=== PATIENT | male | born 1940 | race Caucasian/White ===

== ENCOUNTER → 2016-12-21 | Outpatient (CLI) | payer BC ==
[~2016-12-21] MED LIST: ASPEC81 PO; CMD/25 PO; CMD5 PO; FLM4 PO; LPT40 PO; MAGN400T6 PO; MULT-513 PO
[2016-12-21 17:35] LABS: BASO % 0.5 %; BASO ABS # 0.04 K/uL (0-0.2); COMPLETE YES; HEMATOCRIT 43.1 % (42-52); IG% 0.3 %; LYMPH % 20.4 %; LYMPH ABS # 1.78 K/uL (1.2-3.4); MEAN CELL VOLUME 95.4 fL (80-100); MEAN CORPUSCULAR HEMOGLOBIN 30.8 pg (25-34); MEAN CORPUSCULAR HGB CONC 32.3 g/dl (32-36); MEAN PLATELET VOLUME 10.5 fL (7.4-10.4); MONO % 11.6 %; NEUT % 65.2 %; PLATELET COUNT 281 K/uL (130-400); RED BLOOD COUNT 4.52 M/uL (4.7-6.1); WHITE BLOOD COUNT 8.71 K/uL (4.8-10.8)
== END | disposition home or self-care (01) ==
LOC: C.LAB1850 15:52
PROVIDERS: ATTEND Physician Assistant
DX: R10.9 Unspecified abdominal pain (principal)

== ENCOUNTER → 2017-01-07 | Outpatient (CLI) | payer BC ==
[2017-01-07 17:27] LABS: BLOOD UREA NITROGEN 20 mg/dl (7-18); BUN/CREATININE RATIO 20.7 (10-20); CREATININE 0.99 mg/dl (0.60-1.40)
== END | disposition home or self-care (01) ==
LOC: C.LAB1850 15:35
PROVIDERS: ATTEND Physician Assistant
DX: K57.32 Diverticulitis of large intestine without perforation or abscess without bleeding (principal); K40.90 Unilateral inguinal hernia, without obstruction or gangrene, not specified as recurrent; K43.2 Incisional hernia without obstruction or gangrene; R10.9 Unspecified abdominal pain

== ENCOUNTER → 2017-01-10 | Outpatient (CLI) | payer BC ==
[~2017-01-10] MED LIST changes: +OPTIRAY 320 IV PRN
--- NOTE | 2017-01-10 10:38 | DIAGNOSTIC IMAGING REPORT ---
ABDOMEN AND PELVIS CT WITH IV AND ORAL CONTRAST CT DOSE: 462.25 mGycm HISTORY: Pancreatic lesion 01/07/17 1537 CREAK 0.99 TECHNIQUE: Multiaxial CT images of the abdomen and pelvis were performed following the use of intravenous and oral contrast. COMPARISON STUDY: 05/04/2015 FINDINGS: Lung bases are clear. Liver enhances uniformly. Pancreatitis in the prior study has resolved. There continues to be a 2.2 cm cystic process in the region of the pancreatic uncinate process. This is unchanged from the prior 2 studies. Shows no significant postcontrast enhancement. Pancreas is uniform throughout. Inferior vena cava filter is present. Kidneys enhance uniformly. There is no evidence for hydronephrosis. There is no significant retroperitoneal or mesenteric adenopathy. There are findings of a prior revised left ostomy. There is a small residual ventral hernia containing fat exclusively. This is unchanged from the prior exam. Prostate is slightly prominent. Bladder is relatively collapsed. IMPRESSION: 1. Stable cystic lesion of the pancreatic uncinate process. 2. Prior cholecystectomy and inferior vena caval filter placement. 3. No acute process currently of the abdomen and pelvis.. Electronically signed by: Len Chauhan M.D. 01/10/2017 10:37 AM Dictated Date/Time: 01/10/2017 10:31 AM
== END | disposition home or self-care (01) ==
LOC: C.CTS 09:58
PROVIDERS: ATTEND Physician Assistant
DX: K43.2 Incisional hernia without obstruction or gangrene (principal); K57.32 Diverticulitis of large intestine without perforation or abscess without bleeding; K86.9 Disease of pancreas, unspecified; R10.9 Unspecified abdominal pain

== ENCOUNTER → 2017-05-18 | Outpatient (CLI) | payer BC ==
[~2017-05-18] MED LIST changes: -OPTIRAY 320 IV PRN
[2017-05-18 09:33] LABS: BASO % 0.8 %; BASO ABS # 0.04 K/uL (0-0.2); COMPLETE YES; EOS % 3.7 %; IG% 0.4 %; LYMPH % 31.3 %; LYMPH ABS # 1.53 K/uL (1.2-3.4); MEAN CELL VOLUME 95.1 fL (80-100); MEAN CORPUSCULAR HEMOGLOBIN 31.1 pg (25-34); MEAN CORPUSCULAR HGB CONC 32.7 g/dl (32-36); MEAN PLATELET VOLUME 11.3 fL (7.4-10.4); MONO % 16.8 %; PLATELET COUNT 209 K/uL (130-400); RED BLOOD COUNT 4.73 M/uL (4.7-6.1); WHITE BLOOD COUNT 4.89 K/uL (4.8-10.8)
[2017-05-18 09:54] LABS: ALT/SGPT 36 U/L (12-78); AST/SGOT 39 U/L (15-37); BLOOD UREA NITROGEN 23 mg/dl (7-18); BUN/CREATININE RATIO 22.6 (10-20); CALCIUM 9.3 mg/dl (8.5-10.1); CARBON DIOXIDE 30 mmol/L (21-32); CHLORIDE 106 mmol/L (98-107); CHOLESTEROL 169 mg/dl (0-200); GLUCOSE 90 mg/dl (70-99); HDL CHOLESTEROL 86 mg/dl; LDL CHOLESTEROL CALCULATED 68 mg/dl; POTASSIUM 4.1 mmol/L (3.5-5.1); SODIUM 139 mmol/L (136-145); TRIGLYCERIDES 74 mg/dl (0-150); VERY LOW DENSITY LIPOPROT CALC 15 mg/dl
[2017-05-18 09:56] LABS: ESTIMATED AVERAGE GLUCOSE 123 mg/dl; HA1C FLAG Normal (Normal)
--- NOTE | 2017-06-02 07:30 | CODING QUERY MEDICAL NECESSITY ---
SUPPORTING DIAGNOSIS NEEDED Dr. Delacruz, A supporting diagnosis is required for the test/procedure performed on this patient in order for us to be reimbursed by the patient's insurance. Please provide a supporting diagnosis for the following test/procedure listed below next to the test name along with your signature. *If there is no additional diagnosis for this patient that would support the following test/procedure please document that below next to the test/procedure. Test(s)/Procedure(s) that require a supporting diagnosis: * 94199 GLYCATED HEMOGLOBIN DIAGNOSIS: DATE OF SERVICE: 05/18/17 Provider Signature: Date: Thank you Bishnu Marroquin [facility] Information Management Once completed, please kindly fax back to [phone] For questions please call [phone]
== END | disposition home or self-care (01) ==
LOC: C.LAB1850 07:27
PROVIDERS: ATTEND Internal Medicine
DX: E78.5 Hyperlipidemia, unspecified (principal)

== ENCOUNTER → 2017-06-14 | Outpatient (CLI) | payer BC | END | disposition home or self-care (01) | LOC: C.LAB1850 15:35 | PROVIDERS: ATTEND Urology | DX: N40.1 Benign prostatic hyperplasia with lower urinary tract symptoms (principal) ==

== ENCOUNTER → 2017-09-09 | Outpatient (CLI) | payer BC | END | disposition home or self-care (01) | LOC: C.PATHSPEC 16:37 | PROVIDERS: ATTEND Physician Assistant | DX: L43.9 Lichen planus, unspecified (principal) ==

== ENCOUNTER → 2017-10-13 | Outpatient (CLI) | payer BC ==
[~2017-10-13] MED LIST changes: -ASPEC81 PO; +ASPI81TA28 PO; +DUTA0.5C PO; -FLM4 PO; +IBUP1CAP9 PO; +NTRGSL/4 UT; +OPTIRAY 320 IV PRN; +TAMS0.4C38 PO
--- NOTE | 2017-10-13 14:32 | DIAGNOSTIC IMAGING REPORT ---
ABD/PELVIS IV AND ORAL CONT CT DOSE: 397.80 mGy.cm HISTORY: Incisional hernia INCISIONAL HERNIA, PRE-OP TECHNIQUE: Multiaxial CT images of the abdomen and pelvis were performed following the use of intravenous and oral contrast. A dose lowering technique was utilized adhering to the principles of ALARA. COMPARISON STUDY: 01/10/2017 FINDINGS: Minimal dependent basilar atelectasis. Liver spleen and pancreas are uniform. Cystic lesion at pancreatic uncinate process is similar. It has a maximum current dimensions of 2.2 cm and is unchanged. Pancreatic duct shows no evidence for distention. Inferior vena caval filter is present. Kidneys enhance uniformly. No evidence for hydronephrosis. Bowel pattern is nonobstructive. There is left anterior abdominal wall hernia. This is a fat-containing with no evidence for a bowel component. Has a maximum transaxial dimension of 2.1 cm. There is a small periumbilical hernia containing a small amount of fat. This is a maximum diameter of 4 mm and is unchanged. Bladder is midline. There is no free fluid within the pelvic cul-de-sac. IMPRESSION: 1. Fat-containing left anterior wall ventral hernia containing fat exclusively. 2. This is a maximum diameter of 2.1 cm 3. Very small periumbilical hernia having a maximum diameter of 4 mm. 4. Cystic lesion of the pancreas unchanged from the prior study. The above report was generated using voice recognition software. It may contain grammatical, syntax or spelling errors. Electronically signed by: Len Chauhan M.D. 10/13/2017 2:31 PM Dictated Date/Time: 10/13/2017 2:23 PM
== END | disposition home or self-care (01) ==
LOC: C.CTS 13:46
PROVIDERS: ATTEND Surgery
DX: K43.2 Incisional hernia without obstruction or gangrene (principal); K43.9 Ventral hernia without obstruction or gangrene; K42.9 Umbilical hernia without obstruction or gangrene; K86.9 Disease of pancreas, unspecified

== ENCOUNTER 2017-10-24 05:12 | Inpatient (IN) | payer BC, OTHER ==
[2017-10-10 08:47] VITALS: BMI 24.0
--- NOTE | 2017-10-10 09:27 | PAT Medication Instructions ---
Service Date Oct 10, 2017. Current Home Medication List Aspirin (Aspirin Ec), 81 MG PO QPM Atorvastatin (Lipitor), 40 MG PO QPM Dutasteride (Avodart), 0.5 MG PO QPM Ibuprofen (Ibuprofen), 200 MG PO PRN Magnesium Oxide (Mag-Ox), 250 MG PO QAM Multivitamins/Minerals (Mvi With Minerals), 1 TAB PO QAM Nitroglycerin (Nitrostat), 0.4 MG UT PRN Tamsulosin Hcl (Flomax), 0.4 MG PO QPM Warfarin Sod (Coumadin), 1 TAB PO 2XWEEK Warfarin Sod (Coumadin), 1 TAB PO 5XWEEK Medication Instructions For Your Scheduled Surgery -Contact your surgeon for instructions for: Ibuprofen (Ibuprofen), 200 MG PO PRN -Contact your surgeon and cognos administrator for instructions for: Aspirin (Aspirin Ec), 81 MG PO QPM -Continue as directed: Nitroglycerin (Nitrostat), 0.4 MG UT PRN -Follow the instructions from the [facility] clinic for: Warfarin Sod (Coumadin), 1 TAB PO 2XWEEK Warfarin Sod (Coumadin), 1 TAB PO 5XWEEK - Hold the following medications the morning of surgery: Magnesium Oxide (Mag-Ox), 250 MG PO QAM Multivitamins/Minerals (Mvi With Minerals), 1 TAB PO QAM - Take the following medications as scheduled the night before surgery: Tamsulosin Hcl (Flomax), 0.4 MG PO QPM Atorvastatin (Lipitor), 40 MG PO QPM Dutasteride (Avodart), 0.5 MG PO QPM If you have any questions please call us at [phone] or [phone] or [phone]
[2017-10-10 10:42] LABS: BASO % 0.7 %; BASO ABS # 0.04 K/uL (0-0.2); EOS % 4.1 %; EOS ABS # 0.22 K/uL (0-0.5); HEMATOCRIT 43.5 % (42-52); HEMOGLOBIN 14.4 g/dL (14.0-18.0); IG# 0.01 K/uL (0.00-0.02); LYMPH ABS # 1.66 K/uL (1.2-3.4); MEAN CELL VOLUME 94.6 fL (80-100); MEAN CORPUSCULAR HEMOGLOBIN 31.3 pg (25-34); MEAN CORPUSCULAR HGB CONC 33.1 g/dl (32-36); MEAN PLATELET VOLUME 10.8 fL (7.4-10.4); MONO % 16.2 %; MONO ABS # 0.87 K/uL (0.11-0.59); NEUT % 47.8 %; NEUT ABS # 2.56 K/uL (1.4-6.5); PLATELET COUNT 218 K/uL (130-400); RED CELL DISTRIBUTION WIDTH CV 13.4 % (11.5-14.5); RED CELL DISTRIBUTION WIDTH SD 46.4 fL (36.4-46.3); WHITE BLOOD COUNT 5.36 K/uL (4.8-10.8)
[~2017-10-24] VITALS: Ht 175.3 cm; Wt 74.0 kg
[2017-10-24] VITALS (8 sets, daily range): BP systolic 118–152; BP diastolic 66–90; PULSE 47–72; TEMP 36.2–36.6; O2SAT 96–100; Ht 175.3 cm; Wt 74.0 kg
[~2017-10-24 05:12] MED LIST changes: -OPTIRAY 320 IV PRN
[2017-10-24] MEDS ORDERED: CEFAZOLIN 2000MG IV PUSH 15 ML IV SCH (06:00)
[2017-10-24] MEDS ORDERED: LACTATED RINGER'S 1000ML 1,000 ML IV SCH ×2 (06:00→11:30)
[2017-10-24] MEDS ORDERED: PATIENT'S ALLERGY INFO NEEDS ENTERED SCH (06:00)
[2017-10-24 06:31] LABS: PTT PATIENT 25.8 SECONDS (21.0-31.0)
[2017-10-24] MEDS ORDERED: BUPIVACAINE 0.5 % 5 MG/1 ML MPF 30ML VIAL ONE (06:39)
[2017-10-24] MEDS ORDERED: CEFAZOLIN SOD 1 GM VIAL ONE (06:40)
[2017-10-24] MEDS ORDERED: GLYCOPYRROLATE INJ 0.2 MG/ML VIAL ONE (06:43)
[2017-10-24] MEDS ORDERED: LIDOCAINE HCL 2% 2 ML VIAL (20MG/ML) ONE (06:43)
[2017-10-24] MEDS ORDERED: ONDANSETRON INJ 2 MG/ML 2 ML VIAL ONE (06:43)
[2017-10-24] MEDS ORDERED: DEXAMETHASONE SOD INJ 4 MG/ML VIAL ONE (06:43)
[2017-10-24] MEDS ORDERED: PROPOFOL IV EMULSION 10 MG/ML 20 ML VIAL IV ONE (06:43)
[2017-10-24] MEDS ORDERED: NEOSTIGMINE METHYLSULFATE 5 MG/5 ML SYR ONE (06:43)
[2017-10-24] MEDS ORDERED: MIDAZOLAM HCL 1 MG/ML 2ML VIAL ONE (06:44)
[2017-10-24] MEDS ORDERED: FENTANYL CITRATE INJ 50 MCG/1 ML 2 ML VIAL ONE ×2 (06:44→07:25)
--- NOTE | 2017-10-24 06:45 | History & Physical Bridge Note ---
H&P Re-Evaluation Bridge Note: I have examined the patient, reviewed the History & Physical and in the interval since the performance of the History & Physical I have noted the following changes of clinical significance: No changes noted
--- NOTE | 2017-10-24 06:57 | History and Physical ---
History & Physical Date Oct 24, 2017. Chief Complaint hernia History of Present Illness The patient is a 77 year old male with Lt abdominal wall hernia from prior colostomy site- some discomfort and enlargement Past Medical/Surgical History Medical Problems: (1) Acute diverticulitis (2) Colon cancer (3) Hernia (4) Inguinal hernia (5) Pancreatitis Surgical Problems: (1) H/O colostomy (2) S/P appendectomy (3) S/P cholecystectomy (4) S/P colon resection Additional History Hepatic Disease: No Endocrine Disorder: No Kidney Disease: No Hypertension: Yes Bleeding Tendencies: No Other: on warfarin for h/o PE Allergies Coded Allergies: Morphine (Verified Adverse Reaction, Mild, nausea, 10/24/17) Home Medications Scheduled Aspirin (Aspirin Ec), 81 MG PO QPM Atorvastatin (Lipitor), 40 MG PO QPM Dutasteride (Avodart), 0.5 MG PO QPM Ibuprofen (Ibuprofen), 200 MG PO PRN Magnesium Oxide (Mag-Ox), 250 MG PO QAM Multivitamins/Minerals (Mvi With Minerals), 1 TAB PO QAM Nitroglycerin (Nitrostat), 0.4 MG UT PRN Tamsulosin Hcl (Flomax), 0.4 MG PO QPM Warfarin Sod (Coumadin), 1 TAB PO 2XWEEK Warfarin Sod (Coumadin), 1 TAB PO 5XWEEK Physical Examination Skin: warm/dry Eyes: sclerae normal Head: atraumatic Neck: supple Respiratory/Chest: no respiratory distress Cardiovascular: regular rate, rhythm Abdomen / GI: normal bowel sounds, non tender, + pertinent finding (has reducible Lt abd wall hernia) Extremities: normal inspection Neurologic/Psych: alert Diagnosis incisional hernia Plan of Treatment pt is for laparoscopic , possible open incisional hernia repair
[2017-10-24] MEDS ORDERED: FENTANYL CITRATE INJ 50 MCG/1 ML 2 ML VIAL IV PRN (08:15)
[2017-10-24] MEDS ORDERED: EpHEDrine SULFATE INJ 50 MG/ML AMP IV PRN (08:15)
[2017-10-24] MEDS ORDERED: PROMETHAZINE HCL INJ 12.5 MG in SODIUM CHLORIDE 0.9% 50ML 50 ML IV PRN ×2 (08:15→11:30)
[2017-10-24] MEDS ORDERED: NALOXONE HCL 0.4 MG/1 ML VIAL/CARP IV PRN (08:15)
[2017-10-24] MEDS ORDERED: LABETALOL HCL IV 5 MG/ML 20ML IV PRN (08:15)
[2017-10-24] MEDS ORDERED: ONDANSETRON INJ 2 MG/ML 2 ML VIAL IV PRN ×2 (08:15→08:30)
[2017-10-24] MEDS ORDERED: FLUMAZENIL 0.1 MG/1 ML 10 ML VIAL IV PRN (08:15)
[2017-10-24] MEDS ORDERED: ATROPINE SULFATE 0.1 MG/ML 5ML SYR IV PRN (08:15)
--- NOTE | 2017-10-24 08:17 | [facility] Operative Report ---
Operative Report Operative Date Oct 24, 2017. Pre-Operative Diagnosis Incisional hernia Post-Operative Diagnosis Same adhesions Procedure(s) Performed Laparoscopic Incisional Hernia Repair with Mesh lysis of adhesions Surgeon Dr Post Linen Folder Surgeon(s) Nery Joy PA-C Estimated Blood Loss 20ml Findings 4 cm hernia, adhesions used 12.5 cm surgimesh Specimens None Drains None Anesthesia Type General Complication(s) none Disposition Recovery Room / PACU I attest to the content of the Intraoperative Record and any orders documented therein. Any exceptions are noted below.
[2017-10-24] MEDS ORDERED: EpHEDrine SULFATE 50MG/5ML SYR ONE (08:21)
[2017-10-24] MEDS ORDERED: ACETAMINOPHEN IV 100 ML IV ONE (08:30)
[2017-10-24] MEDS ORDERED: PROMETHAZINE HCL INJ 25 MG in SODIUM CHLORIDE 0.9% 50ML 50 ML IV PRN (08:30)
[2017-10-24] MEDS ORDERED: NITROGLYCERIN 0.4 MG SL PER TAB CHARGE UT SCH (08:30)
[2017-10-24] MEDS ORDERED: MoRPHine SULFATE 4 MG/ML 1 ML CARP\\VIAL IV PRN (08:30)
[2017-10-24] MEDS ORDERED: MoRPHine SULFATE 2 MG/ML CARP IV PRN (08:30)
--- NOTE | 2017-10-24 09:11 | Anesthesiology Progress Note ---
Anesthesia Post Op Note Date & Time Oct 24, 2017 at 09:11 Vital Signs Pain Intensity: 0 Vital Signs Past 12 Hours Date Time Temp Pulse Resp B/P (MAP) Pulse Ox O2 Delivery O2 Flow Rate FiO2 10/24/17 09:00 48 12 119/63 100 Oxymask 10 10/24/17 08:50 53 15 116/67 100 Oxymask 10 10/24/17 08:40 36.2 64 17 133/78 100 Oxymask 10 10/24/17 05:50 36.6 49 18 118/66 Room Air 97 Notes Mental Status: alert / awake / arousable, participated in evaluation Pt Amnestic to Procedure: Yes Nausea / Vomiting: adequately controlled Pain: adequately controlled Airway Patency, RR, SpO2: stable & adequate BP & HR: stable & adequate Hydration State: stable & adequate Anesthetic Complications: no major complications apparent
--- NOTE | 2017-10-24 09:51 | OPERATIVE REPORT ---
DATE OF OPERATION: 10/24/2017 NAME OF OPERATION: Laparoscopic incisional hernia repair with lysis of adhesions. PREOPERATIVE DIAGNOSIS: Incisional hernia. POSTOPERATIVE DIAGNOSIS: Same with adhesions. STAFF SURGEON: Dr. Post. ASSISTANT WOMEN'S BASKETBALL COACH: Nery Joy PA-C ANESTHESIA: General. DESCRIPTION OF PROCEDURE: The patient was brought into the operating room and placed on the operating table in the supine position. His abdomen was prepped and draped in the usual fashion. Richard catheter was placed. 0.5% plain Marcaine was used to anesthetize all incisions. Incision was made approximately 2 cm in the right upper quadrant, carrying dissection down to the fascia, placing a Veress needle and producing pneumoperitoneum. A balloon cannula was placed at this level and then the camera passed. The patient had adhesions in the midline and within the hernia sac on the left side. Two 5-mm ports were placed on the right side, one mid and one right lower quadrant. This was done under visualization. At this point, using cautery with scissors, the adhesions were all taken down over to the hernia as well as mobilizing the hernia and reducing the contents. At this point, the patient had a 4-cm defect. I felt that a 12.5-cm piece of Surgimesh would be appropriate. A circular piece was placed into the abdomen. The mesh was brought up through a stab incision over the defect using the suture within the mesh, the polypropylene was toward the fascia and the silicone was toward the bowel. At this point, in 2 layers, the mesh was tacked circumferentially using absorbable tacks. I also placed 2 retention sutures on the left side of the mesh to give it more security. This was done through 2 small stab incisions using 0 Ethibond with a suture passer. At this point, the pneumoperitoneum was reduced with good coverage and the mesh was relatively loose and not tight. All ports were removed. The pneumoperitoneum was reduced. The fascia in the right upper quadrant closed using interrupted 0 PDS suture. Subcutaneous tissue reapproximated using 2-0 plain catgut suture and then the skin reapproximated at all incisions using 5-0 Prolene suture. The patient was transferred to recovery room in stable condition. As a note, my certified teacher assistant Nery helped with prepping and draping, exposure of the adhesions and hernia as well as security of the mesh and closure of the wound. I attest to the content of the Intraoperative Record and any orders documented therein. Any exception s are noted below.
--- NOTE | 2017-10-24 10:56 | Medical Consult ---
Consultation Date of Consultation: Oct 24, 2017. Attending Physician: Tariq Post M.D. Reason for Consultation: medical co management History of Present Illness 77 years old man with PMHx of CAD, dyslipidemia , Diverticulitis, Intestinal obstruction s/p repair few years ago, complicated by incisional hernia. Presented to the hospital for an elective hernia repair. Patient does have history of pulmonary embolism/DVT status post Artie filter. He is also on Coumadin for 5 years. His DVT was provoked by his previous intestinal obstruction surgery. But currently that he has a Artie filter we recommended that he stays on Coumadin or an alternative anticoagulation therapy. Patient procedure went uneventful today. Coumadin was restarted by primary surgical team. He currently has no complaints Family History Cancer FH: diverticulitis Gallbladder disease Heart disease Hypertension Stroke Social History Smoking Status: Former Smoker Drug Use: none Marital Status: Housing Status: lives with family Occupation Status: retired Allergies Coded Allergies: Morphine (Verified Adverse Reaction, Mild, nausea, 10/24/17) Current Inpatient Medications Current Inpatient Medications Medications (Trade) Dose Ordered Sig/Ade Route Start Time Stop Time Status Last Admin Dose Admin Lactated Ringer's 1,000 ml @ 15 mls/hr Q24H IV 10/24/17 06:00 10/25/17 05:59 10/24/17 05:44 15 MLS/HR Cefazolin Sodium 15 ml @ 2.5 mls/min PREOP IV 10/24/17 06:00 10/24/17 18:00 10/24/17 06:59 2.5 MLS/MIN Fentanyl Citrate (Fentanyl Inj) 25 mcg Q5M PRN IV 10/24/17 08:15 10/24/17 13:15 Naloxone HCl (Narcan Inj) 0.2 mg Q2M PRN IV 10/24/17 08:15 10/24/17 13:15 Flumazenil (Romazicon Inj) 0.2 mg Q2M PRN IV 10/24/17 08:15 10/24/17 13:15 Ondansetron HCl (Zofran Inj) 4 mg ONE PRN IV 10/24/17 08:15 10/24/17 13:15 Promethazine HCl 12.5 mg/Sodium Chloride 50.5 ml @ 202 mls/hr ONE PRN IV 10/24/17 08:15 10/24/17 13:15 Labetalol HCl (Normodyne IV) 5 mg Q5M PRN IV 10/24/17 08:15 10/24/17 13:15 Ephedrine Sulfate (EpHEDrine SULFATE INJ) 5 mg Q5M PRN IV 10/24/17 08:15 10/24/17 13:15 Atropine Sulfate (Atropine Sulfate 0.1mg/ml Inj) 0.5 mg Q1M PRN IV 10/24/17 08:15 10/24/17 13:15 Atorvastatin Calcium (Lipitor Tab) 40 mg QPM PO 10/24/17 21:00 11/23/17 20:59 UNV Magnesium Oxide (Mag-Ox Tab) 250 mg QAM PO 10/24/17 09:00 11/23/17 08:59 UNV Nitroglycerin (Nitrostat Tab) 0.4 mg PRN UT 10/24/17 08:30 11/23/17 08:29 UNV Tamsulosin HCl (Flomax Cap) 0.4 mg QPM PO 10/24/17 21:00 11/23/17 20:59 UNV Warfarin Sodium (Coumadin Tab) 7.5 mg DAILY@16 PO 10/24/17 16:00 11/23/17 15:59 UNV Cefazolin Sodium 1000 mg/Dextrose 57.5 ml @ 100 mls/hr Q8H IV 10/24/17 08:30 11/03/17 08:29 UNV Acetaminophen/ Hydrocodone Bitart (Satsop 5/325 Tab) 1 tab Q4 PRN PO 10/24/17 08:30 11/07/17 08:29 UNV Acetaminophen/ Hydrocodone Bitart (S[place]op 5/325 Tab) 2 tab Q4 PRN PO 10/24/17 08:30 11/07/17 08:29 UNV Morphine Sulfate (MoRPHine SULFATE INJ) 2 mg Q4H PRN IV 10/24/17 08:30 11/07/17 08:29 UNV Morphine Sulfate (MoRPHine SULFATE INJ) 4 mg Q4H PRN IV 10/24/17 08:30 11/07/17 08:29 UNV Promethazine HCl 25 mg/Sodium Chloride 51 ml @ 204 mls/hr Q6H PRN IV 10/24/17 08:30 11/23/17 08:29 UNV Ondansetron HCl (Zofran Inj) 4 mg Q6H PRN IV 10/24/17 08:30 11/23/17 08:29 UNV Senna/Docusate Sodium (Senokot S Tab) 1 tab BID PO 10/24/17 11:00 11/23/17 10:59 UNV Magnesium Hydroxide (Milk Of Magnesia Susp) 30 ml BID PO 10/24/17 21:00 11/23/17 20:59 UNV Lactated Ringer's 1,000 ml @ 50 mls/hr Q20H IV 10/24/17 08:19 11/23/17 08:18 UNV Review of Systems Review of system Constitutional: No fever / no chills / no sweats / no weakness / no fatigue Eyes: no blurring of vision / no eye pain / no discharge / no redness ENT: no hearing loss / no epistaxis /no swallowing problems Respiratory: no cough / no wheezing / no SOB / no hemoptysis Cardiovascular: no Chest pain / no lower extremity edema / no palpitation Abdomen: no pain / no nausea / no vomiting / no constipation Musculoskeletal: no joint pain / no muscle pain / no joint swelling Genitourinary: no dysuria / no incontinence / no urinary retention Neurologic: no focal weakness / no numbness/tingling / no ataxia Psychiatric: no depression symptoms / no anxiety / no insomnia Endocrine: no excessive thirst / no excessive urination Hematologic: no abnormal bleeding / no bruising / no LN swelling Skin: No rash / no pallor Physical Exam Date Time Temp Pulse Resp B/P (MAP) Pulse Ox O2 Delivery O2 Flow Rate FiO2 10/24/17 10:39 36.4 53 18 132/75 (94) 100 Nasal Cannula 2.0 10/24/17 10:13 Nasal Cannula 2.0 10/24/17 09:30 36.2 47 16 130/74 (92) 100 Nasal Cannula 2.0 10/24/17 09:20 36.8 46 13 115/67 100 Nasal Cannula 2 10/24/17 09:10 51 12 125/68 100 Nasal Cannula 2 10/24/17 09:00 48 12 119/63 100 Oxymask 10 10/24/17 08:50 53 15 116/67 100 Oxymask 10 10/24/17 08:40 36.2 64 17 133/78 100 Oxymask 10 10/24/17 05:50 36.6 49 18 118/66 Room Air 97 Physical examination General patient appears to be comfortable, not in acute distress HEENT: Atraumatic , normocephalic /no jaundice /no pallor /anicteric /no dry mucous membrane /normal external ear inspection Neck: Supple /no swelling /central trach Heart: S1/S2 normal/regular rate and rhythm/no gallop /no rub /no murmur Lungs: Clear to auscultation bilaterally/normal chest with expansion/no rhonchi/ no rales/no wheezing/no use of accessory muscles of respiration Abdomen: Soft/nontender/no guarding/no rebound/no organomegaly/no pulsatile mass , abdominal incision is wrapped and slightly tender Musculoskeletal: No swelling/no edema/no tenderness/normal range of motion Neuro exam: Awake alert oriented 3/cranial nerves II through XII appear to be intact/sensation intact/moves all extremities/no abnormal movements Psychiatric evaluation: No depressed mood/normal affect Skin: No rash on exposed skin area/no erythema Extremity: Normal pulse/no pitting edema/no clubbing or cyanosis Endocrine/lymphatic: No obvious lymphadenopathy /no lymphedema Laboratory Results Last 24 Hours Test 10/24/17 05:56 10/24/17 10:43 Prothrombin Time 10.7 SECONDS Prothromb Time International Ratio 1.0 Activated Partial Thromboplast Time 25.8 SECONDS Partial Thromboplastin Ratio 1.0 Assessment & Plan 77 years old man with past medical history of CAD/dyslipidemia/pulmonary embolism/DVT/diverticulitis of colon/intestinal obstruction/PSA elevation. Presented to the hospital for hernia repair. 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 Patient presented to the hospital for an elective orthopedic procedure Plan Status post laparoscopic hernia repair with mesh and lysis of adhesions postoperative day #0 procedure went uneventful Patient tolerated procedure well with minimal blood loss Appears to be stable Continue outpatient medications, Coumadin was started by primary surgical team, since patient had a Artie IVC filter and history of DVT PE, started patient on heparin subcu DVT prophylaxis dose from tomorrow, then patient should be bridged with Lovenox full dose when surgical team allows until INR becomes therapeutic, discussed with patient considering 1 of the newer agents of anticoagulation which she will discuss with his primary care physician, my preference would be Martine. Ordered labs for now and labs for tomorrow morning. Follow-up labs Ensure adequate oral/parenteral intake Pain management Physical therapy initiation as per primary orthopedic team DVT prophylaxis as per the choice of primary orthopedic team
[2017-10-24] MEDS: DOCUSATE SODIUM/SENNA 50/8.6MG TAB PO SCH ×2 (11:00→21:39)
[2017-10-24 11:06] LABS: HEMOGLOBIN 14.5 g/dL (14.0-18.0); MEAN CELL VOLUME 93.5 fL (80-100); MEAN CORPUSCULAR HEMOGLOBIN 31.5 pg (25-34); MEAN CORPUSCULAR HGB CONC 33.7 g/dl (32-36); MEAN PLATELET VOLUME 10.1 fL (7.4-10.4); PLATELET COUNT 190 K/uL (130-400); RED CELL DISTRIBUTION WIDTH CV 13.2 % (11.5-14.5); WHITE BLOOD COUNT 6.44 K/uL (4.8-10.8)
[2017-10-24 11:26] LABS: CALCIUM 8.9 mg/dl (8.5-10.1); CREATININE 1.1 mg/dl (0.60-1.40); POTASSIUM 3.7 mmol/L (3.5-5.1)
[2017-10-24] MEDS: CEFAZOLIN IV 1,000 MG in SYRINGE 0 ML IV SCH ×2 (14:15→21:39)
[2017-10-24] MEDS: WARFARIN SOD 7.5 MG TAB PO SCH (15:39)
[2017-10-24] MEDS: HYDROCODONE/ACETAMIN 5/325MG TAB PO PRN ×2 (15:40→19:33)
[2017-10-24] MEDS: MAGNESIUM HYDROXIDE SUSP 30 ML UDC PO SCH (21:38)
[2017-10-24] MEDS: ATORVASTATIN 40 MG TAB PO SCH (21:39)
[2017-10-24] MEDS: TAMSULOSIN HCL 0.4 MG CAP PO SCH (21:39)
[2017-10-25] MEDS: HYDROCODONE/ACETAMIN 5/325MG TAB PO PRN ×4 (00:01→21:54)
[2017-10-25 00:10] VITALS: O2SAT 96
[2017-10-25 03:24] VITALS: BP 111/61; PULSE 48; TEMP 36.6; O2SAT 95
[2017-10-25] MEDS: CEFAZOLIN IV 1,000 MG in SYRINGE 0 ML IV SCH ×3 (06:03→21:38)
--- NOTE | 2017-10-25 06:11 | Surgery Progress Note ---
Surgery Progress Note Date of Service Oct 25, 2017. Subjective some abd pain- tolerating po Objective Vital Signs: Date Time Temp Pulse Resp B/P (MAP) Pulse Ox O2 Delivery O2 Flow Rate FiO2 10/25/17 03:24 36.6 48 18 111/61 (78) 95 Room Air 10/25/17 00:10 96 Room Air 10/24/17 23:13 36.4 48 18 131/72 (91) 96 Room Air 10/24/17 19:48 36.4 72 17 146/90 (108) 98 Room Air 10/24/17 15:30 Room Air 10/24/17 15:21 36.4 61 16 152/83 (106) 97 Room Air 10/24/17 12:00 36.3 54 16 121/74 (90) 100 Room Air 10/24/17 11:08 54 16 125/75 (92) 98 Room Air 10/24/17 10:39 36.4 53 18 132/75 (94) 100 Nasal Cannula 2.0 10/24/17 10:13 Nasal Cannula 2.0 10/24/17 09:30 36.2 47 16 130/74 (92) 100 Nasal Cannula 2.0 10/24/17 09:20 36.8 46 13 115/67 100 Nasal Cannula 2 10/24/17 09:10 51 12 125/68 100 Nasal Cannula 2 10/24/17 09:00 48 12 119/63 100 Oxymask 10 10/24/17 08:50 53 15 116/67 100 Oxymask 10 10/24/17 08:40 36.2 64 17 133/78 100 Oxymask 10 General Appearance: no apparent distress Head: atraumatic Neck: supple Respiratory/Chest: no respiratory distress Abdomen: soft, + tenderness Incision(s): intact Laboratory Results: Results Past 24 Hours Test 10/24/17 10:55 10/25/17 04:44 Range/Units White Blood Count 6.44 4.8-10.8 K/uL Red Blood Count 4.60 4.7-6.1 M/uL Hemoglobin 14.5 14.0-18.0 g/dL Hematocrit 43.0 42-52 % Mean Corpuscular Volume 93.5 80-100 fL Mean Corpuscular Hemoglobin 31.5 25-34 pg Mean Corpuscular Hemoglobin Concent 33.7 32-36 g/dl RDW Standard Deviation 45.0 36.4-46.3 fL RDW Coefficient of Variation 13.2 11.5-14.5 % Platelet Count 190 130-400 K/uL Mean Platelet Volume 10.1 7.4-10.4 fL Sodium Level 139 136-145 mmol/L Potassium Level 3.7 3.5-5.1 mmol/L Chloride Level 106 98-107 mmol/L Carbon Dioxide Level 28 21-32 mmol/L Anion Gap 5.0 3-11 mmol/L Blood Urea Nitrogen 21 7-18 mg/dl Creatinine 1.10 0.60-1.40 mg/dl Est Creatinine Clear Calc Drug Dose 55.4 ml/min Estimated GFR () 74.1 Estimated GFR (Non- 64.0 BUN/Creatinine Ratio 19.2 10-20 Random Glucose 140 70-99 mg/dl Calcium Level 8.9 8.5-10.1 mg/dl Assessment & Plan 10/25/17- cont IV atbx, ambulate, give 7.5mg Warfarin today and subcu Heparin plan would be to cont same today and d/c tomorrow if pain controlled on Coumadin only w/o Lovenox.
[2017-10-25] MEDS ORDERED: HYDR-5688 PO (06:12)
--- NOTE | 2017-10-25 06:18 | Discharge Instructions ---
Discharge Instructions Date of Service Oct 25, 2017. Admission Reason for Admission: Incisional Hernia Discharge Discharge Diagnosis / Problem: incisional hernia Discharge Goals Goal(s): Decrease discomfort, Improve function, Improve disease control Activity Recommendations Activity Limitations: as noted below Lifting Limitations: no more than 25 pounds Exercise/Sports Limitations: until after follow-up appointment May Resume Sexual Activity: when tolerated Shower/Bathe: tomorrow Driving or Machine Use: wait 5 days . Instructions / Follow-Up Instructions / Follow-Up SPECIAL CARE INSTRUCTIONS: * Cover incisions and change daily for comfort/drainage. resume usual daily dose of Warfarin * Avoid constipation- may use Senokot S and Milk of magnesia twice daily as directed on the package * May use ibuprofen for pain as tolerated. * Expect some swelling and bruising. Call your doctor if: * Temperature above 101 degrees * Pain not relieved by pain medicine ordered * There is increased drainage or redness from any incision * You have any unanswered questions or concerns [phone]. FOLLOW UP VISIT: If not already scheduled, please call the office for a follow-up visit. for next week- wound check and some suture removal OFFICE PHONE NUMBER: Dr. Post Office Current Hospital Diet Patient's current hospital diet: Regular Diet Discharge Diet Recommended Diet: Regular Diet Procedures Procedures Performed: Laparoscopic Incisional Hernia Repair with Mesh lysis of adhesions Pending Studies Studies pending at discharge: no Medical Emergencies . Who to Call and When: Medical Emergencies: If at any time you feel your situation is an emergency, please call 911 immediately. . Non-Emergent Contact Non-Emergency issues call your: Primary Care Provider, Surgeon . "Provider Documentation" section prepared by Tariq Post. . VTE Core Measure Inpt VTE Proph given/why not?: Unfractionated heparin SQ, Warfarin (Coumadin), SCD's
[2017-10-25 07:11] VITALS: BP 114/81; PULSE 49; TEMP 36.3; O2SAT 98
[2017-10-25] MEDS: MAGNESIUM OXIDE 400 MG TAB PO SCH (08:08)
[2017-10-25] MEDS: DOCUSATE SODIUM/SENNA 50/8.6MG TAB PO SCH ×2 (08:08→21:38)
[2017-10-25] MEDS: MAGNESIUM HYDROXIDE SUSP 30 ML UDC PO SCH ×2 (08:10→21:53)
[2017-10-25 08:21] LABS: BASO % 0.1 %; BASO ABS # 0.01 K/uL (0-0.2); EOS % 0.1 %; EOS ABS # 0.01 K/uL (0-0.5); HEMATOCRIT 41.3 % (42-52); HEMOGLOBIN 13.9 g/dL (14.0-18.0); IG# 0.03 K/uL (0.00-0.02); LYMPH % 8.4 %; LYMPH ABS # 1.01 K/uL (1.2-3.4); MEAN CELL VOLUME 93.7 fL (80-100); MEAN CORPUSCULAR HEMOGLOBIN 31.5 pg (25-34); MEAN CORPUSCULAR HGB CONC 33.7 g/dl (32-36); MEAN PLATELET VOLUME 10.2 fL (7.4-10.4); MONO ABS # 1.08 K/uL (0.11-0.59); NEUT % 82.2 %; NEUT ABS # 9.89 K/uL (1.4-6.5); PLATELET COUNT 208 K/uL (130-400); RED CELL DISTRIBUTION WIDTH CV 13.2 % (11.5-14.5); RED CELL DISTRIBUTION WIDTH SD 45.6 fL (36.4-46.3); WHITE BLOOD COUNT 12.03 K/uL (4.8-10.8)
[2017-10-25 08:54] LABS: ALBUMIN 3.4 gm/dl (3.4-5.0); CALCIUM 8.9 mg/dl (8.5-10.1); CREATININE 1.03 mg/dl (0.60-1.40); POTASSIUM 4.1 mmol/L (3.5-5.1)
[2017-10-25 08:57] LABS: TOTAL PROTEIN 6.6 gm/dl (6.4-8.2)
[2017-10-25] MEDS ORDERED: HEPARIN SOD 5000 UNIT/0.5 ML CARP SQ SCH (09:00)
--- NOTE | 2017-10-25 11:12 | Family Medicine Progress Note ---
Progress Note Date of Service Oct 25, 2017. Subjective Pt evaluation today including: conversation w/ patient, physical exam, chart review, lab review, review of inpatient medication list Pain: Mild pain over surgical site with ambulation PO Intake: Tolerating PO intake Voiding: no voiding problems Mr. Arnold reports he feels well today. He notes twinges of pain over his surgical site with ambulation, but is otherwise comfortable. He denies chest pain, SOB, n/v, fever or chills, or swelling/tenderness in his legs. Constitutional: No fever, No chills, No weakness Respiratory: No cough, No sputum, No wheezing, No shortness of breath, No dyspnea on exertion Cardiovascular: No chest pain Abdomen: No nausea, No vomiting All Other Systems: Reviewed and Negative Medications Current Inpatient Medications Medications (Trade) Dose Ordered Sig/Ade Route Start Time Stop Time Status Last Admin Dose Admin Atorvastatin Calcium (Lipitor Tab) 40 mg QPM PO 10/24/17 21:00 11/23/17 20:59 10/24/17 21:39 40 MG Magnesium Oxide (Mag-Ox Tab) 400 mg QAM PO 10/25/17 09:00 11/24/17 08:59 10/25/17 08:08 400 MG Nitroglycerin (Nitrostat Tab) 0.4 mg PRN UT 10/24/17 08:30 11/23/17 08:29 Tamsulosin HCl (Flomax Cap) 0.4 mg QPM PO 10/24/17 21:00 11/23/17 20:59 10/24/17 21:39 0.4 MG Warfarin Sodium (Coumadin Tab) 7.5 mg DAILY@16 PO 10/24/17 16:00 11/23/17 15:59 10/24/17 15:39 7.5 MG Cefazolin Sodium 1000 mg/Syringe 7.5 ml @ 2.5 mls/min Q8H IV 10/24/17 14:00 11/03/17 13:59 10/25/17 06:03 2.5 MLS/MIN Acetaminophen/ Hydrocodone Bitart ([place] 5/325 Tab) 1 tab Q4 PRN PO 10/24/17 08:30 11/07/17 08:29 Acetaminophen/ Hydrocodone Bitart ([place] 5/325 Tab) 2 tab Q4 PRN PO 10/24/17 08:30 11/07/17 08:29 10/25/17 05:30 2 TAB Morphine Sulfate (MoRPHine SULFATE INJ) 2 mg Q4H PRN IV 10/24/17 08:30 11/07/17 08:29 Morphine Sulfate (MoRPHine SULFATE INJ) 4 mg Q4H PRN IV 10/24/17 08:30 11/07/17 08:29 Promethazine HCl 25 mg/Sodium Chloride 51 ml @ 204 mls/hr Q6H PRN IV 10/24/17 08:30 11/23/17 08:29 Ondansetron HCl (Zofran Inj) 4 mg Q6H PRN IV 10/24/17 08:30 11/23/17 08:29 Senna/Docusate Sodium (Senokot S Tab) 1 tab BID PO 10/24/17 11:00 11/23/17 10:59 10/25/17 08:08 1 TAB Magnesium Hydroxide (Milk Of Magnesia Susp) 30 ml BID PO 10/24/17 21:00 11/23/17 20:59 10/25/17 08:10 30 ML Promethazine HCl 12.5 mg/Sodium Chloride 50.5 ml @ 204 mls/hr Q6H PRN IV 10/24/17 11:30 11/23/17 11:29 Heparin Sodium (Porcine) (Heparin Sq 5000 Unit/0.5ml) 5,000 unit Q8 SQ 10/25/17 17:00 11/24/17 16:59 UNV Objective Vital Signs Date Time Temp Pulse Resp B/P (MAP) Pulse Ox O2 Delivery O2 Flow Rate FiO2 10/25/17 10:26 Room Air 10/25/17 07:11 36.3 49 16 114/81 (92) 98 Room Air 10/25/17 03:24 36.6 48 18 111/61 (78) 95 Room Air 10/25/17 00:10 96 Room Air 10/24/17 23:13 36.4 48 18 131/72 (91) 96 Room Air 10/24/17 19:48 36.4 72 17 146/90 (108) 98 Room Air 10/24/17 15:30 Room Air 10/24/17 15:21 36.4 61 16 152/83 (106) 97 Room Air 10/24/17 12:00 36.3 54 16 121/74 (90) 100 Room Air Physical Exam General Appearance: WD/WN, no apparent distress Respiratory/Chest: lungs clear, normal breath sounds, no respiratory distress, no accessory muscle use Cardiovascular: regular rate, rhythm, no edema, no gallop Abdomen: soft, + pertinent finding (dressing clean/dry/intact) Extremities: non-tender, no pedal edema, no calf tenderness Neurologic/Psychiatric: alert, normal mood/affect, oriented x 3 Laboratory Results Last 24 Hours Test 10/25/17 07:54 White Blood Count 12.03 K/uL Red Blood Count 4.41 M/uL Hemoglobin 13.9 g/dL Hematocrit 41.3 % Mean Corpuscular Volume 93.7 fL Mean Corpuscular Hemoglobin 31.5 pg Mean Corpuscular Hemoglobin Concent 33.7 g/dl Platelet Count 208 K/uL Mean Platelet Volume 10.2 fL Neutrophils (%) (Auto) 82.2 % Lymphocytes (%) (Auto) 8.4 % Monocytes (%) (Auto) 9.0 % Eosinophils (%) (Auto) 0.1 % Basophils (%) (Auto) 0.1 % Neutrophils # (Auto) 9.89 K/uL Lymphocytes # (Auto) 1.01 K/uL Monocytes # (Auto) 1.08 K/uL Eosinophils # (Auto) 0.01 K/uL Basophils # (Auto) 0.01 K/uL RDW Standard Deviation 45.6 fL RDW Coefficient of Variation 13.2 % Immature Granulocyte % (Auto) 0.2 % Immature Granulocyte # (Auto) 0.03 K/uL Prothrombin Time 11.0 SECONDS Prothromb Time International Ratio 1.0 Sodium Level 138 mmol/L Potassium Level 4.1 mmol/L Chloride Level 104 mmol/L Carbon Dioxide Level 29 mmol/L Anion Gap 4.0 mmol/L Blood Urea Nitrogen 21 mg/dl Creatinine 1.03 mg/dl Est Creatinine Clear Calc Drug Dose 59.1 ml/min Estimated GFR () 80.3 Estimated GFR (Non- 69.3 BUN/Creatinine Ratio 20.5 Random Glucose 95 mg/dl Calcium Level 8.9 mg/dl Magnesium Level 2.4 mg/dl Total Bilirubin 0.5 mg/dl Aspartate Amino Transf (AST/SGOT) 27 U/L Alanine Aminotransferase (ALT/SGPT) 28 U/L Alkaline Phosphatase 73 U/L Total Protein 6.6 gm/dl Albumin 3.4 gm/dl Globulin 3.2 gm/dl Albumin/Globulin Ratio 1.1 Assessment and Plan Mr. Arnold is a 77 year old man with a past medical history of CAD, dyslipidemia , provoked DVT and pulmonary embolism after a prior surgery, diverticulitis s/p intestinal obstruction, resection and subsequent incisional hernia who presented to the hospital for elective repair of his incisional hernia. 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 Discussed with the resident physician and agree with findings and plan as documented in the note. I also discussed the case with Dr. Post at bedside in the presence of the patient. Any exceptions or clarifications are listed here: The patient has a history of a single provoked VTE now S/P [place] Filter, and has been maintained on coumadin since that time (about three years ago). One dictation notes a history of multiple thrombotic events, but the patient's recollection is only of a single event (DVT and PE) - and my review of the EMR only indicates single, provoked VTE. He was not bridged prior to surgery. If there is concern for post operative bleeding, it may be reasonable to reinitiate Coumadin without Lovenox bridging ( based both on the fact he has history of a single, provoked VTE, has has a filter in place, and is ambulatory and active in his daily routine). I would continue prophylaxis dosing of heparin while he is hospitalized and less active. All of this was discussed with the patient. Documented By: Eric Mccormack Resident Tracking Resident Involvement: Resident Care Provided Care Provided: [facility] Medicine
--- NOTE | 2017-10-25 11:24 | Anesthesiology Progress Note ---
Anesthesia Post Op Note Date & Time Oct 25, 2017 at 11:23 Vital Signs Pain Intensity: 0.0 Vital Signs Past 12 Hours Date Time Temp Pulse Resp B/P (MAP) Pulse Ox O2 Delivery O2 Flow Rate FiO2 10/25/17 10:26 Room Air 10/25/17 07:11 36.3 49 16 114/81 (92) 98 Room Air 10/25/17 03:24 36.6 48 18 111/61 (78) 95 Room Air 10/25/17 00:10 96 Room Air Notes Mental Status: alert / awake / arousable, participated in evaluation Pt Amnestic to Procedure: Yes Nausea / Vomiting: adequately controlled Pain: adequately controlled Airway Patency, RR, SpO2: stable & adequate BP & HR: stable & adequate Hydration State: stable & adequate Anesthetic Complications: no major complications apparent OOB in chair. No complaints of discomfort. Satisified with anesthesia care. VSS
[2017-10-25 12:06] VITALS: BP 143/82; PULSE 64; TEMP 36.4; O2SAT 98
[2017-10-25] MEDS: HEPARIN SOD 5000 UNIT/0.5 ML CARP SQ SCH ×2 (14:26→21:53)
[2017-10-25 15:09] VITALS: BP 132/63; PULSE 67; TEMP 36.4; O2SAT 97
[2017-10-25] MEDS: WARFARIN SOD 7.5 MG TAB PO SCH (16:48)
[2017-10-25] MEDS ORDERED: ENOXAPARIN 1 MG/KG SQ SCH (21:00)
[2017-10-25] MEDS: TAMSULOSIN HCL 0.4 MG CAP PO SCH (21:38)
[2017-10-25] MEDS: ATORVASTATIN 40 MG TAB PO SCH (21:38)
[2017-10-25 22:55] VITALS: BP 124/72; PULSE 60; TEMP 36.6; O2SAT 96
[2017-10-26 00:20] VITALS: O2SAT 96
[2017-10-26] MEDS: HYDROCODONE/ACETAMIN 5/325MG TAB PO PRN (03:10)
[2017-10-26] MEDS ORDERED: CEPH500C2 PO (06:02)
[2017-10-26] MEDS: CEFAZOLIN IV 1,000 MG in SYRINGE 0 ML IV SCH (06:07)
[2017-10-26] MEDS: HEPARIN SOD 5000 UNIT/0.5 ML CARP SQ SCH (06:10)
[2017-10-26] MEDS ORDERED: POLYETHYLENE (MIRALAX) 17 GM PACK PO STA (06:18)
--- NOTE | 2017-10-26 06:20 | Surgery Progress Note ---
Surgery Progress Note Date of Service Oct 26, 2017. Subjective overall stable- ++flatus, no bm on Warfarin, SC Hep Objective Vital Signs: Date Time Temp Pulse Resp B/P (MAP) Pulse Ox O2 Delivery O2 Flow Rate FiO2 10/26/17 00:20 96 Room Air 10/25/17 22:55 36.6 60 16 124/72 (89) 96 Room Air 10/25/17 16:10 Room Air 10/25/17 15:09 36.4 67 16 132/63 (86) 97 Room Air 10/25/17 12:06 36.4 64 16 143/82 (102) 98 Room Air 10/25/17 10:26 Room Air 10/25/17 07:11 36.3 49 16 114/81 (92) 98 Room Air General Appearance: no apparent distress Respiratory/Chest: no respiratory distress Abdomen: normal bowel sounds, soft Incision(s): intact Laboratory Results: Results Past 24 Hours Test 10/25/17 07:54 10/26/17 04:44 Range/Units White Blood Count 12.03 4.8-10.8 K/uL Red Blood Count 4.41 4.7-6.1 M/uL Hemoglobin 13.9 14.0-18.0 g/dL Hematocrit 41.3 42-52 % Mean Corpuscular Volume 93.7 80-100 fL Mean Corpuscular Hemoglobin 31.5 25-34 pg Mean Corpuscular Hemoglobin Concent 33.7 32-36 g/dl Platelet Count 208 130-400 K/uL Mean Platelet Volume 10.2 7.4-10.4 fL Neutrophils (%) (Auto) 82.2 % Lymphocytes (%) (Auto) 8.4 % Monocytes (%) (Auto) 9.0 % Eosinophils (%) (Auto) 0.1 % Basophils (%) (Auto) 0.1 % Neutrophils # (Auto) 9.89 1.4-6.5 K/uL Lymphocytes # (Auto) 1.01 1.2-3.4 K/uL Monocytes # (Auto) 1.08 0.11-0.59 K/uL Eosinophils # (Auto) 0.01 0-0.5 K/uL Basophils # (Auto) 0.01 0-0.2 K/uL RDW Standard Deviation 45.6 36.4-46.3 fL RDW Coefficient of Variation 13.2 11.5-14.5 % Immature Granulocyte % (Auto) 0.2 % Immature Granulocyte # (Auto) 0.03 0.00-0.02 K/uL Prothrombin Time 11.0 9.0-12.0 SECONDS Prothromb Time International Ratio 1.0 0.9-1.1 Sodium Level 138 136-145 mmol/L Potassium Level 4.1 3.5-5.1 mmol/L Chloride Level 104 98-107 mmol/L Carbon Dioxide Level 29 21-32 mmol/L Anion Gap 4.0 3-11 mmol/L Blood Urea Nitrogen 21 7-18 mg/dl Creatinine 1.03 0.60-1.40 mg/dl Est Creatinine Clear Calc Drug Dose 59.1 ml/min Estimated GFR () 80.3 Estimated GFR (Non- 69.3 BUN/Creatinine Ratio 20.5 10-20 Random Glucose 95 70-99 mg/dl Calcium Level 8.9 8.5-10.1 mg/dl Magnesium Level 2.4 1.8-2.4 mg/dl Total Bilirubin 0.5 0.2-1 mg/dl Aspartate Amino Transf (AST/SGOT) 27 15-37 U/L Alanine Aminotransferase (ALT/SGPT) 28 12-78 U/L Alkaline Phosphatase 73 45-117 U/L Total Protein 6.6 6.4-8.2 gm/dl Albumin 3.4 3.4-5.0 gm/dl Globulin 3.2 2.5-4.0 gm/dl Albumin/Globulin Ratio 1.1 0.9-2 Assessment & Plan 10/26/17- plan to d/c home today after given Miralax and labs checked to determine dose of Warfarin- may need addnl 7.5 mg today. will assess pt later in am- prob d/c after lunch 10/25/17- cont IV atbx, ambulate, give 7.5mg Warfarin today and subcu Heparin plan would be to cont same today and d/c tomorrow if pain controlled on Coumadin only w/o Lovenox. 10/25/17- cont IV atbx, ambulate, give 7.5mg Warfarin today and subcu Heparin plan would be to cont same today and d/c tomorrow if pain controlled on Coumadin only w/o Lovenox.
[2017-10-26 06:58] LABS: BASO % 0.2 %; BASO ABS # 0.02 K/uL (0-0.2); EOS % 2.1 %; EOS ABS # 0.18 K/uL (0-0.5); HEMOGLOBIN 12.9 g/dL (14.0-18.0); IG# 0.02 K/uL (0.00-0.02); LYMPH % 24.4 %; LYMPH ABS # 2.06 K/uL (1.2-3.4); MEAN CELL VOLUME 94.9 fL (80-100); MEAN CORPUSCULAR HEMOGLOBIN 29.9 pg (25-34); MEAN CORPUSCULAR HGB CONC 31.5 g/dl (32-36); MEAN PLATELET VOLUME 10.6 fL (7.4-10.4); MONO ABS # 0.76 K/uL (0.11-0.59); NEUT % 64.1 %; NEUT ABS # 5.39 K/uL (1.4-6.5); PLATELET COUNT 189 K/uL (130-400); RED CELL DISTRIBUTION WIDTH CV 13.3 % (11.5-14.5); RED CELL DISTRIBUTION WIDTH SD 46.4 fL (36.4-46.3); WHITE BLOOD COUNT 8.43 K/uL (4.8-10.8)
[2017-10-26 07:04] LABS: INR 1.5 (0.9-1.1)
[2017-10-26 07:57] VITALS: BP 126/76; PULSE 60; TEMP 36.4; O2SAT 95
[2017-10-26 08:04] VITALS: O2SAT 95
[2017-10-26] MEDS ORDERED: WARFARIN SOD 5 MG TAB PO ONE (09:00)
[2017-10-26] MEDS: MAGNESIUM HYDROXIDE SUSP 30 ML UDC PO SCH (09:38)
[2017-10-26] MEDS: MAGNESIUM OXIDE 400 MG TAB PO SCH (09:38)
[2017-10-26] MEDS: DOCUSATE SODIUM/SENNA 50/8.6MG TAB PO SCH (09:38)
[2017-10-26 10:13] VITALS: BP 126/76; PULSE 60; TEMP 36.4; O2SAT 95
--- NOTE | 2017-10-26 10:34 | Family Medicine Progress Note ---
Progress Note Date of Service Oct 26, 2017. Subjective Pt evaluation today including: conversation w/ patient, physical exam, chart review, lab review, review of inpatient medication list Pain: Minimal pain reported PO Intake: Tolerating PO intake Voiding: no voiding problems Mr. Arnold reports he feels well today. He is ambulating without issues. He denies fever, chills, chest pain, SOB, n/v, calf swelling. Constitutional: No fever, No chills Respiratory: No cough, No sputum, No wheezing, No shortness of breath Cardiovascular: No chest pain Abdomen: + constipation, No nausea, No vomiting All Other Systems: Reviewed and Negative Medications Current Inpatient Medications Medications (Trade) Dose Ordered Sig/Ade Route Start Time Stop Time Status Last Admin Dose Admin Atorvastatin Calcium (Lipitor Tab) 40 mg QPM PO 10/24/17 21:00 11/23/17 20:59 10/25/17 21:38 40 MG Magnesium Oxide (Mag-Ox Tab) 400 mg QAM PO 10/25/17 09:00 11/24/17 08:59 10/26/17 09:38 400 MG Nitroglycerin (Nitrostat Tab) 0.4 mg PRN UT 10/24/17 08:30 11/23/17 08:29 Tamsulosin HCl (Flomax Cap) 0.4 mg QPM PO 10/24/17 21:00 11/23/17 20:59 10/25/17 21:38 0.4 MG Cefazolin Sodium 1000 mg/Syringe 7.5 ml @ 2.5 mls/min Q8H IV 10/24/17 14:00 11/03/17 13:59 10/26/17 06:07 2.5 MLS/MIN Acetaminophen/ Hydrocodone Bitart ([place] 5/325 Tab) 1 tab Q4 PRN PO 10/24/17 08:30 11/07/17 08:29 10/26/17 03:10 1 TAB Acetaminophen/ Hydrocodone Bitart ([place] 5/325 Tab) 2 tab Q4 PRN PO 10/24/17 08:30 11/07/17 08:29 10/25/17 13:18 2 TAB Morphine Sulfate (MoRPHine SULFATE INJ) 2 mg Q4H PRN IV 10/24/17 08:30 11/07/17 08:29 Morphine Sulfate (MoRPHine SULFATE INJ) 4 mg Q4H PRN IV 10/24/17 08:30 11/07/17 08:29 Promethazine HCl 25 mg/Sodium Chloride 51 ml @ 204 mls/hr Q6H PRN IV 10/24/17 08:30 11/23/17 08:29 Ondansetron HCl (Zofran Inj) 4 mg Q6H PRN IV 10/24/17 08:30 11/23/17 08:29 Senna/Docusate Sodium (Senokot S Tab) 1 tab BID PO 10/24/17 11:00 11/23/17 10:59 10/26/17 09:38 1 TAB Magnesium Hydroxide (Milk Of Magnesia Susp) 30 ml BID PO 10/24/17 21:00 11/23/17 20:59 10/26/17 09:38 30 ML Promethazine HCl 12.5 mg/Sodium Chloride 50.5 ml @ 204 mls/hr Q6H PRN IV 10/24/17 11:30 11/23/17 11:29 Heparin Sodium (Porcine) (Heparin Sq 5000 Unit/0.5ml) 5,000 unit Q8 SQ 10/25/17 14:00 11/24/17 13:59 10/26/17 06:10 5,000 UNIT Objective Vital Signs Date Time Temp Pulse Resp B/P (MAP) Pulse Ox O2 Delivery O2 Flow Rate FiO2 10/26/17 08:04 95 Room Air 10/26/17 07:57 36.4 60 18 126/76 (93) 95 Room Air 10/26/17 00:20 96 Room Air 10/25/17 22:55 36.6 60 16 124/72 (89) 96 Room Air 10/25/17 16:10 Room Air 10/25/17 15:09 36.4 67 16 132/63 (86) 97 Room Air 10/25/17 12:06 36.4 64 16 143/82 (102) 98 Room Air 10/25/17 10:26 Room Air Physical Exam General Appearance: WD/WN, no apparent distress Respiratory/Chest: lungs clear, normal breath sounds, no respiratory distress, no accessory muscle use Cardiovascular: regular rate, rhythm, no edema, no gallop, no murmur Abdomen: non tender, soft, + pertinent finding (incision c/d/i) Extremities: no pedal edema, no calf tenderness Laboratory Results Last 24 Hours Test 10/26/17 06:32 White Blood Count 8.43 K/uL Red Blood Count 4.32 M/uL Hemoglobin 12.9 g/dL Hematocrit 41.0 % Mean Corpuscular Volume 94.9 fL Mean Corpuscular Hemoglobin 29.9 pg Mean Corpuscular Hemoglobin Concent 31.5 g/dl Platelet Count 189 K/uL Mean Platelet Volume 10.6 fL Neutrophils (%) (Auto) 64.1 % Lymphocytes (%) (Auto) 24.4 % Monocytes (%) (Auto) 9.0 % Eosinophils (%) (Auto) 2.1 % Basophils (%) (Auto) 0.2 % Neutrophils # (Auto) 5.39 K/uL Lymphocytes # (Auto) 2.06 K/uL Monocytes # (Auto) 0.76 K/uL Eosinophils # (Auto) 0.18 K/uL Basophils # (Auto) 0.02 K/uL RDW Standard Deviation 46.4 fL RDW Coefficient of Variation 13.3 % Immature Granulocyte % (Auto) 0.2 % Immature Granulocyte # (Auto) 0.02 K/uL Prothrombin Time 15.7 SECONDS Prothromb Time International Ratio 1.5 Assessment and Plan Mr. Arnold is a 77 year old man with a past medical history of CAD, dyslipidemia , provoked DVT and pulmonary embolism after a prior surgery, diverticulitis s/p intestinal obstruction, resection and subsequent incisional hernia who presented to the hospital for elective repair of his incisional hernia. 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 Post, pt at risk for bleeding with lovenox bridge. Was given DVT prophylaxis with 5000 units heparin SQ q8h. Will d/c on coumadin w/out lovenox bridge. Pt ambulatory and also has IVC filter in place. - prescription given for patient to recheck INR on Tuesday with results sent to Dr. Delacruz's office. Pt states he also has appt to check INR on Tuesday. - pt will discuss beginning a NOAC with PCP on d/c - possibly eliquis Constipation - miralax prn CAD/Dyslipidemia - continue statin BPH - continue tamsulosin Thank you for the consult. Resident Physician Supervision Note: Discussed with the resident physician. The patient left today before I could see him, but I had discussed the plan with both the patient and Dr. Post yesterday. Please see my note from yesterday. Documented By: Eric Mccormack Resident Tracking Resident Involvement: Resident Care Provided Care Provided: [facility] Medicine
--- NOTE | 2017-10-27 07:10 | DISCHARGE SUMMARY ---
PRINCIPAL DIAGNOSIS: Incisional hernia. PROCEDURES: The patient underwent laparoscopic incisional hernia repair. OTHER DIAGNOSES: Deep venous thrombosis, pulmonary embolism, chronic anticoagulation. HISTORY OF PRESENT ILLNESS: The patient is a 77-year-old male who was brought into the hospital electively on 10/24/2017 to undergo laparoscopic incisional hernia repair which he tolerated quite well. He had been on chronic warfarin therapy which was stopped and then restarted postoperatively. He was also on subcutaneous heparin. He did progress quite well and was felt stable for discharge home on 10/26/2017, to be followed in the surgical clinic within 1 week.
== END 2017-10-26 14:30 | disposition home or self-care (01) | DRG 355 ==
LOC: C.ACU 05:12 → C.MSN 07:00 → ENRESERV 09:02
PROVIDERS: ADMIT Surgery; ATTEND Surgery
PROC: 0WUF4JZ Supplement Abdominal Wall with Synthetic Substitute, Percutaneous Endoscopic Approach (ICD-10-PCS; principal; 2017-10-24 07:00)
DX: K43.2 Incisional hernia without obstruction or gangrene (principal); K66.0 Peritoneal adhesions (postprocedural) (postinfection); I10 Essential (primary) hypertension; I25.10 Atherosclerotic heart disease of native coronary artery without angina pectoris; E78.5 Hyperlipidemia, unspecified; Z79.82 Long term (current) use of aspirin; Z79.01 Long term (current) use of anticoagulants; Z86.718 Personal history of other venous thrombosis and embolism; Z86.711 Personal history of pulmonary embolism; Z88.5 Allergy status to narcotic agent

== ENCOUNTER → 2017-10-28 | Outpatient (CLI) | payer BC ==
[~2017-10-28] MED LIST changes: +CEPH500C2 PO; +HYDR-5688 PO
== END | disposition home or self-care (01) ==
LOC: C.LAB1850 11:31
PROVIDERS: ATTEND Internal Medicine
DX: E78.5 Hyperlipidemia, unspecified (principal); Z86.711 Personal history of pulmonary embolism; Z86.718 Personal history of other venous thrombosis and embolism

== ENCOUNTER 2019-08-12 07:13 | Inpatient (IN) ==
[2019-08-12] MEDS ORDERED: SODIUM CHLORIDE 0.9% 250 ML IV PRN (07:22)
[2019-08-12] MEDS ORDERED: SODIUM CHLORIDE 0.9% 500 ML IV SCH (07:30)
[2019-08-12 07:53] LABS: Basophils # (auto) 0.04 K/uL (0-0.2); Basophils % (auto) 0.3 %; Eosinophils # (auto) 0.24 K/uL (0-0.5); Eosinophils % (auto) 1.9 %; Hematocrit (blood only) 25.5 % (42-52); Hemoglobin 8.1 g/dL (14.0-18.0); Immature Granulocytes # (auto) 0.49 K/uL (0.00-0.02); Immature Granulocytes % (auto) 3.8 %; Lymphocytes # (auto) 1.54 K/uL (1.2-3.4); Lymphocytes % (auto) 11.9 %; Mean Corpuscular Hemoglobin 30.9 pg (25-34); Mean Corpuscular Hgb Conc 31.8 g/dL (32-36); Mean Corpuscular Volume 97.3 fL (80-100); Mean Platelet Volume 9.7 fL (7.4-10.4); Monocytes # (auto) 0.56 K/uL (0.11-0.59); Monocytes % (auto) 4.3 %; Neutrophils # (auto) 10.05 K/uL (1.4-6.5); Neutrophils % (auto) 77.8 %; Platelet Count 397 K/uL (130-400); RDW Coefficient of Variation 13.8 % (11.5-14.5); RDW Standard Deviation 48.8 fL (36.4-46.3); Red Blood Count 2.62 M/uL (4.7-6.1); White Blood Count 12.92 K/uL (4.8-10.8)
[2019-08-12 07:57] LABS: iSTAT Hemoglobin 7.5 g/dl (14.0-18.0); iSTAT Ionized Calcium 1.09 mmol/l (1.12-1.32); iSTAT Potassium 4.6 mEq/L (3.3-5.0)
[2019-08-12] MEDS ORDERED: PROTHROMBIN COMP CONC- KCENTRA 3,000 UNITS in SYRINGE 0 ML IV STA (08:01)
[2019-08-12] MEDS ORDERED: DC ALL ANTICOAGULANTS ONE (08:01)
[2019-08-12] MEDS ORDERED: PHYTONADIONE 10 MG in SODIUM CHLORIDE 0.9% 50 ML IV ONE (08:01)
--- NOTE | 2019-08-12 08:06 | XRay Report ---
XR chest 1V portable CLINICAL HISTORY: 78 years-old Male presenting with weakness. TECHNIQUE: Portable upright AP view of the chest was obtained. COMPARISON: None. FINDINGS: Cardiomediastinal silhouette normal. No focal opacity. No large effusion or pneumothorax. Degenerativ e changes of the thoracic spine. Cholecystectomy clips noted. Partially visualized catheter in the up per abdomen. IMPRESSION: 1. No acute cardiopulmonary disease. Electronically signed by: Duran Hernandez M.D. 08/12/2019 8:03 AM
[2019-08-12 08:10] LABS: Albumin Level 1.9 gm/dl (3.4-5.0); BUN Creatinine Ratio 32.8 (10-20); Calcium 7.4 mg/dl (8.5-10.1); Creatinine Clr Calc Pharmacy 61.8 ml/min; Est GFR (African American) 82.6; Est GFR (Non-African American) 71.3; Magnesium 1.7 mg/dl (1.8-2.4); Potassium 4.6 mmol/L (3.5-5.1)
[2019-08-12] MEDS ORDERED: KCENTRA IV STA (08:11)
[2019-08-12 08:15] LABS: Prothrombin Time 36.2 Seconds (9.0-12.0)
[2019-08-12 08:21] LABS: Albumin Globulin Ratio 0.8 (0.9-2); Bilirubin,Total 0.4 mg/dl (0.2-1); Globulin 2.3 gm/dl (2.5-4.0); Thyroid Stimulating Hormone 4.46 uIu/ml (0.300-4.500); Total Protein 4.2 gm/dl (6.4-8.2); Troponin I 0.023 ng/ml (0-0.045)
[2019-08-12 08:29] LABS: INR 3.9 (0.9-1.1)
--- NOTE | 2019-08-12 08:47 | Emergency Department Note ---
Entered by Jyoti Woodson acting as a scribe for History of Present Illness General Chief complaint: Hypotension Time Seen by Provider: 08/12/19 07:21 Source: patient, family () and EMS Mode of arrival: EMS History of Present Illness Onset (ago): hour(s) (5.25) Location: head Pain Consistency: + other (episode) Quality: + other (hypotension) Associated symptoms: + denies other symptoms (abdominal pain, shortness of breath) and + other (nausea, weakness, semi loss of consciousness, pallor, diaphoresis, falls) The patient is a 78 year old male that is presenting to the Emergency Room with complaints of an episode of hypotension that started around 0200 this morning. The patient arrived to the ED via EMS and is minimally responsive. EMS reports that the patient woke up around 0200 and did not feel well. EMS states that the patient tried to get up just shortly prior to their arrival and collapsed on the floor. EMS notes that the patient was found to have a blood pressure of 70/40 on their arrival but it improved to 86 systolic just prior to arrival. 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 EMS notes that the patient still has drains in place in his abdomen. EMS reports that the incision appears clean and healing well. EMS notes that the patient was pale and diaphoretic when they arrived. The patients reports that the patient sat up to go to the bathroom this morning and fell backwards into the bed. His states that the patient tried to get up again and slid down onto the floor, landing in an unnatural position. His reports that the patient could not stand up or lie down and appeared to be semi-conscious at that time. His notes that the patient complained of nausea prior to getting out of bed. His reports that the patients recovery has been going well but notes that the drains are still producing a significant amount of fluid. His states that the patient has not been seen by anyone since being discharged from the hospital 6 days ago. His notes that the patient received a shot of Lovenox yesterday and takes Coumadin daily. His states that the patient has an IVC filter in place due to a history of blood clots. His notes that the patient appeared slightly paler than his baseline yesterday. The patient denies any abdominal pain or shortness of breath. HPI and ROS are limited secondary to the patient's limited responsiveness. Home Medications Home Medications Medication Instructions Recorded Confirmed Type aspirin 81 mg tablet,delayed 81 mg PO DAILY tab 04/18/19 08/12/19 History release cetirizine 10 mg tablet 10 mg PO DAILY tab 04/18/19 08/12/19 History warfarin 2.5 mg tablet 2.5 - 5 mg PO UD tab 04/18/19 08/12/19 History multivitamin 1 tab PO DAILY 04/19/19 08/12/19 History nitroglycerin 0.4 mg sublingual 0.4 mg SL Q5M PRN 04/19/19 08/12/19 History tablet magnesium oxide 420 mg tablet 250 mg PO DAILY tab 07/05/19 08/12/19 History Antibiotic Medication 0 mg PO UNKNOWN 08/12/19 08/12/19 History acetaminophen [Pain Relief Extra 1,000 mg PO Q8 PRN 08/12/19 08/12/19 History Strength] atorvastatin [Lipitor] 40 mg PO HS 08/12/19 08/12/19 History celecoxib [Celebrex] 100 mg PO DAILY 08/12/19 08/12/19 History dutasteride [Avodart] 0.5 mg PO DAILY 08/12/19 08/12/19 History tamsulosin [Flomax] 0.4 mg PO HS 08/12/19 08/12/19 History Allergies Allergy/AdvReac Type Severity Reaction Status Date / Time morphine AdvReac Mild nausea Verified 08/12/19 08:40 Past Med/Surg History Medical History Abdominal pain (Acute 02/18/14) Acute diverticulitis (Resolved) Bradycardia (Inactive 09/06/14) Colon cancer (Resolved) Elevated PSA (Acute) Enlarged prostate with lower urinary tract symptoms (LUTS) (Acute) Hernia (Chronic) Incisional hernia Inguinal hernia Left inguinal hernia (Acute) Pancreatic lesion (Inactive 04/24/14) Pancreatitis (Resolved) Pulmonary embolism (Acute) Small bowel obstruction (Acute) Surgical History H/O left inguinal hernia repair (Acute) S/P appendectomy (Resolved) S/P cholecystectomy (Resolved) S/P colon resection (Resolved) Family History Other Family history non-contributory Social History Preferred Language: [place] Communication Ability: Effective Crop Picker Required: No Beliefs That Will Affect Care: None marital status: Current Living Situation: Spouse current occupational status: retired Other Information That Helps Us Care for You: No Feels Safe at Home: Yes Safety Concerns: Feels Safe At This Time Smoking Status: Former smoker Do You Dip or Chew Tobacco: No ; Smoking End Date: 1984 ; Second Hand Exposure: No ; Tobacco Cessation Education Requested by Patient: No Hx Alcohol Use: No Hx Substance Use: No Review of Systems HPI and ROS are limited secondary to the patient's limited responsiveness. Physical Exam Vital Signs Vital Signs - 24 hr 08/12/19 07:17 08/12/19 07:19 08/12/19 07:20 Temperature Temperature Source Pulse Rate 74 78 70 Pulse Rate from SpO2 Sensor 69 Pulse Rhythm Pulse Strength Respiratory Rate Respiratory Effort / Characteristics Respiratory Depth Respiratory Pattern Blood Pressure 72/43 L Blood Pressure Mean 50 Blood Pressure Position Pulse Oximetry 93 91 94 Oxygen Delivery Method Sepsis Recent Fever Within 48 Hours Sepsis Action Taken by Nursing 08/12/19 07:23 08/12/19 07:30 08/12/19 07:38 Temperature Temperature Source Pulse Rate 63 63 Pulse Rate from SpO2 Sensor Pulse Rhythm Regular Pulse Strength Normal Respiratory Rate 24 Respiratory Effort / Characteristics Non-Labored Spontaneous Respiratory Depth Normal Respiratory Pattern Regular Blood Pressure 74/44 L Blood Pressure Mean 54 Blood Pressure Position Lying Pulse Oximetry 98 Oxygen Delivery Method Room Air Room Air Sepsis Recent Fever Within 48 Hours No Sepsis Action Taken by Nursing No Action Required 08/12/19 07:40 08/12/19 07:42 08/12/19 07:45 Temperature Temperature Source Pulse Rate 62 65 64 Pulse Rate from SpO2 Sensor Pulse Rhythm Pulse Strength Respiratory Rate Respiratory Effort / Characteristics Respiratory Depth Respiratory Pattern Blood Pressure 86/48 L 90/56 L Blood Pressure Mean 66 69 Blood Pressure Position Pulse Oximetry Oxygen Delivery Method Sepsis Recent Fever Within 48 Hours Sepsis Action Taken by Nursing 08/12/19 07:50 08/12/19 07:55 08/12/19 08:00 Temperature Temperature Source Pulse Rate 65 65 64 Pulse Rate from SpO2 Sensor Pulse Rhythm Pulse Strength Respiratory Rate Respiratory Effort / Characteristics Respiratory Depth Respiratory Pattern Blood Pressure 87/60 L 92/51 L 90/53 L Blood Pressure Mean 73 57 62 Blood Pressure Position Pulse Oximetry 100 100 Oxygen Delivery Method Sepsis Recent Fever Within 48 Hours Sepsis Action Taken by Nursing 08/12/19 08:05 08/12/19 08:10 08/12/19 08:15 Temperature 36.2 C L Temperature Source Rectal Pulse Rate 78 66 69 Pulse Rate from SpO2 Sensor Pulse Rhythm Pulse Strength Respiratory Rate 22 Respiratory Effort / Characteristics Respiratory Depth Respiratory Pattern Blood Pressure 70/46 L 93/61 L 82/51 L Blood Pressure Mean 54 66 61 Blood Pressure Position Pulse Oximetry 92 Oxygen Delivery Method Sepsis Recent Fever Within 48 Hours Sepsis Action Taken by Nursing 08/12/19 08:20 08/12/19 08:25 08/12/19 08:30 Temperature 36.4 C L Temperature Source Oral Pulse Rate 64 65 58 L Pulse Rate from SpO2 Sensor Pulse Rhythm Pulse Strength Respiratory Rate 15 16 13 Respiratory Effort / Characteristics Respiratory Depth Respiratory Pattern Blood Pressure 85/54 L 90/54 L 95/50 L Blood Pressure Mean 62 63 55 Blood Pressure Position Pulse Oximetry 96 100 100 Oxygen Delivery Method Sepsis Recent Fever Within 48 Hours Sepsis Action Taken by Nursing 08/12/19 08:35 08/12/19 08:40 08/12/19 08:45 Temperature Temperature Source Pulse Rate 59 L 63 57 L Pulse Rate from SpO2 Sensor 57 L Pulse Rhythm Pulse Strength Respiratory Rate 10 L 16 14 Respiratory Effort / Characteristics Respiratory Depth Respiratory Pattern Blood Pressure 87/56 L 96/59 L 96/60 L Blood Pressure Mean 70 71 70 Blood Pressure Position Pulse Oximetry 100 94 100 Oxygen Delivery Method Sepsis Recent Fever Within 48 Hours Sepsis Action Taken by Nursing 08/12/19 08:50 08/12/19 08:55 08/12/19 09:00 Temperature Temperature Source Pulse Rate 57 L 52 L 52 L Pulse Rate from SpO2 Sensor 55 L 53 L 51 L Pulse Rhythm Pulse Strength Respiratory Rate 13 17 10 L Respiratory Effort / Characteristics Respiratory Depth Respiratory Pattern Blood Pressure 100/56 L 104/59 L 99/58 L Blood Pressure Mean 73 72 73 Blood Pressure Position Pulse Oximetry 100 100 Oxygen Delivery Method Sepsis Recent Fever Within 48 Hours Sepsis Action Taken by Nursing 08/12/19 09:05 08/12/19 09:10 08/12/19 09:15 Temperature Temperature Source Pulse Rate 52 L 56 L 48 L Pulse Rate from SpO2 Sensor 51 L 49 L 50 L Pulse Rhythm Pulse Strength Respiratory Rate 11 L 16 11 L Respiratory Effort / Characteristics Respiratory Depth Respiratory Pattern Blood Pressure 101/63 112/62 Blood Pressure Mean 73 78 Blood Pressure Position Pulse Oximetry Oxygen Delivery Method Sepsis Recent Fever Within 48 Hours Sepsis Action Taken by Nursing 08/12/19 09:20 08/12/19 09:37 08/12/19 09:44 Temperature Temperature Source Pulse Rate 54 L 55 L 56 L Pulse Rate from SpO2 Sensor 55 L 56 L Pulse Rhythm Pulse Strength Respiratory Rate 10 L 6 L 13 Respiratory Effort / Characteristics Respiratory Depth Respiratory Pattern Blood Pressure 93/60 L 111/61 Blood Pressure Mean 66 75 Blood Pressure Position Pulse Oximetry 100 Oxygen Delivery Method Room Air Sepsis Recent Fever Within 48 Hours Sepsis Action Taken by Nursing 08/12/19 09:45 08/12/19 10:00 08/12/19 10:15 Temperature Temperature Source Pulse Rate 53 L 57 L 52 L Pulse Rate from SpO2 Sensor 53 L 57 L 52 L Pulse Rhythm Pulse Strength Respiratory Rate 12 9 L 11 L Respiratory Effort / Characteristics Respiratory Depth Respiratory Pattern Blood Pressure 99/60 L 100/59 L 99/59 L Blood Pressure Mean 74 66 66 Blood Pressure Position Pulse Oximetry 100 100 100 Oxygen Delivery Method Room Air Room Air Sepsis Recent Fever Within 48 Hours Sepsis Action Taken by Nursing 08/12/19 10:30 Temperature Temperature Source Pulse Rate 61 Pulse Rate from SpO2 Sensor 61 Pulse Rhythm Pulse Strength Respiratory Rate 17 Respiratory Effort / Characteristics Respiratory Depth Respiratory Pattern Blood Pressure 111/62 Blood Pressure Mean 73 Blood Pressure Position Pulse Oximetry 100 Oxygen Delivery Method Sepsis Recent Fever Within 48 Hours Sepsis Action Taken by Nursing CONSTITUTIONAL/VITAL SIGNS: Reviewed / noted above. GENERAL: Non-toxic in appearance. INTEGUMENTARY: Pale. HEAD: Normocephalic. EYES: without scleral icterus or trauma. ENT/OROPHARYNX: clear and moist. LYMPHADENOPATHY/NECK: Is supple without lymphadenopathy or meningismus. RESPIRATORY: Lungs clear and equal. CARDIOVASCULAR: Regular rate and rhythm. GI/ABDOMEN: Soft and nontender. No organomegaly or pulsatile mass. No rebound or guarding. Normal bowel sounds. Two drains in abdomen draining a serosanguineous fluid. Some abdominal wall bruising. RECTAL: Dark blood coming from rectum with clots. EXTREMITIES: Warm and well perfused. BACK: No CVA tenderness. NEUROLOGICAL: Intact without focal deficits. PSYCHIATRIC: normal affect. MUSCULOSKELETAL: Normally developed with good muscle tone. Course Course 0714:The patient was evaluated in room B01. A complete history and physical examination was performed. 0830: Patient is receiving 2 units of blood without any complications at this time. His systolic BP is in the 90 range. 0833: I discussed the patients case with Dr. Duvall, [facility], who will evaluate the patient for further management and care. 0841: Upon reevaluation, the patient is resting comfortably. I discussed laboratory and radiographic results with the patient and his . They verbalized agreement of the treatment plan. The patient will be evaluated for further management and care. 0902: Upon evaluation of the patient, Dr. Duvall and Dr. Lassiter, [facility], recommend a CTA of the abdomen/pelvis. 0941: Patient has returned from CT scan at this time. Patient reports feeling asymptomatic after having received the 2 units of blood. His systolic BP is around 100. Administered Medications Ioversol (Optiray 320 125ml) 120 ml IV ONCE PRN PRN Reason: Interaction Checking Stop: 08/16/19 09:37 Last Admin: 08/12/19 09:39 Dose: 120 ml Documented by: [id number] Discontinued Medications Sodium Chloride (Nss) 500 mls @ 999 mls/hr IV .Q31M MAXIMINO Stop: 08/12/19 08:00 Last Infusion: 08/12/19 08:38 Dose: 0 mls/hr Documented by: [id number] Admin: 08/12/19 08:00 Dose: 999 mls/hr Documented by: [id number] Phytonadione 10 mg/ Sodium (Chloride) 51 mls @ 102 mls/hr IV ONE ONE Stop: 08/12/19 08:30 Last Infusion: 08/12/19 09:13 Dose: 0 mls/hr Documented by: [id number] Admin: 08/12/19 08:28 Dose: 102 mls/hr Documented by: [id number] Prothrombin Complex Concent ( (Human) 3,000 units/ Syringe) 120 mls @ 10 mls/min IV NOW STA; Protocol Stop: 08/12/19 08:02 Last Admin: 08/12/19 09:12 Dose: Not Given Documented by: [id number] Prothrombin Complex Concent ( (Human) 3,000 units/ Syringe) 120 mls @ 10 mls/min IV NOW STA; Protocol Stop: 08/12/19 08:22 Last Admin: 08/12/19 09:12 Dose: 10 mls/min Documented by: [id number] Miscellaneous Information (Dc All Anticoagulants) 1 ea N/A NOW ONE Stop: 08/12/19 08:02 Last Admin: 08/12/19 09:12 Dose: 1 ea Documented by: [id number] Critical Care Time Critical Care Time: Yes Total Critical Care Time: 40 I have personally spent 40 minutes of critical care time in the direct management of this patient. This includes bedside care, interpretation of diagnostic studies, and testing, discussion with consultants, patient, and family members, and other required patient management activities. This 40 minutes is in excess of all separately billable procedures. Medical Decision Making Differential Diagnosis Differential includes acute coronary syndrome, myocardial infarction, CVA, TIA, anemia, infection, pneumonia, UTI, pyelonephritis, poor nutrition, dehydration, electrolyte disturbance,hypoglycemia. Medical Records Attestation: I reviewed the patient's medical records. Home Medications Current Medication List: was personally reviewed by me Laboratory Data Attestation: I reviewed the patient's lab results. Result diagrams: 08/12/19 07:41 08/12/19 07:41 Lab Results 08/12/19 08/12/19 08/12/19 Range/Units 07:38 07:41 07:41 WBC (4.8-10.8) K/uL RBC (4.7-6.1) M/uL Hgb (14.0-18.0) g/dL POC Hgb 7.5 L (14.0-18.0) g/dl Hct (42-52) % POC Hct 22 L (42-52) % MCV (80-100) fL MCH (25-34) pg MCHC (32-36) g/dL RDW Std Deviation (36.4-46.3) fL RDW Coeff of Carlie (11.5-14.5) % Plt Count (130-400) K/uL MPV (7.4-10.4) fL Immature Gran % (Auto) % Neut % (Auto) % Lymph % (Auto) % [place] % (Auto) % Eos % (Auto) % Baso % (Auto) % Immature Gran # (Auto) (0.00-0.02) K/uL Neut # (Auto) (1.4-6.5) K/uL Lymph # (Auto) (1.2-3.4) K/uL [place] # (Auto) (0.11-0.59) K/uL Eos # (Auto) (0-0.5) K/uL Baso # (Auto) (0-0.2) K/uL PT 36.2 H (9.0-12.0) Seconds INR 3.9 H (0.9-1.1) Fibrinogen (184-400) mg/dl Heparin Anti-Xa, LM Wt (< 0.10) IU/ML POC Sodium 139 (135-144) mEq/L Sodium (136-145) mmol/L POC Potassium 4.6 (3.3-5.0) mEq/L Potassium (3.5-5.1) mmol/L POC Chloride 106 (101-112) mEq/L Chloride (98-107) mmol/L Carbon Dioxide (21-32) mmol/L POC Total CO2 23 L (24-31) mEq/l Anion Gap (3-11) POC Anion Gap 15.0 L (16-25) mmol/L POC BUN 27 H (7-18) mg/dl BUN (7-18) mg/dl Creatinine (0.6-1.4) mg/dl POC Creatinine 1.0 (0.6-1.3) mg/dl Est Cr Clr Drug Dosing ml/min Est GFR ( Amer) Est GFR (Non-Af Amer) BUN/Creatinine Ratio (10-20) Glucose (70-99) mg/dl POC Glucose (other) 210 H (70-99) mg/dl Calcium (8.5-10.1) mg/dl POC Ioniz Calcium Uri 1.09 L (1.12-1.32) mmol/l Magnesium (1.8-2.4) mg/dl Total Bilirubin (0.2-1) mg/dl AST (15-37) U/L ALT (12-78) U/L Alkaline Phosphatase (45-117) U/L Total Creatine Kinase (39-308) U/L Troponin I (0-0.045) ng/ml Total Protein (6.4-8.2) gm/dl Albumin (3.4-5.0) gm/dl Globulin (2.5-4.0) gm/dl Albumin/Globulin Ratio (0.9-2) TSH (0.300-4.500) uIu/ml Blood Type A Positive Antibody Screen NEGATIVE Crossmatch See Detail 08/12/19 08/12/19 08/12/19 Range/Units 07:41 07:41 07:41 WBC 12.92 H (4.8-10.8) K/uL RBC 2.62 L (4.7-6.1) M/uL Hgb 8.1 L (14.0-18.0) g/dL POC Hgb (14.0-18.0) g/dl Hct 25.5 L (42-52) % POC Hct (42-52) % MCV 97.3 (80-100) fL MCH 30.9 (25-34) pg MCHC 31.8 L (32-36) g/dL RDW Std Deviation 48.8 H (36.4-46.3) fL RDW Coeff of Carlie 13.8 (11.5-14.5) % Plt Count 397 (130-400) K/uL MPV 9.7 (7.4-10.4) fL Immature Gran % (Auto) 3.8 % Neut % (Auto) 77.8 % Lymph % (Auto) 11.9 % [place] % (Auto) 4.3 % Eos % (Auto) 1.9 % Baso % (Auto) 0.3 % Immature Gran # (Auto) 0.49 H (0.00-0.02) K/uL Neut # (Auto) 10.05 H (1.4-6.5) K/uL Lymph # (Auto) 1.54 (1.2-3.4) K/uL [place] # (Auto) 0.56 (0.11-0.59) K/uL Eos # (Auto) 0.24 (0-0.5) K/uL Baso # (Auto) 0.04 (0-0.2) K/uL PT (9.0-12.0) Seconds INR (0.9-1.1) Fibrinogen 260 (184-400) mg/dl Heparin Anti-Xa, LM Wt < 0.10 (< 0.10) IU/ML POC Sodium (135-144) mEq/L Sodium 142 (136-145) mmol/L POC Potassium (3.3-5.0) mEq/L Potassium 4.6 (3.5-5.1) mmol/L POC Chloride (101-112) mEq/L Chloride 111 H (98-107) mmol/L Carbon Dioxide 25 (21-32) mmol/L POC Total CO2 (24-31) mEq/l Anion Gap 6.0 (3-11) POC Anion Gap (16-25) mmol/L POC BUN (7-18) mg/dl BUN 33 H (7-18) mg/dl Creatinine 1.00 (0.6-1.4) mg/dl POC Creatinine (0.6-1.3) mg/dl Est Cr Clr Drug Dosing 61.8 ml/min Est GFR ( Amer) 82.6 Est GFR (Non-Af Amer) 71.3 BUN/Creatinine Ratio 32.8 H (10-20) Glucose 222 H (70-99) mg/dl POC Glucose (other) (70-99) mg/dl Calcium 7.4 L (8.5-10.1) mg/dl POC Ioniz Calcium Uri (1.12-1.32) mmol/l Magnesium 1.7 L (1.8-2.4) mg/dl Total Bilirubin 0.4 (0.2-1) mg/dl AST 32 (15-37) U/L ALT 40 (12-78) U/L Alkaline Phosphatase 84 (45-117) U/L Total Creatine Kinase 29 L (39-308) U/L Troponin I 0.023 (0-0.045) ng/ml Total Protein 4.2 L (6.4-8.2) gm/dl Albumin 1.9 L (3.4-5.0) gm/dl Globulin 2.3 L (2.5-4.0) gm/dl Albumin/Globulin Ratio 0.8 L (0.9-2) TSH 4.460 (0.300-4.500) uIu/ml Blood Type Antibody Screen Crossmatch Imaging Data Radiologist's Impression: Radiology results as stated below per my review and the radiologist's interpretation: XR chest 1V portable CLINICAL HISTORY: 78 years-old Male presenting with weakness. TECHNIQUE: Portable upright AP view of the chest was obtained. COMPARISON: None. FINDINGS: Cardiomediastinal silhouette normal. No focal opacity. No large effusion or pneumothorax. Degenerative changes of the thoracic spine. Cholecystectomy clips noted. Partially visualized catheter in the upper abdomen. IMPRESSION: 1. No acute cardiopulmonary disease. Electronically signed by: Duran Hernandez M.D. 08/12/2019 8:[address] angio abdomen pelvis w con CLINICAL HISTORY: 78 years-old Male presenting with gi bleed, recent whipple, hypotension. TECHNIQUE: Multidetector CT angiography of the abdomen and pelvis was performed after the administration of intravenous contrast. 3-D volumetric and/or maximum intensity projection (MIP) images were subsequently reconstructed for review. IV contrast: 120 mL of Optiray 320. One or more dose lowering techniques were used consistent with the principles of ALARA (as low as reasonably achievable), including automatic exposure control, mA or kV adjustment to individual patient size, and/or use of iterative reconstruction. Stenosis measurements were based on NASCET-like criteria (distal lumen diameter as the denominator for stenosis measurement). COMPARISON: 10/13/2017. CT DOSE (mGy.cm): The estimated cumulative dose is 756.18 mGy.cm. FINDINGS: Furniture Fabricator topogram: Cholecystectomy clips, IVC filter, and 2 surgical drains in the epigastrium. Vasculature: Atherosclerosis of the normal caliber abdominal aorta. Mild tortuosity of aorta. Calcified atherosclerotic plaque is noted at the origins of the celiac and superior mesenteric arteries though there is no significant stenosis resulting. Atherosclerosis at the origin of the right renal artery results in less than 25% stenosis. No stenosis at the origin of the left renal artery. Bilateral common iliac arteries patent. A short segment dissection or web is noted in the right external iliac artery better visualized on this exam in comparison to prior due to the phase of contrast. No resulting stenosis. Remainder of the iliac arteries as well as the bilateral femora arteries patent. IVC filter in place within the infrarenal IVC. IVC is not yet opacified due to the phase of contrast. Remaining abdomen and pelvis: Lung bases: Multichamber enlargement of the heart. Coronary artery calcification. No pericardial or pleural effusion. Minimal dependent changes likely atelectasis. Liver: Normal morphology. No liver lesion allowing for the early arterial phase of contrast. Accessory left hepatic artery arising from the left gastric artery. Replaced right hepatic artery arising from the superior mesenteric artery. Biliary: Postsurgical changes of hepaticojejunostomy. Gallbladder surgically absent. Pancreas: Postsurgical changes of Whipple procedure with resection of the pancreatic head. The pancreaticojejunostomy is poorly delineated. Spleen: Normal. Adrenal glands: Normal. Kidneys and ureters: Normal. No hydronephrosis. Bladder: Normal. Pelvic organs: Prostate enlargement likely secondary to benign prostatic hyperplasia. Bowel: Postsurgical changes of ileocecectomy with a patent ileocolic anastomosis in the right mid abdomen. Postsurgical changes of Whipple procedure are somewhat poorly delineated due to the phase of intravenous contrast and lack of oral contrast. Grossly normal appearing antecolic gastrojejunostomy evident. Hyperattenuating intraluminal contents are suggested within small bowel of the left lower quadrant versus collapsed bowel with wall enhancement. Peritoneal cavity: No free fluid or intraperitoneal gas. 2 right mid abdominal surgical drains in place one terminating in the retroperitoneum and one terminating in the region of the lesser sac. Lymph nodes: No enlarged lymph nodes in the abdomen or pelvis. Abdominal wall: Postsurgical changes of the ventral abdominal wall. Repair of the prior left mid abdominal ventral hernia. Prosthetic mesh is likely in place. Musculoskeletal: Degenerative changes of the spine. IMPRESSION: 1. Postsurgical changes of Whipple procedure. This is not optimally depicted given the phase of intravenous contrast and lack of oral contrast. No gross complication is apparent. 2. Atherosclerosis of the abdominal aorta without evidence of aneurysm, occlusion, or hemodynamically significant stenosis. 3. 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 This is of doubtful clinical significance. 4. Either hyperattenuating intraluminal contents versus collapsed small bowel in the left lower quadrant. This could represent a site of gastrointestinal hemorrhage or an appearance related to underdistention. No other sites of potential gastrointestinal hemorrhage is evident. Electronically signed by: Duran Hernandez M.D. 08/12/2019 9:54 AM ECG Data Attestation: I personally reviewed and interpreted this ECG as follows: Indication: + weakness Rate (beats per minute): 74 Rhythm: + normal sinus ECG ST segments: no ST depression and no ST elevation ECG Findings: no PACs and no PVCs Blood Pressure Blood Pressure Findings: Low blood pressure MDM Narrative This is a 78-year-old male who presents to the ED with a chief complaint of a syncopal episode. The patient had a Whipple procedure on 08 01 at [facility] by Dr. Ruiz. He was discharged 6 days ago. He was receiving Lovenox and Coumadin after discharge following the procedure because of history of PE. The patient does have a IVC filter according to the . The patient this morning felt tired. He was getting up to go to the bathroom and he fell back onto the bed. He then slid to the floor. He did not strike his head. The patient came in by EMS. The states that he was unresponsive for short period of time. His initial blood pressure was 70/40 by EMS. He does have a couple of abdominal kaden drains in place that are draining a mostly serous but slightly sanguinous fluid. The patient's states that his last dose of Lovenox was yesterday and he is on Coumadin. His i-STAT INR was 4.1. The patient's initial hemogl obin was 7.4. The patient was hypotensive on his initial evaluation here. On his exam, he does have some postsurgical bruising on the abdomen. The KADEN drains are in place as above. There is gross dark rectal blood and clots in the patient's underwear and from his rectum. He denies any chest pains or shortness of breath. Denies any headaches. He just reports weakness. His lab hemoglobin came back at 8.1. His INR came back at 3.9. Glucose is 222. Calcium was 7.4. Magnesium is 1.7. Troponin was negative. Chest x-ray was negative for acute disease. The patient was given a 500 cc normal saline bolus upon his initial evaluation as he was hypotensive. He was typed and crossed but 2 units of uncrossed O+ blood was administered because of his hypotension and instability. The patient was given IV vitamin K. He was also given IV Kcentra. The patient did have improvement of his vital signs with this. His blood pressure is in the high 90s. I spoke with the hospitalist, who will see the patient for further evaluation and care. The patient will need to go to the intensive care unit. The disc jockey will be notified as well. The patient does have 2 large-bore IVs in place. A CT scan of the abdomen pelvis was requested by the admission service. There was no acute concerning abnormalities on the CT scan requiring transfer. Impression & Plan GI bleed, Hemorrhagic shock, Elevated INR, Anemia Discharge Plan Visit Data Chief Complaint: Hypotension ED Provider: Clayton Eli Discharge Problem: GI bleed, Hemorrhagic shock, Elevated INR, Anemia Patient Disposition: Being Evaluated by Hospitalist Forms Stand Alone Forms: My [facility] Prescriptions Prescriptions: No Action aspirin 81 mg tablet,delayed release (DR/EC) 81 mg PO DAILY RF: 0 warfarin [Coumadin] 2.5 mg tablet 2.5 - 5 mg PO UD RF: 0 cetirizine [Zyrtec] 10 mg tablet 10 mg PO DAILY RF: 0 multivitamin [Multiple Vitamins] tablet 1 tab PO DAILY RF: 0 nitroglycerin [Nitrostat] 0.4 mg tablet, sublingual 0.4 mg SL Q5M PRN (Reason: Chest Pain) RF: 0 magnesium oxide 420 mg tablet 250 mg PO DAILY RF: 0 Antibiotic Medication 0 mg PO UNKNOWN RF: 0 acetaminophen [Pain Relief Extra Strength] 500 mg tablet 1,000 mg PO Q8 PRN (Reason: Pain) RF: 0 atorvastatin [Lipitor] 40 mg tablet 40 mg PO HS RF: 0 tamsulosin [Flomax] 0.4 mg capsule 0.4 mg PO HS RF: 0 celecoxib [Celebrex] 100 mg capsule 100 mg PO DAILY RF: 0 dutasteride [Avodart] 0.5 mg capsule 0.5 mg PO DAILY RF: 0 Referrals Referrals: Rishi Delacruz MD [Primary Care Provider] - Discharge Problem: GI bleed Qualifiers: GI bleed type/associated pathology: unspecified gastrointestinal hemorrhage type Qualified Code(s): K92.2 - Gastrointestinal hemorrhage, unspecified Anemia Qualifiers: Anemia type: unspecified type Qualified Code(s): D64.9 - Anemia, unspecified The scribe's documentation has been prepared under my direction and personally reviewed by me in its entirety. I confirm that the note above accurately reflects all work, treatment, procedures, and medical decision making performed by me.
[2019-08-12 09:01] LABS: Fibrinogen 260 mg/dl (184-400)
[2019-08-12] MEDS ORDERED: OPTIRAY 320 125ml IV PRN (09:38)
--- NOTE | 2019-08-12 09:56 | CT Scan Report ---
CT angio abdomen pelvis w con CLINICAL HISTORY: 78 years-old Male presenting with gi bleed, recent whipple, hypotension. TECHNIQUE: Multidetector CT angiography of the abdomen and pelvis was performed after the administrat ion of intravenous contrast. 3-D volumetric and/or maximum intensity projection (MIP) images were sub sequently reconstructed for review. IV contrast: 120 mL of Optiray 320. One or more dose lowering kahlil hniques were used consistent with the principles of ALARA (as low as reasonably achievable), includin g automatic exposure control, mA or kV adjustment to individual patient size, and/or use of iterative reconstruction. Stenosis measurements were based on NASCET-like criteria (distal lumen diameter as t he denominator for stenosis measurement). COMPARISON: 10/13/2017. CT DOSE (mGy.cm): The estimated cumulative dose is 756.18 mGy.cm. FINDINGS: Glass Maker topogram: Cholecystectomy clips, IVC filter, and 2 surgical drains in the epigastrium. Vasculature: Atherosclerosis of the normal caliber abdominal aorta. Mild tortuosity of aorta. Calcified atheroscle rotic plaque is noted at the origins of the celiac and superior mesenteric arteries though there is n o significant stenosis resulting. Atherosclerosis at the origin of the right renal artery results in less than 25% stenosis. No stenosis at the origin of the left renal artery. Bilateral common iliac ar teries patent. A short segment dissection or web is noted in the right external iliac artery better v isualized on this exam in comparison to prior due to the phase of contrast. No resulting stenosis. Re mainder of the iliac arteries as well as the bilateral femora arteries patent. IVC filter in place within the infrarenal IVC. IVC is not yet opacified due to the phase of contrast. Remaining abdomen and pelvis: Lung bases: Multichamber enlargement of the heart. Coronary artery calcification. No pericardial or p leural effusion. Minimal dependent changes likely atelectasis. Liver: Normal morphology. No liver lesion allowing for the early arterial phase of contrast. Accessor y left hepatic artery arising from the left gastric artery. Replaced right hepatic artery arising fro m the superior mesenteric artery. Biliary: Postsurgical changes of hepaticojejunostomy. Gallbladder surgically absent. Pancreas: Postsurgical changes of Whipple procedure with resection of the pancreatic head. The pancre aticojejunostomy is poorly delineated. Spleen: Normal. Adrenal glands: Normal. Kidneys and ureters: Normal. No hydronephrosis. Bladder: Normal. Pelvic organs: Prostate enlargement likely secondary to benign prostatic hyperplasia. Bowel: Postsurgical changes of ileocecectomy with a patent ileocolic anastomosis in the right mid abd omen. Postsurgical changes of Whipple procedure are somewhat poorly delineated due to the phase of in travenous contrast and lack of oral contrast. Grossly normal appearing antecolic gastrojejunostomy ev ident. Hyperattenuating intraluminal contents are suggested within small bowel of the left lower quad rant versus collapsed bowel with wall enhancement. Peritoneal cavity: No free fluid or intraperitoneal gas. 2 right mid abdominal surgical drains in gerardo ce one terminating in the retroperitoneum and one terminating in the region of the lesser sac. Lymph nodes: No enlarged lymph nodes in the abdomen or pelvis. Abdominal wall: Postsurgical changes of the ventral abdominal wall. Repair of the prior left mid abdo reinier ventral hernia. Prosthetic mesh is likely in place. Musculoskeletal: Degenerative changes of the spine. IMPRESSION: 1. Postsurgical changes of Whipple procedure. This is not optimally depicted given the phase of intr avenous contrast and lack of oral contrast. No gross complication is apparent. 2. Atherosclerosis of the abdominal aorta without evidence of aneurysm, occlusion, or hemodynamicall y significant stenosis. 3. 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 This is of doubtful clinical significance. 4. Either hyperattenuating intraluminal contents versus collapsed small bowel in the left lower quad rant. This could represent a site of gastrointestinal hemorrhage or an appearance related to underdis tention. No other sites of potential gastrointestinal hemorrhage is evident. Electronically signed by: Duran Hernandez M.D. 08/12/2019 9:54 AM
[2019-08-12] MEDS ORDERED: ONDANSETRON INJ 2 MG/ML 2 ML VIAL IV PRN (11:59)
[2019-08-12] MEDS ORDERED: ACETAMINOPHEN 325 MG TAB PO PRN (11:59)
[2019-08-12] MEDS ORDERED: PANTOprazole 80 MG in DEXTROSE 5% 100 ML IV STA (12:24)
--- NOTE | 2019-08-12 12:33 | Critical Care Consultation ---
Date of Consultation August 12, 2019 Assessment & Plan (1) Admitted to intensive care unit: Assessment and Plan: - Acute blood loss anemia secondary to gastrointestinal bleed - Recent pancreatic surgery (Whipple) - History of DVT and anticoagulated with warfarin -Supratherapeutic INR Neurologic: No issues currently Pulmonary: No issues currently Cardiovascular: History of coronary artery disease with some mild chest pain in the emergency department which has resolved. Will obtain a delta troponin. Gastrointestinal: Likely lower GI bleed. Will consult GI. Start him on Protonix twice daily with a an 80 mg push now. CBC every 6 hours. We will follow-up on his INR given that he received Kcentra. Hold anticoagulation at this time. He did have a CTA of his abdomen which demonstrated postsurgical changes of the Whipple procedure. He had atherosclerosis of the abdominal aorta without evidence of aneurysm, occlusion or hemodynamically significant stenosis. There were a short segment dissection or web in the right external iliac artery of doubtful clinical significance. There is also either hyperattenuating intraluminal contents versus collapsed small bowel in the left lower quadrant. Radiology noted that this could represent a site of gastrointestinal hemorrhage or in appearance related to underdistention and that no other site of potential gastrointestinal hemorrhage was evident. We will await gastroenterology consult. He is hemodynamically stable at present. Renal: Monitor creatinine and urine output given the fact that he did have some element of shock on presentation and also received a contrast load. No issues is apparent however. Infectious disease: No issues Hematologic: GI bleed as above. CBC every 6. Follow-up on the INR post Kcentra. Endocrine: Hyperglycemia protocol per pharmacy F/E/N: Continued IV fluid hydration. N.p.o. for now. Lines and tubes: Peripheral IVs in place. VTE prophylaxis: SCD CODE STATUS: Full Family at bedside: None available at bedside Disposition: To remain in the ICU today I have personally spent 30 minutes of critical care time in the direct management of this patient. This is a life/limb threatening event. This includes time spent evaluating patient, direct bedside care, chart review, placing orders, interpretation of diagnostic studies, discussion with consultants, patient, and family members, as well as other required patient management activities. This time is exclusive of all separately billable procedures, and teaching time and separate from and in addition to any other critical care service time. Thank you for allowing us to participate in the care of this patient. (2) Acute blood loss anemia: (3) GI bleed: (4) Supratherapeutic INR: (5) History of pulmonary embolism: (6) History of coronary artery disease: History of Present Illness Reason for Consultation: GI bleed with acute blood loss anemia Requesting Physician: Dr. 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 Barton of [facility] who recently underwent a Whipple procedure approximately 12 days ago at [facility] and was discharged on Lovenox and Coumadin given a history of prior DVTs. Patient presented today with syncope and large amount of bleeding from his lower GI tract. Apparently around midnight he started having some dizziness and went back to sleep around 2 AM he had some more dizziness and then around 7 AM he was unresponsive and ambulance was called. He presented to the ER with a large amount of bright red blood in his rectum and all over his pants and underwear. He received 2 units of blood in the ER and received Kcentra to reverse the warfarin. He denies any pain currently. He has 2 KEYANA drains in the abdomen. He did have very mild chest pain that has resolved since receiving the blood. He does have a history of coronary artery disease and is on aspirin. 2 weeks ago he was taking Celebrex. In the ER he was initially hypotensive on presentation with blood pressures in the 70s over 40s with subsequent improvement after receiving fluids and blood. His hemoglobin today is 8.1 from a baseline of around 13. Platelet count is 397,000. INR was 3.9 on presentation. Creatinine was 1 on presentation. No lactate was drawn. Troponin was 0.023. In the ICU his blood pressure is currently 106/71. Heart rate 84. Respirations 18. He is afebrile. He is saturating 97% on room air. He is in no apparent distress currently. Allergies Allergy/AdvReac Type Severity Reaction Status Date / Time morphine AdvReac Mild nausea Verified 08/12/19 08:40 Home Medications Home Medications Medication Instructions Recorded Confirmed Type aspirin 81 mg tablet,delayed 81 mg PO DAILY tab 04/18/19 08/12/19 History release cetirizine 10 mg tablet 10 mg PO DAILY tab 04/18/19 08/12/19 History warfarin 2.5 mg tablet 2.5 - 5 mg PO UD tab 04/18/19 08/12/19 History multivitamin 1 tab PO DAILY 04/19/19 08/12/19 History nitroglycerin 0.4 mg sublingual 0.4 mg SL Q5M PRN 04/19/19 08/12/19 History tablet magnesium oxide 420 mg tablet 250 mg PO DAILY tab 07/05/19 08/12/19 History Antibiotic Medication 0 mg PO UNKNOWN 08/12/19 08/12/19 History acetaminophen [Pain Relief Extra 1,000 mg PO Q8 PRN 08/12/19 08/12/19 History Strength] atorvastatin [Lipitor] 40 mg PO HS 08/12/19 08/12/19 History celecoxib [Celebrex] 100 mg PO DAILY 08/12/19 08/12/19 History dutasteride [Avodart] 0.5 mg PO DAILY 08/12/19 08/12/19 History tamsulosin [Flomax] 0.4 mg PO HS 08/12/19 08/12/19 History Patient History Medical History Abdominal pain (Acute 02/18/14) Acute diverticulitis (Resolved) Bradycardia (Inactive 09/06/14) Colon cancer (Resolved) Elevated PSA (Acute) Enlarged prostate with lower urinary tract symptoms (LUTS) (Acute) Hernia (Chronic) Incisional hernia Inguinal hernia Left inguinal hernia (Acute) Pancreatic lesion (Inactive 04/24/14) Pancreatitis (Resolved) Pulmonary embolism (Acute) Small bowel obstruction (Acute) Surgical History H/O left inguinal hernia repair (Acute) S/P appendectomy (Resolved) S/P cholecystectomy (Resolved) S/P colon resection (Resolved) Family History Other Family history non-contributory Social History Preferred Language: Bangladeshi Communication Ability: Effective Prospecting Driller Helper Required: No Beliefs That Will Affect Care: None marital status: Current Living Situation: Spouse current occupational status: retired Other Information That Helps Us Care for You: No Feels Safe at Home: Yes Safety Concerns: Feels Safe At This Time Smoking Status: Former smoker Do You Dip or Chew Tobacco: No ; Smoking End Date: 1984 ; Second Hand Exposure: No ; Tobacco Cessation Education Requested by Patient: No Hx Alcohol Use: No Hx Substance Use: No Review of Systems Review of Systems: All systems reviewed & are unremarkable except as noted in HPI & below Physical Exam Constitutional: WD/WN, vitals as above Eyes: PERRL, conjunctivae normal, anicteric sclerae ENMT: external ear and nose normal, oropharynx normal Respiratory: normal respiratory effort, lungs clear to auscultation Cardiovascular: Rate/Rhythm: regular rate and regular rhythm 1+ pitting edema lower extremity Gastrointestinal (Abdomen): Mild tenderness to palpation. Good bowel sounds. Drains in place draining serosanguineous fluid. Musculoskeletal: no cyanosis or clubbing, extremities motor strength 5/5 Skin: no rashes, warm and dry Neurologic: PERRL, EOMI, accommodation nl, no face palsy, no dysarthria Psychiatric: A+Ox3, euthymic affect Results & Data Vital Signs (Past 12 Hours) Vital Signs Temp Pulse Resp BP Pulse Ox 08/12/19 11:15 84 18 106/71 97 08/12/19 11:00 90 18 114/70 98 08/12/19 10:45 61 19 98/64 L 99 08/12/19 10:30 61 17 111/62 100 08/12/19 10:15 52 L 11 L 99/59 L 100 08/12/19 10:00 57 L 9 L 100/59 L 100 08/12/19 09:45 53 L 12 99/60 L 100 08/12/19 09:44 56 L 13 111/61 100 08/12/19 09:37 55 L 6 L 08/12/19 09:20 54 L 10 L 93/60 L 08/12/19 09:15 48 L 11 L 112/62 08/12/19 09:10 56 L 16 08/12/19 09:05 52 L 11 L 101/63 08/12/19 09:00 52 L 10 L 99/58 L 08/12/19 08:55 52 L 17 104/59 L 100 08/12/19 08:50 57 L 13 100/56 L 100 08/12/19 08:45 57 L 14 96/60 L 100 08/12/19 08:40 63 16 96/59 L 94 08/12/19 08:35 59 L 10 L 87/56 L 100 08/12/19 08:30 97.5 F L 58 L 13 95/50 L 100 08/12/19 08:25 65 16 90/54 L 100 08/12/19 08:20 64 15 85/54 L 96 08/12/19 08:15 69 22 82/51 L 92 08/12/19 08:10 66 93/61 L 08/12/19 08:05 97.2 F L 78 70/46 L 08/12/19 08:00 64 90/53 L 100 08/12/19 07:55 65 92/51 L 100 08/12/19 07:50 65 87/60 L 08/12/19 07:45 64 90/56 L 08/12/19 07:42 65 86/48 L 08/12/19 07:40 62 08/12/19 07:30 63 08/12/19 07:23 63 24 74/44 L 98 08/12/19 07:20 70 94 08/12/19 07:19 78 91 08/12/19 07:17 74 72/43 L 93 I personally reviewed the patient's pertinent labs, imaging and EKG. I also reviewed the radiology reports. Coding Level of Care Code Critical Care 1st 30-74 mins Diagnoses Admitted to intensive care unit Z78.9 Acute blood loss anemia D62 GI bleed K92.2 GI bleed type/associated pathology: unspecified gastrointestinal hemorrhage type Supratherapeutic INR R79.1 History of pulmonary embolism Z86.711 History of coronary artery disease Z86.79 Time Spent (min) 30 (1) GI bleed GI bleed type/associated pathology: unspecified gastrointestinal hemorrhage type Qualified Code(s): K92.2 - Gastrointestinal hemorrhage, unspecified
[2019-08-12 13:04] LABS: Hematocrit (blood only) 33.1 % (42-52); Hemoglobin 10.9 g/dL (14.0-18.0); Mean Corpuscular Hemoglobin 30.8 pg (25-34); Mean Corpuscular Hgb Conc 32.9 g/dL (32-36); Mean Corpuscular Volume 93.5 fL (80-100); Mean Platelet Volume 9.8 fL (7.4-10.4); Platelet Count 343 K/uL (130-400); RDW Coefficient of Variation 16.5 % (11.5-14.5); RDW Standard Deviation 56.2 fL (36.4-46.3); Red Blood Count 3.54 M/uL (4.7-6.1); White Blood Count 17.98 K/uL (4.8-10.8)
[2019-08-12] MEDS: LACTATED RINGER'S 1,000 ML IV SCH ×2 (13:10→20:46)
[2019-08-12 13:17] LABS: INR 1.1 (0.9-1.1); Prothrombin Time 10.9 Seconds (9.0-12.0)
[2019-08-12 13:30] LABS: Albumin Level 2.2 gm/dl (3.4-5.0); Bilirubin Direct 0.3 mg/dl (0-0.2); Bilirubin,Total 1.4 mg/dl (0.2-1); Total Protein 4.8 gm/dl (6.4-8.2); Troponin I 0.321 ng/ml (0-0.045)
--- NOTE | 2019-08-12 17:02 | History & Physical Report ---
Date of Service August 12, 2019 Assessment & Plan (1) GI bleed: Due to "double anticoagulation" from his Lovenox and a supratherapeutic INR. - S/p reversal of INR with K-centra and vitamin K -> INR now 1.1 - Transfuse as needed - H&H Q6h - GI and surgery consulted (2) Hemorrhagic shock: BP initially 70/40 on presentation. - Improved s/p fluids and 2 units of PRBCs on 08/12 (3) Elevated INR: Likely due to poor PO intake while on warfarin. - Reversed as above (4) CAD (coronary artery disease): Bare metal stent in 2008. Troponin up to 0.3 in setting of severe GI bleed; likely demand ischemia. EKG without ST depressions or any TWIs. - Restart ASA, statin after bleeding has stopped - Trend troponins per ICU team (5) Pulmonary embolism: Unclear when this occurred, but clearly holding all anticoagulation in light of severe bleeding. - Get more information on Tuesday - Restart anticoagulation as able - SCDs at present for DVT prophylaxis History of Present Illness Primary Care Provider: Rishi Delacruz MD 78yo M w/ hx of pancreatic head mass s/p Whipple at [facility] who presents for lower GI bleed. Per , he was discharged on 08/06/2019. He was sent out on Lovenox with warfarin transition. Last injection was on 08/11. Overnight, he had an upset stomach and just didn't feel right. In the morning, he had several episodes of bright red blood per rectum. In the ED, his hgb was found to be 8 from a prior of 14. INR was 3.9. His blood pressure was 70/40. He was given fluids, K-centra, and 2 units of blood in the ED with improvement of his blood pressure. CTA of the abodomen and pelvis showed blood in the small intestine, but no surgical issues. Allergies Allergy/AdvReac Type Severity Reaction Status Date / Time morphine AdvReac Mild nausea Verified 08/12/19 08:40 Home Medications Home Medications Medication Instructions Recorded Confirmed Type aspirin 81 mg tablet,delayed 81 mg PO DAILY tab 04/18/19 08/12/19 History release cetirizine 10 mg tablet 10 mg PO DAILY tab 04/18/19 08/12/19 History warfarin 2.5 mg tablet 2.5 - 5 mg PO UD tab 04/18/19 08/12/19 History multivitamin 1 tab PO DAILY 04/19/19 08/12/19 History nitroglycerin 0.4 mg sublingual 0.4 mg SL Q5M PRN 04/19/19 08/12/19 History tablet magnesium oxide 420 mg tablet 250 mg PO DAILY tab 07/05/19 08/12/19 History Antibiotic Medication 0 mg PO UNKNOWN 08/12/19 08/12/19 History acetaminophen [Pain Relief Extra 1,000 mg PO Q8 PRN 08/12/19 08/12/19 History Strength] atorvastatin [Lipitor] 40 mg PO HS 08/12/19 08/12/19 History celecoxib [Celebrex] 100 mg PO DAILY 08/12/19 08/12/19 History dutasteride [Avodart] 0.5 mg PO DAILY 08/12/19 08/12/19 History tamsulosin [Flomax] 0.4 mg PO HS 08/12/19 08/12/19 History Past Med/Surg History Medical History (Updated 08/12/19 @ 16:56 by Mynor Duvall MD) Abdominal pain (Acute 02/18/14) Acute blood loss anemia Acute diverticulitis (Resolved) Admitted to intensive care unit Bradycardia (Inactive 09/06/14) Colon cancer (Resolved) Elevated PSA (Acute) Enlarged prostate with lower urinary tract symptoms (LUTS) (Acute) GI bleed Hernia (Chronic) History of coronary artery disease History of pulmonary embolism Incisional hernia Inguinal hernia Left inguinal hernia (Acute) Pancreatic lesion (Inactive 04/24/14) Pancreatitis (Resolved) Pulmonary embolism (Acute) Small bowel obstruction (Acute) Supratherapeutic INR Surgical History H/O left inguinal hernia repair (Acute) S/P appendectomy (Resolved) S/P cholecystectomy (Resolved) S/P colon resection (Resolved) Family History Other Family history non-contributory Social History Preferred Language: Samoan Communication Ability: Effective Director Of Safety And Security Required: No Beliefs That Will Affect Care: None marital status: Current Living Situation: Spouse current occupational status: retired Other Information That Helps Us Care for You: No Feels Safe at Home: Yes Safety Concerns: Feels Safe At This Time Smoking Status: Former smoker Do You Dip or Chew Tobacco: No ; Smoking End Date: 1984 ; Second Hand Exposure: No ; Tobacco Cessation Education Requested by Patient: No Hx Alcohol Use: No Hx Substance Use: No Review of Systems Review of Systems: Unobtainable due to reduced consciousness Physical Exam Constitutional: + acute distress and + ill appearing Eyes: EOM intact bilaterally; no conjunctival abnormality ENMT: external ear and nose normal, oropharynx normal Neck: trachea midline, no thyromegaly normal visual inspection Respiratory: normal respiratory effort, lungs clear to auscultation no respiratory distress Cardiovascular: RRR, no murmur, no edema Gastrointestinal (Abdomen): Inspection/Auscultation: abdomen normal to inspection; abdomen not distended Musculoskeletal: no cyanosis or clubbing, extremities motor strength 5/5 Skin: no rashes, warm and dry Neurologic: moves all extremities and awake Psychiatric: Orientation: alert, oriented to person and cooperative Results & Data Vital Signs (Past 12 Hours) Vital Signs Temp Pulse Resp BP Pulse Ox 08/12/19 16:00 70 08/12/19 13:43 65 12 103/55 L 100 08/12/19 12:43 82 26 H 103/71 98 08/12/19 12:33 89 19 108/79 99 08/12/19 12:00 90 08/12/19 11:43 36.5 C 85 21 108/79 98 08/12/19 11:15 84 18 106/71 97 08/12/19 11:00 90 18 114/70 98 08/12/19 10:45 61 19 98/64 L 99 08/12/19 10:30 61 17 111/62 100 08/12/19 10:15 52 L 11 L 99/59 L 100 08/12/19 10:00 57 L 9 L 100/59 L 100 08/12/19 09:45 53 L 12 99/60 L 100 08/12/19 09:44 56 L 13 111/61 100 08/12/19 09:37 55 L 6 L 08/12/19 09:20 54 L 10 L 93/60 L 08/12/19 09:15 48 L 11 L 112/62 08/12/19 09:10 56 L 16 08/12/19 09:05 52 L 11 L 101/63 08/12/19 09:00 52 L 10 L 99/58 L 08/12/19 08:55 52 L 17 104/59 L 100 08/12/19 08:50 57 L 13 100/56 L 100 08/12/19 08:45 57 L 14 96/60 L 100 08/12/19 08:40 63 16 96/59 L 94 08/12/19 08:35 59 L 10 L 87/56 L 100 08/12/19 08:30 36.4 C L 58 L 13 95/50 L 100 08/12/19 08:25 65 16 90/54 L 100 08/12/19 08:20 64 15 85/54 L 96 08/12/19 08:15 69 22 82/51 L 92 08/12/19 08:10 66 93/61 L 08/12/19 08:05 36.2 C L 78 70/46 L 08/12/19 08:00 64 90/53 L 100 08/12/19 07:55 65 92/51 L 100 08/12/19 07:50 65 87/60 L 08/12/19 07:45 64 90/56 L 08/12/19 07:42 65 86/48 L 08/12/19 07:40 62 08/12/19 07:30 63 08/12/19 07:23 63 24 74/44 L 98 08/12/19 07:20 70 94 08/12/19 07:19 78 91 08/12/19 07:17 74 72/43 L 93 Code Status & VTE Plan VTE Prophylaxis Plan VTE Prophylaxis will be ordered: Yes PG Care Time/CCT Total # of Minutes Spent Total Time Spent with Patient: Total time spent is greater than 50% in coordination of care (as documented) at patient's floor/unit and/or counseling patient: (1) GI bleed GI bleed type/associated pathology: unspecified gastrointestinal hemorrhage type Qualified Code(s): K92.2 - Gastrointestinal hemorrhage, unspecified
[2019-08-12 18:06] LABS: Hematocrit (blood only) 29.7 % (42-52); Hemoglobin 9.9 g/dL (14.0-18.0); Mean Corpuscular Hemoglobin 30.9 pg (25-34); Mean Corpuscular Hgb Conc 33.3 g/dL (32-36); Mean Corpuscular Volume 92.8 fL (80-100); Mean Platelet Volume 9.5 fL (7.4-10.4); Platelet Count 336 K/uL (130-400); RDW Coefficient of Variation 16.8 % (11.5-14.5); RDW Standard Deviation 56.7 fL (36.4-46.3); White Blood Count 15.67 K/uL (4.8-10.8)
[2019-08-12] MEDS: PANTOprazole 40 MG in SYRINGE 0 ML IV SCH (20:46)
[2019-08-12] MEDS ORDERED: ATORVASTATIN 40 MG TAB PO SCH (21:00)
[2019-08-12 23:58] LABS: Hematocrit (blood only) 27.3 % (42-52); Hemoglobin 9.1 g/dL (14.0-18.0); Mean Corpuscular Hemoglobin 30.8 pg (25-34); Mean Corpuscular Hgb Conc 33.3 g/dL (32-36); Mean Corpuscular Volume 92.5 fL (80-100); Mean Platelet Volume 9.4 fL (7.4-10.4); Platelet Count 318 K/uL (130-400); RDW Coefficient of Variation 16.6 % (11.5-14.5); RDW Standard Deviation 55.6 fL (36.4-46.3); Red Blood Count 2.95 M/uL (4.7-6.1); White Blood Count 18.73 K/uL (4.8-10.8)
[2019-08-13] MEDS: LACTATED RINGER'S 1,000 ML IV SCH ×2 (03:44→12:08)
[2019-08-13 06:05] LABS: Hematocrit (blood only) 27.2 % (42-52); Hemoglobin 9.2 g/dL (14.0-18.0); Mean Corpuscular Hemoglobin 31.1 pg (25-34); Mean Corpuscular Hgb Conc 33.8 g/dL (32-36); Mean Corpuscular Volume 91.9 fL (80-100); Mean Platelet Volume 9.7 fL (7.4-10.4); Platelet Count 319 K/uL (130-400); RDW Coefficient of Variation 16.4 % (11.5-14.5); RDW Standard Deviation 54.3 fL (36.4-46.3); Red Blood Count 2.96 M/uL (4.7-6.1); White Blood Count 18.68 K/uL (4.8-10.8)
[2019-08-13 06:19] LABS: Prothrombin Time 10.5 Seconds (9.0-12.0)
[2019-08-13 06:48] LABS: Albumin Level 1.9 gm/dl (3.4-5.0); BUN Creatinine Ratio 47.8 (10-20); Calcium 7.6 mg/dl (8.5-10.1); Creatinine Clr Calc Pharmacy 84.7 ml/min; Est GFR (African American) 102.2; Est GFR (Non-African American) 88.2; Magnesium 1.7 mg/dl (1.8-2.4); Potassium 4.1 mmol/L (3.5-5.1)
[2019-08-13 06:51] LABS: Albumin Globulin Ratio 0.8 (0.9-2); Bilirubin,Total 0.9 mg/dl (0.2-1); Globulin 2.5 gm/dl (2.5-4.0); Phosphorus 2.7 mg/dl (2.5-4.9); Total Protein 4.4 gm/dl (6.4-8.2)
--- NOTE | 2019-08-13 07:42 | Critical Care Progress Note ---
Date of Service August 13, 2019 Assessment & Plan (1) Admitted to intensive care unit: - Acute blood loss anemia secondary to gastrointestinal bleed - Recent pancreatic surgery (Whipple) - History of DVT and anticoagulated with warfarin - Supratherapeutic INR Neurologic: No issues currently Pulmonary: No issues currently Cardiovascular: History of coronary artery disease with some mild chest pain in the emergency department which has resolved. Will obtain a delta troponin. Gastrointestinal: Likely lower GI bleed. Will consult GI. Start him on Protonix twice daily with a an 80 mg push now. CBC every 6 hours. We will follow-up on his INR given that he received Kcentra. Hold anticoagulation at this time. He did have a CTA of his abdomen which demonstrated postsurgical changes of the Whipple procedure. He had atherosclerosis of the abdominal aorta without evidence of aneurysm, occlusion or hemodynamically significant stenosis. There were a short segment dissection or web in the right external iliac artery of doubtful clinical significance. There is also either hyperattenuating intraluminal contents versus collapsed small bowel in the left lower quadrant. Radiology noted that this could represent a site of gastrointestinal hemorrhage or in appearance related to underdistention and that no other site of potential gastrointestinal hemorrhage was evident. We will await gastroenterology consult. He is hemodynamically stable at present. Renal: Monitor creatinine and urine output given the fact that he did have some element of shock on presentation and also received a contrast load. No issues is apparent however. Infectious disease: No issues Hematologic: GI bleed as above. CBC every 6. Follow-up on the INR post Kcentra. Endocrine: Hyperglycemia protocol per pharmacy F/E/N: Continued IV fluid hydration. N.p.o. for now. Lines and tubes: Peripheral IVs in place. VTE prophylaxis: SCD CODE STATUS: Full Family at bedside: None available at bedside Disposition: To remain in the ICU today Thank you for allowing us to participate in the care of this patient. Please refer to my attending physician's documentation for any further recommendations. (2) Acute blood loss anemia: (3) GI bleed: (4) History of pulmonary embolism: (5) History of coronary artery disease: (6) Pulmonary embolism: (7) Supratherapeutic INR: Supervising Physician Co-Signing Physician Notes Dr. Dan was resident physician during care of patient. I separately evaluated patient for myers portions of the history and the exam. I was present during the critical portion of medical decision making, and I discussed the case with the resident. I generally agree with the findings and plan. Discussed with patient, feels tired has not had bloody bowel movements since admission. He does not know whether his cyst was malignant or not he has not been advised of his results. He is on anticoagulation for approximately the last 5 years after having clots subsequent to gastrointestinal surgery secondary to diverticulitis that turned into peritonitis. At this point we have consulted Dr. Koehler of [facility] gastroenterology for possible diagnostic versus therapeutic intervention, we will also consult surgery given the recent postop nature and change in anatomy, I cannot exclude that this may be more complex than our capabilities here and the patient may benefit from transfer for evaluation by his oncologic surgeon at [facility]. We will continue to trend his H&H maintain large-bore IV access continue to treat as if this represents gastritis however I am concerned about possible luminal bleed however this is somewhat decreased as his H&H does appear to remain stable. We briefly discussed CODE STATUS should he suffer cardiac arrest. Family () at bedside in agreement, they would desire more information i.e. pathology report before making a decision. Discussed with gastroenterology work-up is still pending: Normal colonoscopy reported in January of this year and follow-up EGD with atypical cells from an EUS with biopsy on April 2019. Clinical update: [address] Koehler and ALINE Sanchez, all are in agreement that there is high concern for anastomotic bleed and patient would benefit from evaluation by primary service at [facility], at this time he is been accepted by Dr. Amaya. His H&H has mildly decreased, we will continue his antiacid medications maintain to IV access points 18 or greater and urgent transfer to [facility]. Subjective Patient feels generally tired, denies chest pain positive shortness of breath with minimal exertion. No bloody bowel movement this morning. Review of Systems Review of Systems: Generalized fatigue, anorexia, no dizziness, no syncope. Physical Exam Physical Exam: General: Alert. nontoxic. Skin: Warm, dry, pallor Head: Atraumatic Ears, nose, mouth and throat: airway patent Cardiovascular: Normal peripheral perfusion Respiratory: no respiratory distress Gastrointestinal: Non distended, incisions clean dry intact, small amount of serosanguineous KEYANA drains Musculoskeletal: No deformity Results & Data Vital Signs (Past 12 Hours) Vital Signs Temp Pulse Resp BP Pulse Ox 08/13/19 06:00 81 15 96 08/13/19 05:43 69 14 104/55 L 95 08/13/19 05:01 81 17 106/59 L 95 08/13/19 04:43 82 12 98/53 L 96 08/13/19 04:00 37.1 C 74 15 96 08/13/19 03:43 85 17 104/63 95 08/13/19 03:00 73 14 93 08/13/19 02:43 71 13 104/57 L 96 08/13/19 02:00 74 14 95 08/13/19 01:43 76 15 103/61 94 08/13/19 01:00 73 14 94 08/13/19 00:43 78 13 116/67 94 08/13/19 00:00 36.7 C 79 14 95 08/12/19 23:59 77 08/12/19 23:43 82 21 114/67 97 08/12/19 23:00 78 14 97 08/12/19 22:43 75 14 102/68 97 08/12/19 21:53 78 08/12/19 21:43 80 13 113/57 L 98 08/12/19 21:00 73 16 98 08/12/19 20:43 73 11 L 99/61 L 99 08/12/19 20:00 37.1 C 72 14 99 08/12/19 19:43 74 12 105/61 97 Laboratory Results 08/13/19 08/13/19 08/13/19 Range/Units 09:59 09:59 09:59 WBC 19.91 H (4.8-10.8) K/uL RBC 2.98 L (4.7-6.1) M/uL Hgb 9.2 L (14.0-18.0) g/dL Hct 27.3 L (42-52) % MCV 91.6 (80-100) fL MCH 30.9 (25-34) pg MCHC 33.7 (32-36) g/dL RDW Std Deviation 53.9 H (36.4-46.3) fL RDW Coeff of Carlie 16.2 H (11.5-14.5) % Plt Count 334 (130-400) K/uL MPV 9.7 (7.4-10.4) fL PT (9.0-12.0) Seconds POC INR (0.9-1.1) INR (0.9-1.1) Sodium (136-145) mmol/L Potassium (3.5-5.1) mmol/L Chloride (98-107) mmol/L Carbon Dioxide (21-32) mmol/L Anion Gap (3-11) BUN (7-18) mg/dl Creatinine (0.6-1.4) mg/dl Est Cr Clr Drug Dosing ml/min Est GFR ( Amer) Est GFR (Non-Af Amer) BUN/Creatinine Ratio (10-20) Glucose (70-99) mg/dl POC Glucose (70-99) Lactate (0.4-2.0) mmol/L Calcium (8.5-10.1) mg/dl Phosphorus (2.5-4.9) mg/dl Magnesium (1.8-2.4) mg/dl Total Bilirubin (0.2-1) mg/dl Direct Bilirubin (0-0.2) mg/dl AST (15-37) U/L ALT (12-78) U/L Alkaline Phosphatase (45-117) U/L Troponin I 0.058 H* (0-0.045) ng/ml Total Protein (6.4-8.2) gm/dl Albumin (3.4-5.0) gm/dl Globulin (2.5-4.0) gm/dl Albumin/Globulin Ratio (0.9-2) Procalcitonin 0.06 (0-0.5) ng/ml Nasal Screen MRSA (PCR) (Negative) 08/13/19 08/13/19 08/13/19 Range/Units 05:58 05:56 05:56 WBC 18.68 H (4.8-10.8) K/uL RBC 2.96 L (4.7-6.1) M/uL Hgb 9.2 L (14.0-18.0) g/dL Hct 27.2 L (42-52) % MCV 91.9 (80-100) fL MCH 31.1 (25-34) pg MCHC 33.8 (32-36) g/dL RDW Std Deviation 54.3 H (36.4-46.3) fL RDW Coeff of Carlie 16.4 H (11.5-14.5) % Plt Count 319 (130-400) K/uL MPV 9.7 (7.4-10.4) fL PT (9.0-12.0) Seconds POC INR (0.9-1.1) INR (0.9-1.1) Sodium 141 (136-145) mmol/L Potassium 4.1 (3.5-5.1) mmol/L Chloride 109 H (98-107) mmol/L Carbon Dioxide 25 (21-32) mmol/L Anion Gap 7.0 (3-11) BUN 35 H (7-18) mg/dl Creatinine 0.73 (0.6-1.4) mg/dl Est Cr Clr Drug Dosing 84.7 ml/min Est GFR ( Amer) 102.2 Est GFR (Non-Af Amer) 88.2 BUN/Creatinine Ratio 47.8 H (10-20) Glucose 93 (70-99) mg/dl POC Glucose 104 H (70-99) Lactate (0.4-2.0) mmol/L Calcium 7.6 L (8.5-10.1) mg/dl Phosphorus 2.7 (2.5-4.9) mg/dl Magnesium 1.7 L (1.8-2.4) mg/dl Total Bilirubin 0.9 D (0.2-1) mg/dl Direct Bilirubin (0-0.2) mg/dl AST 33 (15-37) U/L ALT 38 (12-78) U/L Alkaline Phosphatase 84 (45-117) U/L Troponin I (0-0.045) ng/ml Total Protein 4.4 L (6.4-8.2) gm/dl Albumin 1.9 L (3.4-5.0) gm/dl Globulin 2.5 (2.5-4.0) gm/dl Albumin/Globulin Ratio 0.8 L (0.9-2) Procalcitonin (0-0.5) ng/ml Nasal Screen MRSA (PCR) (Negative) 08/13/19 08/12/19 08/12/19 Range/Units 05:56 23:44 23:42 WBC 18.73 H (4.8-10.8) K/uL RBC 2.95 L (4.7-6.1) M/uL Hgb 9.1 L (14.0-18.0) g/dL Hct 27.3 L (42-52) % MCV 92.5 (80-100) fL MCH 30.8 (25-34) pg MCHC 33.3 (32-36) g/dL RDW Std Deviation 55.6 H (36.4-46.3) fL RDW Coeff of Carlie 16.6 H (11.5-14.5) % Plt Count 318 (130-400) K/uL MPV 9.4 (7.4-10.4) fL PT 10.5 (9.0-12.0) Seconds POC INR (0.9-1.1) INR 1.0 (0.9-1.1) Sodium (136-145) mmol/L Potassium (3.5-5.1) mmol/L Chloride (98-107) mmol/L Carbon Dioxide (21-32) mmol/L Anion Gap (3-11) BUN (7-18) mg/dl Creatinine (0.6-1.4) mg/dl Est Cr Clr Drug Dosing ml/min Est GFR ( Amer) Est GFR (Non-Af Amer) BUN/Creatinine Ratio (10-20) Glucose (70-99) mg/dl POC Glucose 104 H (70-99) Lactate (0.4-2.0) mmol/L Calcium (8.5-10.1) mg/dl Phosphorus (2.5-4.9) mg/dl Magnesium (1.8-2.4) mg/dl Total Bilirubin (0.2-1) mg/dl Direct Bilirubin (0-0.2) mg/dl AST (15-37) U/L ALT (12-78) U/L Alkaline Phosphatase (45-117) U/L Troponin I (0-0.045) ng/ml Total Protein (6.4-8.2) gm/dl Albumin (3.4-5.0) gm/dl Globulin (2.5-4.0) gm/dl Albumin/Globulin Ratio (0.9-2) Procalcitonin (0-0.5) ng/ml Nasal Screen MRSA (PCR) (Negative) 08/12/19 08/12/1919 Range/Units 17:59 17:55 12:40 WBC 15.67 H (4.8-10.8) K/uL RBC 3.20 L (4.7-6.1) M/uL Hgb 9.9 L (14.0-18.0) g/dL Hct 29.7 L (42-52) % MCV 92.8 (80-100) fL MCH 30.9 (25-34) pg MCHC 33.3 (32-36) g/dL RDW Std Deviation 56.7 H (36.4-46.3) fL RDW Coeff of Carlie 16.8 H (11.5-14.5) % Plt Count 336 (130-400) K/uL MPV 9.5 (7.4-10.4) fL PT (9.0-12.0) Seconds POC INR (0.9-1.1) INR (0.9-1.1) Sodium (136-145) mmol/L Potassium (3.5-5.1) mmol/L Chloride (98-107) mmol/L Carbon Dioxide (21-32) mmol/L Anion Gap (3-11) BUN (7-18) mg/dl Creatinine (0.6-1.4) mg/dl Est Cr Clr Drug Dosing ml/min Est GFR ( Amer) Est GFR (Non-Af Amer) BUN/Creatinine Ratio (10-20) Glucose (70-99) mg/dl POC Glucose 107 H (70-99) Lactate (0.4-2.0) mmol/L Calcium (8.5-10.1) mg/dl Phosphorus (2.5-4.9) mg/dl Magnesium (1.8-2.4) mg/dl Total Bilirubin 1.4 H D (0.2-1) mg/dl Direct Bilirubin 0.3 H (0-0.2) mg/dl AST 35 (15-37) U/L ALT 45 (12-78) U/L Alkaline Phosphatase 92 (45-117) U/L Troponin I 0.321 H* (0-0.045) ng/ml Total Protein 4.8 L (6.4-8.2) gm/dl Albumin 2.2 L (3.4-5.0) gm/dl Globulin (2.5-4.0) gm/dl Albumin/Globulin Ratio (0.9-2) Procalcitonin (0-0.5) ng/ml Nasal Screen MRSA (PCR) (Negative) 08/12/19 08/12/19 08/12/19 Range/Units 12:40 12:28 12:28 WBC 17.98 H (4.8-10.8) K/uL RBC 3.54 L (4.7-6.1) M/uL Hgb 10.9 L (14.0-18.0) g/dL Hct 33.1 L (42-52) % MCV 93.5 (80-100) fL MCH 30.8 (25-34) pg MCHC 32.9 (32-36) g/dL RDW Std Deviation 56.2 H (36.4-46.3) fL RDW Coeff of Carlie 16.5 H (11.5-14.5) % Plt Count 343 (130-400) K/uL MPV 9.8 (7.4-10.4) fL PT 10.9 (9.0-12.0) Seconds POC INR (0.9-1.1) INR 1.1 (0.9-1.1) Sodium (136-145) mmol/L Potassium (3.5-5.1) mmol/L Chloride (98-107) mmol/L Carbon Dioxide (21-32) mmol/L Anion Gap (3-11) BUN (7-18) mg/dl Creatinine (0.6-1.4) mg/dl Est Cr Clr Drug Dosing ml/min Est GFR ( Amer) Est GFR (Non-Af Amer) BUN/Creatinine Ratio (10-20) Glucose (70-99) mg/dl POC Glucose (70-99) Lactate 2.0 (0.4-2.0) mmol/L Calcium (8.5-10.1) mg/dl Phosphorus (2.5-4.9) mg/dl Magnesium (1.8-2.4) mg/dl Total Bilirubin (0.2-1) mg/dl Direct Bilirubin (0-0.2) mg/dl AST (15-37) U/L ALT (12-78) U/L Alkaline Phosphatase (45-117) U/L Troponin I (0-0.045) ng/ml Total Protein (6.4-8.2) gm/dl Albumin (3.4-5.0) gm/dl Globulin (2.5-4.0) gm/dl Albumin/Globulin Ratio (0.9-2) Procalcitonin (0-0.5) ng/ml Nasal Screen MRSA (PCR) (Negative) 08/12/19 08/12/19 Range/Units 12:00 07:53 WBC (4.8-10.8) K/uL RBC (4.7-6.1) M/uL Hgb (14.0-18.0) g/dL Hct (42-52) % MCV (80-100) fL MCH (25-34) pg MCHC (32-36) g/dL RDW Std Deviation (36.4-46.3) fL RDW Coeff of Carlie (11.5-14.5) % Plt Count (130-400) K/uL MPV (7.4-10.4) fL PT (9.0-12.0) Seconds POC INR 4.1 H (0.9-1.1) INR (0.9-1.1) Sodium (136-145) mmol/L Potassium (3.5-5.1) mmol/L Chloride (98-107) mmol/L Carbon Dioxide (21-32) mmol/L Anion Gap (3-11) BUN (7-18) mg/dl Creatinine (0.6-1.4) mg/dl Est Cr Clr Drug Dosing ml/min Est GFR ( Amer) Est GFR (Non-Af Amer) BUN/Creatinine Ratio (10-20) Glucose (70-99) mg/dl POC Glucose (70-99) Lactate (0.4-2.0) mmol/L Calcium (8.5-10.1) mg/dl Phosphorus (2.5-4.9) mg/dl Magnesium (1.8-2.4) mg/dl Total Bilirubin (0.2-1) mg/dl Direct Bilirubin (0-0.2) mg/dl AST (15-37) U/L ALT (12-78) U/L Alkaline Phosphatase (45-117) U/L Troponin I (0-0.045) ng/ml Total Protein (6.4-8.2) gm/dl Albumin (3.4-5.0) gm/dl Globulin (2.5-4.0) gm/dl Albumin/Globulin Ratio (0.9-2) Procalcitonin (0-0.5) ng/ml Nasal Screen MRSA (PCR) Negative (Negative) Critical Care Time Critical Care Time: Yes Total Critical Care Time: 45 I have personally spent 45 minutes of critical care time in the direct management of this patient. This is a life/limb threatening event. This includes time spent evaluating patient, direct bedside care, chart review, placing orders, interpretation of diagnostic studies, discussion with consultants, patient, and/or family members regarding treatment decisions, as well as other required patient management activities. This time is exclusive of all separately billable procedures, and teaching time and separate from and in addition to any other critical care service time. (1) GI bleed GI bleed type/associated pathology: unspecified gastrointestinal hemorrhage type Qualified Code(s): K92.2 - Gastrointestinal hemorrhage, unspecified
[2019-08-13 09:02] VITALS: TEMP 98.6
[2019-08-13] MEDS: PANTOprazole 40 MG in SYRINGE 0 ML IV SCH (10:06)
[2019-08-13] MEDS: MAGNESIUM SULFATE / D5W 1 GM/100 ML BAG IV SCH ×2 (10:07→12:08)
[2019-08-13 10:17] LABS: Hematocrit (blood only) 27.3 % (42-52); Hemoglobin 9.2 g/dL (14.0-18.0); Mean Corpuscular Hemoglobin 30.9 pg (25-34); Mean Corpuscular Hgb Conc 33.7 g/dL (32-36); Mean Corpuscular Volume 91.6 fL (80-100); Mean Platelet Volume 9.7 fL (7.4-10.4); Platelet Count 334 K/uL (130-400); RDW Coefficient of Variation 16.2 % (11.5-14.5); RDW Standard Deviation 53.9 fL (36.4-46.3); Red Blood Count 2.98 M/uL (4.7-6.1); White Blood Count 19.91 K/uL (4.8-10.8)
--- NOTE | 2019-08-13 11:31 | Gastrointestinal Consultation ---
Date of Consultation August 13, 2019 Assessment & Plan (1) GI bleed: Likely small intestinal bleeding from the surgical site (Whipple) in the setting of supratherapeutic INR. Bleeding has slowed with PPI drip, bowel rest but remains intermittently hypotensive. Present on Admission?: Yes Supervising Physician Co-Signing Physician Notes I have personally seen and examined the patient with MAIDA Carlton. Her note reflects my exam and findings. I agree with her impression and plan. GI bleeding in setting of recent Whipple and over anticoagulation. Patient states his KEYANA drains have also not been draining past few days. From a GI perspective, there is concern the differential includes operative site bleeding. More likely possible diverticular bleeding or peptic ulcer disease. He has not had bleeding rectally since correcting his INR. I would recommend discussing case with primary surgical team in [place] given recent surgery. Patient may benefit from advanced level of care in [place] where IR is readily available. Sotero Atwood M.D. History of Present Illness Reason for Consultation: Rectal bleeding Requesting Physician: Dr. Angel Attending Physician: Mina Angel History of Present Illness Mr. Gagan Arnold is a 78 yr old male pt of Dr. Delacruz with a hx of CAD, PE on warfarin, colon cancer, S/P resection, BPH, who experienced pancreatitis, underwent EUS by Dr. Jiménez with path suggestive of atypical cells but no dysplasia, then Whipple by Dr. 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 The pt experienced a syncopal episode around 7AM yesterday morning and was noted to be incontinent of a loose bloody BM at that time. He was brought to [facility] where Hb was 8.1 (+2 units RBCs -> 9.2) and INR 4 (reversed to 1). He has had periods of hypotension but most recent BP 109 /66. He remains weak but has not had further rectal bleeding since arrival. He has some mild abdominal pain near the area of incision/drains but no significant abdominal pain or cramping. He tells me that the drain output was bloody from surgery until admission here. I spoke with Dr. Amaya from [place] surgical oncology (Dr. Ruiz's partner) with above information and Dr. Sheppard accepted pt transfer. A bed has been obtained and transportation is being arranged. Allergies Allergy/AdvReac Type Severity Reaction Status Date / Time morphine AdvReac Mild nausea Verified 08/12/19 08:40 Home Medications Home Medications Medication Instructions Recorded Confirmed Type aspirin 81 mg tablet,delayed 81 mg PO DAILY tab 04/18/19 08/12/19 History release cetirizine 10 mg tablet 10 mg PO DAILY tab 04/18/19 08/12/19 History warfarin 2.5 mg tablet 2.5 - 5 mg PO UD tab 04/18/19 08/12/19 History multivitamin 1 tab PO DAILY 04/19/19 08/12/19 History nitroglycerin 0.4 mg sublingual 0.4 mg SL Q5M PRN 04/19/19 08/12/19 History tablet magnesium oxide 420 mg tablet 250 mg PO DAILY tab 07/05/19 08/12/19 History Antibiotic Medication 0 mg PO UNKNOWN 08/12/19 08/12/19 History acetaminophen [Pain Relief Extra 1,000 mg PO Q8 PRN 08/12/19 08/12/19 History Strength] atorvastatin [Lipitor] 40 mg PO HS 08/12/19 08/12/19 History celecoxib [Celebrex] 100 mg PO DAILY 08/12/19 08/12/19 History dutasteride [Avodart] 0.5 mg PO DAILY 08/12/19 08/12/19 History tamsulosin [Flomax] 0.4 mg PO HS 08/12/19 08/12/19 History Patient History Family History Other Family history non-contributory Social History Preferred Language: American Communication Ability: Effective Pantomimist Required: No Beliefs That Will Affect Care: None marital status: Current Living Situation: Spouse current occupational status: retired Other Information That Helps Us Care for You: No Feels Safe at Home: Yes Safety Concerns: Feels Safe At This Time Smoking Status: Former smoker Do You Dip or Chew Tobacco: No ; Smoking End Date: 1984 ; Second Hand Exposure: No ; Tobacco Cessation Education Requested by Patient: No Hx Alcohol Use: No Hx Substance Use: No Review of Systems Review of Systems: ROS: Gen: + weakness, no fevers, + weight loss Eyes: No eye redness, or pain, no recent vision changes Resp: No SOB, no cough Cardio: + syncope yesterday; No palpitations/irregular beats, no chest pain GI: No abdominal pain, no nausea/vomiting : Denies pain on urination Skin: No jaundice, itching or new rashes Physical Exam Constitutional: well developed, + ill appearing, + well hydrated and average body habitus; no acute distress Eyes: PERRL, conjunctivae normal, anicteric sclerae ENMT: external ear and nose normal, oropharynx normal Neck: trachea midline, no thyromegaly Respiratory: normal respiratory effort, lungs clear to auscultation Cardiovascular: RRR, no murmur, no edema Gastrointestinal (Abdomen): Abd non distended, BS present but hypoactive, drains in place with minimal drainage, serous color, dressings dry, intact Skin: no rashes, warm and dry Neurologic: PERRL, EOMI, accommodation nl, no face palsy, no dysarthria Psychiatric: A+Ox3, euthymic affect Results & Data Vital Signs (Past 12 Hours) Vital Signs Temp Pulse Resp BP Pulse Ox 08/13/19 09:00 77 18 94 08/13/19 08:43 37 C 76 19 107/64 95 08/13/19 07:43 77 14 105/69 94 08/13/19 06:00 81 15 96 08/13/19 05:43 69 14 104/55 L 95 08/13/19 05:01 81 17 106/59 L 95 08/13/19 04:43 82 12 98/53 L 96 08/13/19 04:00 37.1 C 74 15 96 08/13/19 03:43 85 17 104/63 95 08/13/19 03:00 73 14 93 08/13/19 02:43 71 13 104/57 L 96 08/13/19 02:00 74 14 95 08/13/19 01:43 76 15 103/61 94 08/13/19 01:00 73 14 94 08/13/19 00:43 78 13 116/67 94 08/13/19 00:00 36.7 C 79 14 95 08/12/19 23:59 77 08/12/19 23:43 82 21 114/67 97 Laboratory Results WBC 19, Hb 9.2, Hct 27.3, Platelets 334, Na 141, K 4.1, Cl 109, CO2 25, BUN 35, Cr 0.7, glucose [address] with IV contrast 08/12: 1. Postsurgical changes of Whipple procedure. This is not optimally depicted given the phase of intravenous contrast and lack of oral contrast. No gross complication is apparent. 2. Atherosclerosis of the abdominal aorta without evidence of aneurysm, occlusion, or hemodynamically significant stenosis. 3. 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 This is of doubtful clinical significance. 4. Either hyperattenuating intraluminal contents versus collapsed small bowel in the left lower quadrant. This could represent a site of gastrointestinal hemorrhage or an appearance related to underdistention. No other sites of potential gastrointestinal hemorrhage is evident. Medications Administered Protonix drip (1) GI bleed GI bleed type/associated pathology: unspecified gastrointestinal hemorrhage type Qualified Code(s): K92.2 - Gastrointestinal hemorrhage, unspecified
[2019-08-13 12:28] VITALS: O2SAT 97
--- NOTE | 2019-08-13 12:34 | Billing Data ---
Date of Service August 13, 2019 Coding Level of Care Code Critical Care 1st - mins
--- NOTE | 2019-08-13 12:39 | Surgery Consultation ---
Date of Consultation August 13, 2019 Assessment & Plan (1) GI bleed: Patient with GI bleeding status post recent surgery on Lovenox and Coumadin at home. Patient's vital signs are currently stable and his anticoagulants have been held The current plan is for transfer to [facility] From a surgical standpoint in this hospital I have no change in the plan History of Present Illness Attending Physician: Mina Angel History of Present Illness Patient admitted through the emergency room yesterday with GI bleeding, hypotension, dizziness. 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 He was sent home on Lovenox and Coumadin with a prior history of pulmonary embolism He also has a history of prior abdominal operations for colon cancer and a bowel obstruction He has received 2 units of blood transfused yesterday His vital signs are currently stable and apparently the plan is to transfer him to [place] Allergies Allergy/AdvReac Type Severity Reaction Status Date / Time morphine AdvReac Mild nausea Verified 08/12/19 08:40 Home Medications Home Medications Medication Instructions Recorded Confirmed Type aspirin 81 mg tablet,delayed 81 mg PO DAILY tab 04/18/19 08/12/19 History release cetirizine 10 mg tablet 10 mg PO DAILY tab 04/18/19 08/12/19 History warfarin 2.5 mg tablet 2.5 - 5 mg PO UD tab 04/18/19 08/12/19 History multivitamin 1 tab PO DAILY 04/19/19 08/12/19 History nitroglycerin 0.4 mg sublingual 0.4 mg SL Q5M PRN 04/19/19 08/12/19 History tablet magnesium oxide 420 mg tablet 250 mg PO DAILY tab 07/05/19 08/12/19 History Antibiotic Medication 0 mg PO UNKNOWN 08/12/19 08/12/19 History acetaminophen [Pain Relief Extra 1,000 mg PO Q8 PRN 08/12/19 08/12/19 History Strength] atorvastatin [Lipitor] 40 mg PO HS 08/12/19 08/12/19 History celecoxib [Celebrex] 100 mg PO DAILY 08/12/19 08/12/19 History dutasteride [Avodart] 0.5 mg PO DAILY 08/12/19 08/12/19 History tamsulosin [Flomax] 0.4 mg PO HS 08/12/19 08/12/19 History Patient History Family History Other Family history non-contributory Social History Preferred Language: Mohawk Communication Ability: Effective 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 Beliefs That Will Affect Care: None marital status: Current Living Situation: Spouse current occupational status: retired Other Information That Helps Us Care for You: No Feels Safe at Home: Yes Safety Concerns: Feels Safe At This Time Smoking Status: Former smoker Do You Dip or Chew Tobacco: No ; Smoking End Date: 1984 ; Second Hand Exposure: No ; Tobacco Cessation Education Requested by Patient: No Hx Alcohol Use: No Hx Substance Use: No Review of Systems Review of Systems: All systems reviewed & are unremarkable except as noted in HPI & below Physical Exam Physical Exam: Patient is awake and appropriately responsive His vital signs are stable Constitutional: + ill appearing; no acute distress Respiratory: normal respiratory effort; no respiratory distress Cardiovascular: Rate/Rhythm: regular rate Gastrointestinal (Abdomen): Inspection/Auscultation: abdomen not distended Abdomen is soft Skin: no rashes, warm and dry Neurologic: awake Psychiatric: Orientation: cooperative Results & Data Vital Signs (Past 12 Hours) Vital Signs Temp Pulse Resp BP Pulse Ox 08/13/19 11:43 91 H 18 109/66 97 08/13/19 10:43 77 19 101/62 97 08/13/19 09:43 77 21 109/64 96 08/13/19 09:00 77 18 94 08/13/19 08:43 37 C 76 19 107/64 95 08/13/19 07:43 77 14 105/69 94 08/13/19 06:00 81 15 96 08/13/19 05:43 69 14 104/55 L 95 08/13/19 05:01 81 17 106/59 L 95 08/13/19 04:43 82 12 98/53 L 96 08/13/19 04:00 37.1 C 74 15 96 08/13/19 03:43 85 17 104/63 95 08/13/19 03:00 73 14 93 08/13/19 02:43 71 13 104/57 L 96 08/13/19 02:00 74 14 95 08/13/19 01:43 76 15 103/61 94 08/13/19 01:00 73 14 94 08/13/19 00:43 78 13 116/67 94 PG Care Time/CCT Total # of Minutes Spent Total Time Spent with Patient: Total time spent is greater than 50% in coordination of care (as documented) at patient's floor/unit and/or counseling patient: (1) GI bleed GI bleed type/associated pathology: unspecified gastrointestinal hemorrhage type Qualified Code(s): K92.2 - Gastrointestinal hemorrhage, unspecified
[2019-08-13 14:38] VITALS: BP 110/58; PULSE 69
--- NOTE | 2019-08-16 20:25 | Discharge Summary ---
Date of Service August 13, 2019 Admission HPI Per Admitting Provider 78yo M w/ hx of pancreatic head mass s/p Whipple at [facility] who presents for lower GI bleed. Per , he was discharged on 08/06/2019. He was sent out on Lovenox with warfarin transition. Last injection was on 08/11. Overnight, he had an upset stomach and just didn't feel right. In the morning, he had several episodes of bright red blood per rectum. In the ED, his hgb was found to be 8 from a prior of 14. INR was 3.9. His blood pressure was 70/40. He was given fluids, K-centra, and 2 units of blood in the ED with improvement of his blood pressure. CTA of the abodomen and pelvis showed blood in the small intestine, but no surgical issues. Principal Diagnosis GI bleed Discharge Exam Constitutional: + ill appearing Eyes: EOM intact bilaterally; no conjunctival abnormality ENMT: external ear and nose normal, oropharynx normal Neck: trachea midline, no thyromegaly normal visual inspection Respiratory: normal respiratory effort, lungs clear to auscultation no respiratory distress Cardiovascular: RRR, no murmur, no edema Gastrointestinal (Abdomen): Inspection/Auscultation: abdomen normal to inspection; abdomen not distended Musculoskeletal: no cyanosis or clubbing, extremities motor strength 5/5 Skin: no rashes, warm and dry Neurologic: moves all extremities and awake Psychiatric: Orientation: alert, oriented to person and cooperative Discharge Data Allergies Allergy/AdvReac Type Severity Reaction Status Date / Time morphine AdvReac Mild nausea Verified 08/12/19 08:40 Consultations 08/12/19 08:37 ED Decision to Admit Stat 08/12/19 11:59 Consult Gastroenterology Routine Consult Spare Hand Carding Routine 08/13/19 09:57 Consult General Surgery Routine 08/13/19 12:21 Burn CD for patient Stat Ordered Studies 08/12/19 09:02 CT angio abdomen pelvis w con Stat Hospital Course (1) GI bleed: Due to "double anticoagulation" from his Lovenox and a supratherapeutic INR. - S/p reversal of INR with K-centra and vitamin K -> INR now 1.1 - Transfuse as needed - H&H Q6h - GI and surgery consulted On day of discharge, pecan mallow dipper recommended patient to be seen by surgeon at tertiary center. Patient will be discharged today. transfer to [facility]. Likely site of bleed is from [place] (2) Hemorrhagic shock: BP initially 70/40 on presentation. - Improved s/p fluids and 2 units of PRBCs on 08/12 (3) Elevated INR: Likely due to poor PO intake while on warfarin. - Reversed as above (4) CAD (coronary artery disease): Bare metal stent in 2008. Troponin up to 0.3 in setting of severe GI bleed; likely demand ischemia. EKG without ST depressions or any TWIs. - Restart ASA, statin after bleeding has stopped - Trend troponins per ICU team (5) Pulmonary embolism: Unclear when this occurred, but clearly holding all anticoagulation in light of severe bleeding. - Get more information on Tuesday - Restart anticoagulation as able - SCDs at present for DVT prophylaxis Total Time Total Time Spent Total Time Spent (In Minutes): 35 Total Time Includes: Examination of the Patient, Discharge Planning, Medication Reconciliation and Communication With Other Providers Discharge Plan Discharge Items Patient Disposition: Transfer Acute Care Hospital Reason For Visit: RECTAL BLEEDING Discharge Diagnosis: GI bleed Activity: As commented below Activity Comment: bedrest Non-emergency contact: Primary Care Provider Call non-emergency contact if: you have any medication questions Follow-up/Referrals: Rishi Delacruz MD [Primary Care Provider] - Dietitian Info: NPO diet Diet: Clear liquid Diet Comment: NPO diet Addtl Attending Provider Instructions: Being trasnferred to [facility] Home meds held due to GI bleed. Pending Studies at Discharge: No Stand-Alone Forms: My [facility] Skilled Items Patient informed of condition?: Yes DNR: No Discharge Level of Care: Other Communicable Disease: No Discharge Prognosis: Other Lines: Peripheral IV Urinary Catheter: No Medications and DC Order Prescriptions: Discontinued aspirin 81 mg tablet,delayed release (DR/EC) 81 mg PO DAILY RF: 0 warfarin [Coumadin] 2.5 mg tablet 2.5 - 5 mg PO UD RF: 0 cetirizine [Zyrtec] 10 mg tablet 10 mg PO DAILY RF: 0 multivitamin [Multiple Vitamins] tablet 1 tab PO DAILY RF: 0 nitroglycerin [Nitrostat] 0.4 mg tablet, sublingual 0.4 mg SL Q5M PRN (Reason: Chest Pain) RF: 0 magnesium oxide 420 mg tablet 250 mg PO DAILY RF: 0 Antibiotic Medication 0 mg PO UNKNOWN RF: 0 acetaminophen [Pain Relief Extra Strength] 500 mg tablet 1,000 mg PO Q8 PRN (Reason: Pain) RF: 0 atorvastatin [Lipitor] 40 mg tablet 40 mg PO HS RF: 0 tamsulosin [Flomax] 0.4 mg capsule 0.4 mg PO HS RF: 0 celecoxib [Celebrex] 100 mg capsule 100 mg PO DAILY RF: 0 dutasteride [Avodart] 0.5 mg capsule 0.5 mg PO DAILY RF: 0 No Action acetaminophen 500 mg tablet 1,000 mg PO Q8H PRN (Reason: pain) RF: 0 aspirin 81 mg tablet,delayed release (DR/EC) 81 mg PO DAILY RF: 0 celecoxib [Celebrex] 100 mg capsule 100 mg PO DAILY RF: 0 dutasteride 0.5 mg capsule 0.5 mg PO DAILY RF: 0 hyoscyamine sulfate 0.125 mg tablet 0.125 mg PO .COMPLEX PRN (Reason: abdominal pain) RF: 0 atorvastatin [Lipitor] 40 mg tablet 40 mg PO DAILY RF: 0 magnesium oxide 200 mg magnesium tablet 200 mg PO DAILY RF: 0 multivitamin [Daily Multi-Vitamin] tablet 1 tab PO DAILY RF: 0 triamcinolone acetonide 55 mcg/actuation aerosol See Rx Instructions INTNAS .COMPLEX PRNRF: 0 nitroglycerin 0.4 mg tablet, sublingual 0.4 mg SL Q5M PRN (Reason: chest pain) RF: 0 tamsulosin 0.4 mg capsule 0.4 mg PO DAILY RF: 0 warfarin 2.5 mg tablet 2.5 mg PO UD RF: 0 cetirizine [Zyrtec] 10 mg tablet 10 mg PO DAILY PRN (Reason: allergy symptoms) RF: 0 Discharge Orders: Discharge Order (Routine); Ordered 08/13/19 Ordered By: Mina Angel Admission Data Admit Date/Time: 08/12/19 10:30 Attending Provider: Mina Angel Admit Provider: Mynor Duvall Primary Care Provider: Rishi Delacruz Other Providers: Mynor Duvall ; Steven Lassiter ; Tariq Post ; Atwood,Sotero S. Other Interventions: Discharge Summary Assessment (RN) Last Done: 08/13/19 13:58 DC Date/Time DO NOT enter until pt leaves facility: 08/13/19 14:40
== END 2019-08-13 14:40 | disposition short-term general hospital (02) | DRG 920 ==
LOC: ED 07:13 → 1E 10:30 → SUATTDRO 10:30 → 1E 11:28

== ENCOUNTER 2023-01-06 18:24 | Observation (INO) ==
[2023-01-06] MEDS ORDERED: ASPIRIN CHEW 324 MG PO STA (18:40)
--- NOTE | 2023-01-06 18:52 | Emergency Department Note ---
Impression & Plan Chest pain, Abnormal EKG, Bradycardia, sinus ED Provider Note NAME: EVELIN LOPEZ JR AGE: 82 SEX: M : 1940 ARRIVES VIA: Walk-In INFORMANT: Patient, the patient's significant other ED PROVIDER(S): Walker Thomson DO CHIEF COMPLAINT: Chest pain HPI: The patient is an 82-year-old male who presented to the emergency department for an evaluation of chest pain. The patient states approximately 1 hour ago he was sitting at his desk. He noticed an acute onset of discomfort in his anterior chest. This was nonradiating. He does admit that he was doing some exertional sports over the last few days including golf as well as tennis. He does have a history of coronary artery disease with stenting in the past. He has been compliant with his outpatient medications. His significant other presented with him and states that he was "off" earlier. He seemed to be dizzy and confused at times. The patient denies having any headache. He denies having any difficulty ambulating at this time. He denies having any vertigo symptoms. He came directly to the emergency department because the symptoms. He states initially he felt very chilled and shaky but those symptoms have since improved somewhat. ROS: See above HPI for pertinent positives & negatives. A total of 10 systems reviewed and were otherwise negative. PAST MEDICAL HISTORY: See Below PAST SURGICAL HISTORY: See Below FAMILY HISTORY: See Below SOCIAL HISTORY: See Below HOME MEDICATIONS: See Below ALLERGIES: See Below VITALS: See Below PHYSICAL EXAMINATION: GENERAL: Patient is awake alert in no acute distress patient is resting comfortably and showing no signs of anxiety EYES: The conjunctivae are clear. The pupils are round and reactive. EARS, NOSE, MOUTH AND THROAT: The nose is without any evidence of any deformity. Mucous membranes are moist. Tongue is midline. NECK: The neck is nontender and supple. RESPIRATORY: Normal respiratory effort is noted there is no evidence of wheezing rhonchi or rales CARDIOVASCULAR: Regular rate and rhythm noted there no murmurs rubs or gallops normal S1 normal S2. GASTROINTESTINAL: The abdomen is soft. Abdomen is nontender. MUSCULOSKELETAL/EXTREMITIES: There is no evidence of gross deformity full range of motion is noted in the hips and shoulders. SKIN: There is no obvious evidence of any rash. There are no petechiae, pallor or cyanosis noted. There is no calf tenderness. NEUROLOGIC: Patient is awake alert and oriented x3. Strength is symmetric. Speech was clear. There is no facial droop. MEDICAL DECISION MAKING: The patient is an 82-year-old male who has a history of coronary artery disease who presented to the emergency department for an evaluation of chest pain. The patient was having an episode of chest pain with diaphoresis. He was also noted to have bradycardia by his significant other. I discussed the patient's laboratory and radiographic studies with him. I discussed the limitations of the emergency department work-up for chest pain with him. He was found to have an EKG that showed a slight interventricular conduction delay compared to previous. Troponin was negative x2. The patient continued to have episodes of bradycardia in the 30s and 40s. Given his risk factors and comorbidities I do not feel the patient would be a good candidate for outpatient work-up therefore I will discuss his case with the [facility]. Triage Nursing notes reviewed. Prior medical records reviewed Vital Signs: reviewed and remarkable for bradycardia. Differential diagnosis: Cardiac ischemia, aortic dissection, pulmonary embolism, pneumothorax, pneumonia, pericarditis, myocarditis, esophageal rupture, GERD, cholecystitis, pancreatitis, musculoskeletal, as well as other pathologies. ER treatment provided: See below Diagnostics interpreted by me: ECG: EKG was obtained in the emergency department. My interpretation is sinus bradycardia at 62 bpm. Frequent PVCs were noted. There was a slight prolongation of the QRS to 118. The ectopy as well as a QRS prolongation are new compared to a tracing from August 14, 2015. A second EKG was obtained. My interpretation is sinus rhythm at 71 bpm. Frequent PVCs were noted. There was no acute ST segments. This compares favorably to the earlier tracing in the emergency department Cardiac Monitoring: An order was placed for continuous cardiac monitoring. The monitor shows a rate of sinus bradycardia at 40 bpm. Laboratory studies: As stated above and show below. Imaging studies: See below. Radiographic imaging was reviewed by myself Consultation(s): The [facility] hospitalist, Dr. Magdaleno was notified about the patient. ED COURSE: The patient was placed in observation status at 1849. For chest pain work-up. During the time in observation, the patient was frequently reassessed and received serial troponin measurements. On Final reassessment the patient the patient was feeling much better and troponin did not show an elevation, And the patient will be evaluated by the hospitalist for possible inpatient management and further work-up at this time. A total observation time of 2 hours. Past Med/Surg History Medical History Anemia Colon cancer ~1991 Diverticular disease Enlarged prostate with lower urinary tract symptoms (LUTS) [place] filter in place History of anesthesia reaction in 2013--difficulty urinating after gallbladder removal History of coronary artery disease History of DVT (deep vein thrombosis) s/p colon resection History of irregular heartbeat unsure of name History of pulmonary embolism perioperative/surrounding hospitalizations Hyperlipidemia Osteoarthritis Pancreatic lesion (04/24/14) Pancreatic neoplasm Benign Mucinous IPMN s/p whipple resection Pancreatitis ~2014, several episodes. Prolonged QT interval Small bowel obstruction 2013 Surgical History History of cardiac cath x1 stent (~2005). CODIE Ewing, follows with Dr Stevens annually History of colonoscopy History of colostomy 2014 History of colostomy reversal History of esophagogastroduodenoscopy (EGD) EUS History of left cataract extraction History of repair of rotator cuff right x2 History of right cataract surgery History of tonsillectomy Hx of abdominal surgery Whipple procedure. CODIE Ewing. (benign pancreatitic lesion) S/P appendectomy S/P cholecystectomy S/P colon resection ~1991 r/t colon cancer ~2013 r/t diverticulitis S/P inguinal hernia repair left S/P vascular surgery placement of [place] filter Family History Father Stroke Brother Myocardial infarction Other Family history non-contributory No family history of adverse response to anesthesia Denies family history of Ovarian cancer Prostate cancer Breast cancer Colorectal cancer Social History Smoking Status: Never smoker Age Started Using Tobacco: 29; Age Quit Using Tobacco: 39; Second Hand Exposure: No; Do You Dip or Chew Tobacco: No; Hx Alcohol Use: Yes (2 drinks per day ) Alcohol type: beer, wine and hard liquor Hx Substance Use: No Preferred Language: Iranian Communication Ability: Effective Hostel Parent Required: No Beliefs That Will Affect Care: None marital status: Current Living Situation: Spouse current occupational status: retired Feels Safe at Home: Yes Childhood Exposure to Second-Hand Smoke: No Dental Care, Regularly: Yes Physical Activity Frequency: 5-6 Times per Week Seatbelt Use: always Sunscreen Use: Yes Assistive Devices: Glasses Allergies Allergies Allergy/AdvReac Type Severity Reaction Status Date / Time morphine AdvReac Mild nausea Verified 01/06/23 19:07 Home Meds Home Medications Medication Instructions Recorded Confirmed cetirizine 10 mg tablet (Zyrtec) 10 mg PO HS 08/16/19 01/06/23 multivitamin (Daily Multi-Vitamin 1 tab PO QAM 08/16/19 01/06/23 tablet) nitroglycerin 0.4 mg sublingual 0.4 mg sublingual Q5M PRN chest 08/16/19 01/06/23 tablet pain magnesium oxide 250 mg PO QAM 11/07/19 01/06/23 dutasteride 0.5 mg capsule 0.5 mg PO HS 01/06/23 01/06/23 Previous Rx's Medication Instructions Recorded atorvastatin 40 mg tablet (Lipitor) 40 mg PO HS #90 tabs 07/14/22 omeprazole 20 mg capsule,delayed 20 mg PO QAM #90 caps 07/14/22 release [id number] 1 cap PO AC #270 caps 10/11/22 24,000-76,000-120,000 unit capsule,delayed rel (Creon) tamsulosin 0.4 mg capsule 0.4 mg PO DAILY #90 caps 12/07/22 Results & Data (ED) Vital Signs Vital Signs - 24 hr 01/06/23 18:29 01/06/23 19:13 01/06/23 20:30 Temperature 36.6 C Temperature Source Temporal Artery Scan Pulse Rate 88 59 L Pulse Rate from SpO2 Sensor Respiratory Rate 16 Respiratory Depth Normal Blood Pressure 158/81 H Blood Pressure Mean 106 Pulse Oximetry 97 98 Oxygen Delivery Method Room Air Room Air Sepsis Recent Fever Within 48 Hours No Sepsis New/Unexplained Change in Mental Status No Sepsis Action Taken by Nursing No Action Required 01/06/23 20:23 01/06/23 20:30 01/06/23 20:30 Temperature Temperature Source Pulse Rate 55 L 63 Pulse Rate from SpO2 Sensor 45 L Respiratory Rate 15 16 Respiratory Depth Blood Pressure 153/76 H Blood Pressure Mean 101 Pulse Oximetry 97 Oxygen Delivery Method Sepsis Recent Fever Within 48 Hours Sepsis New/Unexplained Change in Mental Status Sepsis Action Taken by Nursing 01/06/23 21:00 01/06/23 21:00 01/06/23 21:30 Temperature Temperature Source Pulse Rate 51 L Pulse Rate from SpO2 Sensor 48 L Respiratory Rate 17 Respiratory Depth Blood Pressure 125/72 122/65 Blood Pressure Mean 89 84 Pulse Oximetry 98 Oxygen Delivery Method Sepsis Recent Fever Within 48 Hours Sepsis New/Unexplained Change in Mental Status Sepsis Action Taken by Nursing 01/06/23 21:30 01/06/23 22:00 Temperature Temperature Source Pulse Rate 42 L 52 L Pulse Rate from SpO2 Sensor 49 L Respiratory Rate 12 14 Respiratory Depth Blood Pressure Blood Pressure Mean Pulse Oximetry 97 Oxygen Delivery Method Sepsis Recent Fever Within 48 Hours Sepsis New/Unexplained Change in Mental Status Sepsis Action Taken by Intermediate Medications Current Medication List: was personally reviewed by me Laboratory Data Attestation: I reviewed the patient's lab results. 01/06/23 18:49 01/06/23 18:49 Lab Results 01/06/23 01/06/23 01/06/23 Range/Units 18:49 18:49 18:49 WBC 10.75 (4.8-10.8) K/ul RBC 4.74 (4.70-6.10) M/uL Hgb 15.0 (14.0-18.0) g/dl Hct 45.6 (42.0-52.0) % MCV 96.2 (80.0-100.0) fL MCH 31.6 (25.0-34.0) pg MCHC 32.9 (32.0-36.0) g/dL RDW Std Deviation 47.0 H (36.4-46.3) fL RDW Coeff of Carlie 13.2 (11.5-14.5) % Plt Count 223 (130-400) K/uL MPV 11.4 (9.4-12.4) fL Immature Gran % (Auto) 0.6 % Neut % (Auto) 76.2 % Lymph % (Auto) 11.8 % Grady % (Auto) 9.6 % Eos % (Auto) 1.2 % Baso % (Auto) 0.6 % Neut # (Auto) 8.20 H (1.40-6.50) K/uL Lymph # (Auto) 1.27 (1.2-3.4) K/uL Grady # (Auto) 1.03 H (0.11-0.59) K/uL Eos # (Auto) 0.13 (0-0.50) K/uL Baso # (Auto) 0.06 (0-0.2) K/uL Immature Gran # (Auto) 0.06 (0.01-0.20) K/uL PT 10.8 (9.0-12.0) Seconds INR 1.0 (0.9-1.1) APTT 26.1 (21.0-31.0) Seconds PTT Ratio 0.9 Sodium 139 (136-145) mmol/L Potassium 3.9 (3.5-5.1) mmol/L Chloride 108 H (98-107) mmol/L Carbon Dioxide 23 (21-32) mmol/L Anion Gap 8 (3-11) BUN 28 H (6-23) mg/dl Creatinine 0.96 (0.6-1.4) mg/dl Est Cr Clr Drug Dosing 50.5 ml/min Est GFR ( Amer) 84.4 ml/min Est GFR (Non-Af Amer) 72.8 ml/min BUN/Creatinine Ratio 29.2 H (10-20) Glucose 102 H (70-99(Fasting)) mg/dl Calcium 9.2 (8.6-10.3) mg/dl Total Bilirubin 0.6 (0.2-1.0) mg/dl AST 40 H (13-39) U/L ALT 29 (7-52) U/L Alkaline Phosphatase 127 H (34-104) U/L Troponin I High Sens 15.7 (0-20) pg/ml Total Protein 7.6 (6.0-8.3) gm/dl Albumin 4.4 (3.4-5.0) gm/dl Globulin 3.2 (2.5-4.0) gm/dl Albumin/Globulin Ratio 1.4 (0.9-2) Lipase 15 (11-82) U/L SARS-CoV-2, RNA, NAAT (NEGATIVE) 01/06/23 01/06/23 Range/Units 19:56 20:58 WBC (4.8-10.8) K/ul RBC (4.70-6.10) M/uL Hgb (14.0-18.0) g/dl Hct (42.0-52.0) % MCV (80.0-100.0) fL MCH (25.0-34.0) pg MCHC (32.0-36.0) g/dL RDW Std Deviation (36.4-46.3) fL RDW Coeff of Carlie (11.5-14.5) % Plt Count (130-400) K/uL MPV (9.4-12.4) fL Immature Gran % (Auto) % Neut % (Auto) % Lymph % (Auto) % Grady % (Auto) % Eos % (Auto) % Baso % (Auto) % Neut # (Auto) (1.40-6.50) K/uL Lymph # (Auto) (1.2-3.4) K/uL Grady # (Auto) (0.11-0.59) K/uL Eos # (Auto) (0-0.50) K/uL Baso # (Auto) (0-0.2) K/uL Immature Gran # (Auto) (0.01-0.20) K/uL PT (9.0-12.0) Seconds INR (0.9-1.1) APTT (21.0-31.0) Seconds PTT Ratio Sodium (136-145) mmol/L Potassium (3.5-5.1) mmol/L Chloride (98-107) mmol/L Carbon Dioxide (21-32) mmol/L Anion Gap (3-11) BUN (6-23) mg/dl Creatinine (0.6-1.4) mg/dl Est Cr Clr Drug Dosing ml/min Est GFR ( Amer) ml/min Est GFR (Non-Af Amer) ml/min BUN/Creatinine Ratio (10-20) Glucose (70-99(Fasting)) mg/dl Calcium (8.6-10.3) mg/dl Total Bilirubin (0.2-1.0) mg/dl AST (13-39) U/L ALT (7-52) U/L Alkaline Phosphatase (34-104) U/L Troponin I High Sens 19.0 (0-20) pg/ml Total Protein (6.0-8.3) gm/dl Albumin (3.4-5.0) gm/dl Globulin (2.5-4.0) gm/dl Albumin/Globulin Ratio (0.9-2) Lipase (11-82) U/L SARS-CoV-2, RNA, NAAT NEGATIVE (NEGATIVE) Administered Medications Discontinued Medications Aspirin (Aspirin Chew 324 Mg) 324 mg PO NOW STA Stop: 01/06/23 18:41 Last Admin: 01/06/23 18:58 Dose: Not Given Documented By: ES Imaging Data Attestation: I personally reviewed and interpreted this imaging study as follows: My Impression: 1 view chest x-ray was obtained in the emergency department. My interpretation is no free air, no definite infiltrate, this was compared to a chest x-ray from August 12, 2019. No significant changes were noted. Final report pending CT of the head was obtained in the emergency department. My interpretation is no intracranial hemorrhage, no mass effect, final report below. Radiologist's Impression: Chest X-Ray 01/06/23 18:40 XR chest 1V portable CLINICAL HISTORY: Chest pain, nonspecific TECHNIQUE: Single frontal radiograph of the chest was obtained. Comparison: Comparison is made to chest radiograph 08/12/2019 FINDINGS: No lines and tubes are seen. Cardiomegaly is noted. The lungs are clear. No evidence of pleural effusion or pneumothorax. IMPRESSION: No acute chest disease. ACT 112: Negative or not required by law. Electronically signed by: Ace Doll M.D. 01/06/2023 7:[address] 01/06/23 18:40 CT head/brain wo con CLINICAL HISTORY: dizzy Technique: Contiguous axial CT images of the head were acquired from the base of the skull to the vertex without intravenous contrast administration. Images were viewed in brain, subdural and bone windows. Automated dose lowering techniques and/or adjustment according to patient size were utilized for this exam. Comparison: None available at the time of this dictation. Findings: Areas of decreased attenuation are present in the periventricular and subcortical white matter bilaterally consistent with small vessel ischemic disease. Generalized cerebral atrophy with commensurate enlargement of the ventricles, sulci, and cisterns is also present. There is no acute intracranial hemorrhage or evidence of acute territorial infarction. No shift of the midline structures, mass effect, or extra-axial abnormalities are shown. Atherosclerotic calcifications are present in the intracranial segments of the internal carotid arteries. Given septum pellucidum is noted. Left greater than right maxillary sinusitis opacification is seen. The orbits appear normal. There are no acute fractures of the calvaria or scalp swelling. Impression: No acute intracranial hemorrhage, no evidence of acute territorial infarction or other acute intracranial disease process. ACT 112: Negative or not required by law. Electronically signed by: Ace Doll M.D. 01/06/2023 7:14 PM Discharge Plan Visit Data Chief Complaint: Chest Pain Stated Complaint: CHEST PAIN,NOT GOOD BALANCE,CHILLS ED Provider: Walker Thomson Discharge Problem: Chest pain, Abnormal EKG, Bradycardia, sinus Patient Disposition: Being Evaluated by Hospitalist Forms Stand Alone Forms: [facility] Prescriptions Prescriptions: No Action Creon 24,000-76,000 -120,000 unit capsule,delayed release(DR/EC) 1 cap PO AC Qty: 270 3RF Rx Instructions: administer with meals and/or snacks magnesium oxide 250 mg magnesium tablet 250 mg PO QAM tamsulosin 0.4 mg capsule 0.4 mg PO DAILY Qty: 90 3RF multivitamin [Daily Multi-Vitamin] tablet 1 tab PO QAM nitroglycerin 0.4 mg tablet, sublingual 0.4 mg SL Q5M PRN (Reason: chest pain) cetirizine [Zyrtec] 10 mg tablet 10 mg PO HS atorvastatin [Lipitor] 40 mg tablet 40 mg PO HS Qty: 90 3RF omeprazole 20 mg capsule,delayed release(DR/EC) 20 mg PO QAM Qty: 90 3RF dutasteride 0.5 mg capsule 0.5 mg PO HS Referrals Referrals: Qing Bledsoe MD [Primary Care Provider] -
--- NOTE | 2023-01-06 19:15 | CT Scan Report ---
CT head/brain wo con CLINICAL HISTORY: dizzy Technique: Contiguous axial CT images of the head were acquired from the base of the skull to the darleen mamta without intravenous contrast administration. Images were viewed in brain, subdural and bone [facility]. Automated dose lowering techniques and/or adjustment according to patient size were utilized for this exam. Comparison: None available at the time of this dictation. Findings: Areas of decreased attenuation are present in the periventricular and subcortical white matter bilate rally consistent with small vessel ischemic disease. Generalized cerebral atrophy with commensurate e nlargement of the ventricles, sulci, and cisterns is also present. There is no acute intracranial hem orrhage or evidence of acute territorial infarction. No shift of the midline structures, mass effect, or extra-axial abnormalities are shown. Atherosclerotic calcifications are present in the intracran ial segments of the internal carotid arteries. Given septum pellucidum is noted. Left greater than right maxillary sinusitis opacification is seen. The orbits appear normal. There a re no acute fractures of the calvaria or scalp swelling. Impression: No acute intracranial hemorrhage, no evidence of acute territorial infarction or other acute intracra nial disease process. ACT 112: Negative or not required by law. Electronically signed by: Ace Doll M.D. 01/06/2023 7:14 PM
[2023-01-06 19:33] LABS: Basophils # (auto) 0.06 K/uL (0-0.2); Basophils % (auto) 0.6 %; Eosinophils # (auto) 0.13 K/uL (0-0.50); Eosinophils % (auto) 1.2 %; Hematocrit (blood only) 45.6 % (42.0-52.0); Immature Granulocytes # (auto) 0.06 K/uL (0.01-0.20); Immature Granulocytes % (auto) 0.6 %; Lymphocytes # (auto) 1.27 K/uL (1.2-3.4); Lymphocytes % (auto) 11.8 %; Mean Corpuscular Hemoglobin 31.6 pg (25.0-34.0); Mean Corpuscular Hgb Conc 32.9 g/dL (32.0-36.0); Mean Corpuscular Volume 96.2 fL (80.0-100.0); Mean Platelet Volume 11.4 fL (9.4-12.4); Monocytes # (auto) 1.03 K/uL (0.11-0.59); Monocytes % (auto) 9.6 %; Neutrophils % (auto) 76.2 %; Platelet Count 223 K/uL (130-400); RDW Coefficient of Variation 13.2 % (11.5-14.5); Red Blood Count 4.74 M/uL (4.70-6.10); White Blood Count 10.75 K/ul (4.8-10.8)
[2023-01-06 19:36] LABS: Albumin Globulin Ratio 1.4 (0.9-2); Albumin Level 4.4 gm/dl (3.4-5.0); BUN Creatinine Ratio 29.2 (10-20); Bilirubin,Total 0.6 mg/dl (0.2-1.0); Calcium 9.2 mg/dl (8.6-10.3); Creatinine Clr Calc Pharmacy 50.5 ml/min; Est GFR (African American) 84.4 ml/min; Est GFR (Non-African American) 72.8 ml/min; Globulin 3.2 gm/dl (2.5-4.0); Potassium 3.9 mmol/L (3.5-5.1); Total Protein 7.6 gm/dl (6.0-8.3)
[2023-01-06 19:42] LABS: Troponin I High Sensitivity 15.7 pg/ml (0-20)
--- NOTE | 2023-01-06 19:45 | XRay Report ---
XR chest 1V portable CLINICAL HISTORY: Chest pain, nonspecific TECHNIQUE: Single frontal radiograph of the chest was obtained. Comparison: Comparison is made to chest radiograph 08/12/2019 FINDINGS: No lines and tubes are seen. Cardiomegaly is noted. The lungs are clear. No evidence of pleural effus ion or pneumothorax. IMPRESSION: No acute chest disease. ACT 112: Negative or not required by law. Electronically signed by: Ace Doll M.D. 01/06/2023 7:44 PM
[2023-01-06 20:07] LABS: Partial Thromboplastin Ratio 0.9; Partial Thromboplastin Time 26.1 Seconds (21.0-31.0); Prothrombin Time 10.8 Seconds (9.0-12.0)
--- NOTE | 2023-01-06 23:13 | History & Physical Report ---
Date of Service January 06, 2023 Assessment & Plan (1) Confusion and disorientation: (2) Chest pain: (3) Bradycardia, sinus: (4) Enlarged prostate with lower urinary tract symptoms (LUTS): (5) History of pulmonary embolism: (6) CAD (coronary artery disease): (7) Pancreatic neoplasm: (8) Hypercholesterolemia: (9) Hypertension: (10) Stented coronary artery: (11) Prolonged QT interval: Plan Confusion and disorientation- Self-limited about 15-minute duration The patient will be admitted to telemetry for serial cardiac enzymes, serial EKG's, cardiac rhythm monitoring and a 2-D echocardiogram with Dopplers. CT head without contrast negative MRI brain without contrast negative MRA head and neck both negative Patient noted to have significant bradycardia on EKG and heart monitor in ED Patient also showed symptoms of dehydration, as he noted himself after having [place] the [place] on [place] Mild dehydration- May be the biggest contributor to his symptoms IV fluids, normal saline plus KCl 20 mEq at 100 mils per hour x1 L CAD/hypertension/stented coronary artery/bradycardia- The patient will be admitted to telemetry for serial cardiac enzymes, serial EKG's, cardiac rhythm monitoring and a 2-D echocardiogram with Dopplers Patient's heart rate in the ED was in the 40s for the most part Patient reports to me that at rest his heart rate typically has been in the 40s He is not on any negative inotropes Cardiac work-up as noted Hyperlipidemia- Continue atorvastatin 40 mg at bedtime Check a hemoglobin A1c BPH with LUTS- Continue dutasteride 0.5 mg at bedtime Move tamsulosin 0.4 mg to bedtime GERD- Change omeprazole to pantoprazole History of Present Illness Chief Complaint: The patient presents to the emergency department with concerns regarding chest discomfort and cold sweats, disorientation and confusion, after having played a round of golf this morning, and then running some errands including to the bank, and then returned home and developed the above symptoms. He reports it was a hot day while golfing, had some coffee, and he may not have kept up with his full amount of liquids Primary Care Provider: Qing Bledsoe MD The patient is an 82-year-old male with a past medical history including BPH with LUTS, GI bleed, anemia, PE, CAD, pancreatic neoplasm, SNHL bilaterally, hy pertension, hypercholesterolemia, OA, prolonged QT, hyperglycemia, and CAD with stented coronary artery. The patient developed symptoms as noted above, with duration about 15 minutes, and resolved spontaneously by the time of arrival to the ED. Allergies Allergy/AdvReac Type Severity Reaction Status Date / Time morphine AdvReac Mild nausea Verified 01/06/23 19:07 Home Medications Medication Instructions Recorded Confirmed Type cetirizine 10 mg tablet (Zyrtec) 10 mg PO HS 08/16/19 01/06/23 History multivitamin (Daily Multi-Vitamin 1 tab PO QAM 08/16/19 01/06/23 History tablet) nitroglycerin 0.4 mg sublingual 0.4 mg sublingual Q5M PRN chest 08/16/19 0 01/06/23 History tablet pain magnesium oxide 250 mg PO QAM 11/07/19 01/06/23 History atorvastatin 40 mg tablet (Lipitor) 40 mg PO HS #90 tabs 07/14/22 01/06/23 Rx omeprazole 20 mg capsule,delayed 20 mg PO QAM #90 caps 07/14/22 01/06/23 Rx release vgjnxv-gjvgnlri-hmxmern 1 cap PO AC #270 caps 10/11/22 01/06/23 Rx 24,000-76,000-120,000 unit capsule,delayed rel (Creon) tamsulosin 0.4 mg capsule 0.4 mg PO DAILY #90 caps 12/07/22 01/06/23 Rx dutasteride 0.5 mg capsule 0.5 mg PO HS 01/06/23 01/06/23 History Past Med/Surg History Medical History (Updated 01/07/23 @ 04:48 by El Magdaleno MD) Anemia Colon cancer ~1991 Diverticular disease Enlarged prostate with lower urinary tract symptoms (LUTS) [place] filter in place History of anesthesia reaction in 2013--difficulty urinating after gallbladder removal History of coronary artery disease History of DVT (deep vein thrombosis) s/p colon resection History of irregular heartbeat unsure of name History of pulmonary embolism perioperative/surrounding hospitalizations Hyperlipidemia Osteoarthritis Pancreatic lesion (04/24/14) Pancreatic neoplasm Benign Mucinous IPMN s/p whipple resection Pancreatitis ~2014, several episodes. Prolonged QT interval Small bowel obstruction 2013 Surgical History History of cardiac cath x1 stent (~2005). CODIE Ewing, follows with Dr Stevens annually History of colonoscopy History of colostomy 2013 History of colostomy reversal History of esophagogastroduodenoscopy (EGD) EUS History of left cataract extraction History of repair of rotator cuff right x2 History of right cataract surgery History of tonsillectomy Hx of abdominal surgery Whipple procedure. CODIE Ewing. (benign pancreatitic lesion) S/P appendectomy S/P cholecystectomy S/P colon resection ~1991 r/t colon cancer ~2013 r/t diverticulitis S/P inguinal hernia repair left S/P vascular surgery placement of [place] filter Family History Father Stroke Brother Myocardial infarction Other Family history non-contributory No family history of adverse response to anesthesia Denies family history of Ovarian cancer Prostate cancer Breast cancer Colorectal cancer Social History Smoking Status: Unknown if ever smoked Age Started Using Tobacco: 29; Age Quit Using Tobacco: 39; Second Hand Exposure: No; Do You Dip or Chew Tobacco: No; Hx Alcohol Use: Yes Alcohol type: wine and hard liquor Hx Substance Use: No Preferred Language: Somali Communication Ability: Effective Bevel Face Stoner And Polisher Required: No Beliefs That Will Affect Care: None marital status: Current Living Situation: Spouse current occupational status: retired Other Information That Helps Us Care for You: No Feels Safe at Home: Yes Safety Concerns: Feels Safe At This Time Childhood Exposure to Second-Hand Smoke: No Dental Care, Regularly: Yes Physical Activity Frequency: 5-6 Times per Week Seatbelt Use: always Sunscreen Use: Yes Assistive Devices: Glasses Review of Systems Review of Systems: The patient denies chest pain, palpitations, shortness of breath, dyspnea on exertion, cough, lower extremity swelling, sore throat, nausea, vomiting, diarrhea , constipation, abdominal pain, pelvic pain, blood in urine or stool, dysuria, urinary frequency or urgency, loss of consc iousness, rash, abnormal bruising or bleeding, Focal weakness, numbness or tingling in arms or legs, generalized arthralgias or myalgias, back or neck pain, or night sweats. The review of systems is otherwise negative other than for that already noted above, and at least 10 systems have been reviewed. Physical Exam Physical Exam: The patient is awake, alert and oriented 3, well developed and well nourished, normocephalic and atraumatic, lying in bed and in no acute distress. HEENT--PERRL, EOMI, mucous membranes and oropharynx mildly dry. Neck--supple. No JVD. No bruits. Thyroid normal, trachea midline, no adenopathy. Heart--normal S1 and S2. No murmurs, rubs or gallops. Lungs--clear bilaterally, no respiratory distress, no accessory muscle use. Abdomen--normal bowel sounds and soft. Nontender. Nondistended, no hernias or masses, no organomegaly. Extremities--no cyanosis or clubbing. No edema. There are good distal pulses b/l. Dermatologic--normal skin turgor, normal color, no abnormal lymph nodes, no rash. Neurologic--cranial nerves II through XII grossly intact. Rheumatologic--normal range of motion. Psychiatric--normal affect. Results & Data Results & Data Vital Signs (Past 12 Hours) Vital Signs Temp Pulse Resp BP Pulse Ox O2 Del Method 01/06/23 22:30 38 L 13 98 01/06/23 22:30 145/81 H 01/06/23 22:00 151/62 H 01/06/23 22:00 52 L 14 97 01/06/23 21:30 42 L 12 01/06/23 21:30 122/65 01/06/23 21:00 51 L 17 98 01/06/23 21:00 125/72 01/06/23 20:30 63 16 01/06/23 20:30 153/76 H 01/06/23 20:23 55 L 15 97 01/06/23 20:30 59 L 01/06/23 19:13 98 Room Air 01/06/23 18:29 36.6 C 88 16 158/81 H 97 Room Air Laboratory Results Laboratory Results WBC 6.59 K/ul (4.8-10.8) 01/07/23 01:41 RBC 4.33 M/uL (4.70-6.10) L 01/07/23 01:41 Hgb 13.6 g/dl (14.0-18.0) L 01/07/23 01:41 Hct 42.4 % (42.0-52.0) 01/07/23 01:41 MCV 97.9 fL (80.0-100.0) 01/07/23 01:41 MCH 31.4 pg (25.0-34.0) 01/07/23 01:41 MCHC 32.1 g/dL (32.0-36.0) 01/07/23 01:41 RDW Std Deviation 47.4 fL (36.4-46.3) H 01/07/23 01:41 RDW Coeff of Carlie 13.1 % (11.5-14.5) 01/07/23 01:41 Plt Count 171 K/uL (130-400) 01/07/23 01:41 MPV 11.4 fL (9.4-12.4) 01/07/23 01:41 Immature Gran % (Auto) 0.3 % 01/07/23 01:41 Neut % (Auto) 68.1 % 01/07/23 01:41 Lymph % (Auto) 21.9 % 01/07/23 01:41 [place] % (Auto) 7.1 % 01/07/23 01:41 Eos % (Auto) 2.0 % 01/07/23 01:41 Baso % (Auto) 0.6 % 01/07/23 01:41 Neut # (Auto) 4.49 K/uL (1.40-6.50) 01/07/23 01:41 Lymph # (Auto) 1.44 K/uL (1.2-3.4) 01/07/23 01:41 [place] # (Auto) 0.47 K/uL (0.11-0.59) 01/07/23 01:41 Eos # (Auto) 0.13 K/uL (0-0.50) 01/07/23 01:41 Baso # (Auto) 0.04 K/uL (0-0.2) 01/07/23 01:41 Immature Gran # (Auto) 0.02 K/uL (0.01-0.20) 01/07/23 01:41 PT 10.8 Seconds (9.0-12.0) 01/06/23 18:49 INR 1.0 (0.9-1.1) 01/06/23 18:49 APTT 26.1 Seconds (21.0-31.0) 01/06/23 18:49 PTT Ratio 0.9 01/06/23 18:49 Sodium 139 mmol/L (136-145) 01/07/23 01:41 Potassium 3.8 mmol/L (3.5-5.1) 01/07/23 01:41 Chloride 108 mmol/L (98-107) H 01/07/23 01:41 Carbon Dioxide 25 mmol/L (21-32) 01/07/23 01:41 Anion Gap 6 (3-11) 01/07/23 01:41 BUN 23 mg/dl (6-23) 01/07/23 01:41 Creatinine 0.86 mg/dl (0.6-1.4) 01/07/23 01:41 Est Cr Clr Drug Dosing 65.1 ml/min 01/07/23 01:41 Est GFR ( Amer) 92.9 ml/min 01/07/23 01:41 Est GFR (Non-Af Amer) 80.2 ml/min 01/07/23 01:41 BUN/Creatinine Ratio 26.7 (10-20) H 01/07/23 01:41 Glucose 193 mg/dl (70-99(Fasting)) H 01/07/23 01:41 Calcium 8.8 mg/dl (8.6-10.3) 01/07/23 01:41 Phosphorus 2.9 mg/dl (2.5-4.9) 01/07/23 01:41 Magnesium 1.9 mg/dl (1.7-2.4) 01/07/23 01:41 Total Bilirubin 0.6 mg/dl (0.2-1.0) 01/06/23 18:49 AST 40 U/L (13-39) H 01/06/23 18:49 ALT 29 U/L (7-52) 01/06/23 18:49 Alkaline Phosphatase 127 U/L (34-104) H 01/06/23 18:49 Troponin I High Sens 33.1 pg/ml (0-20) H D 01/07/23 01:41 Total Protein 7.6 gm/dl (6.0-8.3) 01/06/23 18:49 Albumin 3.6 gm/dl (3.4-5.0) 01/07/23 01:41 Globulin 3.2 gm/dl (2.5-4.0) 01/06/23 18:49 Albumin/Globulin Ratio 1.4 (0.9-2) 01/06/23 18:49 Lipase 15 U/L (11-82) 01/06/23 18:49 SARS-CoV-2, RNA, NAAT NEGATIVE (NEGATIVE) 01/06/23 19:56 Impressions Chest X-Ray 01/06/23 18:40 XR chest 1V portable CLINICAL HISTORY: Chest pain, nonspecific TECHNIQUE: Single frontal radiograph of the chest was obtained. Comparison: Comparison is made to chest radiograph 08/12/2019 FINDINGS: No lines and tubes are seen. Cardiomegaly is noted. The lungs are clear. No evidence of pleural effusion or pneumothorax. IMPRESSION: No acute chest disease. ACT 112: Negative or not required by law. Electronically signed by: Ace Doll M.D. 01/06/2023 7:[address] 01/06/23 18:40 CT head/brain wo con CLINICAL HISTORY: dizzy Technique: Contiguous axial CT images of the head were acquired from the base of the skull to the vertex without intravenous contrast administration. Images were viewed in brain, subdural and bone windows. Automated dose lowering techniques and/or adjustment according to patient size were utilized for this exam. Comparison: None available at the time of this dictation. Findings: Areas of decreased attenuation are present in the periventricular and subcortical white matter bilaterally consistent with small vessel ischemic disease. Generalized cerebral atrophy with commensurate enlargement of the vent ricles, sulci, and cisterns is also present. There is no acute intracranial hemorrhage or evidence of acute territorial infarction. No shift of the midline structures, mass effect, or extra-axial abnormalities are shown. Atherosclerotic calcifications are present in the intracranial segments of the internal carotid arteries. Given septum pellucidum is noted. Left greater than right maxillary sinusitis opacification is seen. The orbits appear normal. There are no acute fractures of the calvaria or scalp swelling. Impression: No acute intracranial hemorrhage, no evidence of acute territorial infarction or other acute intracranial disease process. ACT 112: Negative or not required by law. Electronically signed by: Ace Doll M.D. 01/06/2023 7:14 PM Brain MRI 01/06/23 23:08 Exam(s): MRI HEAD Without Contrast EXAM: MR Head Without Intravenous Contrast CLINICAL HISTORY: Reason for exam: confusion and disorientation. TECHNIQUE: Magnetic resonance images of the head/brain without intravenous contrast in multiple planes. COMPARISON: No relevant prior studies available. FINDINGS: Brain: Mild volume loss with prominent ventricles and sulci. T2/flair hyperintense foci in the periventricular and subcortical white matter likely due to chronic small vessel disease. No hemorrhage. No acute infarct. Ventricles: See above. Bones/joints: Unremarkable. Sinuses: Left maxillary sinus mucosal thickening. No acute sinusitis. Mastoid air cells: Unremarkable as visualized. No mastoid effusion. Orbits: Bilateral ocular lens replacement. IMPRESSION: No acute findings in the head/brain. Electronically signed by: Michelle Mac M.D. 01/07/23 00:33 AM Head MRA 01/06/23 23:08 Exam(s): MRA HEAD Without Contrast EXAM: MR Angiography Head Without Intravenous Contrast CLINICAL HISTORY: Reason for exam: confusion and disorientation. TECHNIQUE: Magnetic resonance angiography images of the head without intravenous contrast. COMPARISON: Head CT and brain MRI 01/06/2023 FINDINGS: Right internal carotid artery: No acute findings. Intracranial segment is patent with no significant stenosis. No aneurysm. Right anterior cerebral artery: Unremarkable. No occlusion or significant stenosis. No aneurysm. Right middle cerebral artery: Unremarkable. No occlusion or significant stenosis. No aneurysm. Right posterior cerebral artery: Unremarkable. No occlusion or significant stenosis. No aneurysm. Right vertebral artery: Unremarkable as visualized. Left internal carotid artery: No acute findings. Intracranial segment is patent with no significant stenosis. No aneurysm. Left anterior cerebral artery: Unremarkable. No occlusion or significant stenosis. No aneurysm. Left middle cerebral artery: Unremarkable. No occlusion or significant stenosis. No aneurysm. Left posterior cerebral artery: Unremarkable. No occlusion or significant stenosis. No aneurysm. Left vertebral artery: Unremarkable as visualized. Basilar artery: Unremarkable. No occlusion or significant stenosis. No aneurysm. IMPRESSION: Normal head/brain MRA. Electronically signed by: Michelle Mac M.D. 01/07/23 00:38 AM Neck MRA 01/07/23 00:15 Exam(s): MRA NECK W/WO Contrast IV Amt: 7cc gadavist EXAM: MR Angiography Neck Without and With Intravenous Contrast CLINICAL HISTORY: Reason for exam: confused and disorientation. TECHNIQUE: Magnetic resonance angiography images of the neck without and with intravenous contrast. CONTRAST: Patient received 7cc gadavist of IV contrast COMPARISON: MRI and MRA head 01/06/2023, CT head 01/06/2023 FINDINGS: Right common carotid artery: Unremarkable. No significant stenosis. No dissection or occlusion. Right internal carotid artery: Unremarkable. Extracranial segment is patent with no significant stenosis. No dissection or occlusion. Right external carotid artery: Unremarkable. No occlusion. Right vertebral artery: Unremarkable. No significant stenosis. No dissection or occlusion. Left common carotid artery: Unremarkable. No significant stenosis. No dissection or occlusion. Left internal carotid artery: Unremarkable. Extracranial segment is patent with no significant stenosis. No dissection or occlusion. Left external carotid artery: Unremarkable. No occlusion. Left vertebral artery: Larger dominant left vertebral artery. Mild irregularity of the V2/V3 junction versus artifact. No significant stenosis. No dissection or occlusion. Soft tissues: Unremarkable as visualized. CAROTID STENOSIS REFERENCE USING NASCET CRITERIA: % ICA stenosis = (1 - narrowest ICA diameter/diameter of distal cervical ICA) x 100. Mild - <50% stenosis. Moderate - 50-69% stenosis. Severe - 70-94% stenosis. Near occlusion - 95-99% stenosis. Occluded - 100% stenosis. IMPRESSION: 1. No evidence of occlusion, severe stenosis or dissection. 2. Larger dominant left vertebral artery. Mild irregularity of the V2/V3 junction versus artifact. Electronically signed by: Michelle Mac M.D. 01/07/23 01:23 AM Code Status & VTE Plan Code Status Full code PG Care Time/CCT Total # of Minutes Spent Total Time Spent with Patient: Total time spent is greater than 50% in coordination of care (as documented) at patient's floor/unit and/or counseling patient: Coding Level of Care Code 33413 INT INP/OBS CARE 3/75MIN Diagnoses Confusion and disorientation R41.0 Chest pain R07.9 Chest pain type: unspecified Bradycardia, sinus R00.1 Enlarged prostate with lower urinary tract symptoms (LUTS) N40.1 History of pulmonary embolism Z86.711 CAD (coronary artery disease) I25.10 Coronary Disease-Associated Artery/Lesion type: [place] artery [place] vs. transplanted heart: [place] heart Associated angina: without angina Pancreatic neoplasm D49.0 Hypercholesterolemia E78.00 Hypertension I10 Stented coronary artery Z95.5 Prolonged QT interval R94.31 (2) Chest pain Chest pain type: unspecified Qualified Code(s): R07.9 - Chest pain, unspecified (6) CAD (coronary artery disease) Coronary Disease-Associated Artery/Lesion type: [place] artery [place] vs. transplanted heart: [place] heart Associated angina: without angina Qualified Code(s): I25.10 - Atherosclerotic heart disease of [place] coronary artery without angina pectoris
--- NOTE | 2023-01-07 00:33 | Magnetic Resonance Report ---
Exam(s): MRI HEAD Without Contrast EXAM: MR Head Without Intravenous Contrast CLINICAL HISTORY: Reason for exam: confusion and disorientation. TECHNIQUE: Magnetic resonance images of the head/brain without intravenous contrast in multiple planes. COMPARISON: No relevant prior studies available. FINDINGS: Brain: Mild volume loss with prominent ventricles and sulci. T2/flair hyperintense foci in the periventricular and subcortical white matter likely due to chronic small vessel disease. No hemorrhage. No acute infarct. Ventricles: See above. Bones/joints: Unremarkable. Sinuses: Left maxillary sinus mucosal thickening. No acute sinusitis. Mastoid air cells: Unremarkable as visualized. No mastoid effusion. Orbits: Bilateral ocular lens replacement. IMPRESSION: No acute findings in the head/brain. Electronically signed by: Michelle Mac M.D. 01/07/23 00:33 AM
--- NOTE | 2023-01-07 00:39 | Magnetic Resonance Report ---
Exam(s): MRA HEAD Without Contrast EXAM: MR Angiography Head Without Intravenous Contrast CLINICAL HISTORY: Reason for exam: confusion and disorientation. TECHNIQUE: Magnetic resonance angiography images of the head without intravenous contrast. COMPARISON: Head CT and brain MRI 01/06/2023 FINDINGS: Right internal carotid artery: No acute findings. Intracranial segment is patent with no significant stenosis. No aneurysm. Right anterior cerebral artery: Unremarkable. No occlusion or significant stenosis. No aneurysm. Right middle cerebral artery: Unremarkable. No occlusion or significant stenosis. No aneurysm. Right posterior cerebral artery: Unremarkable. No occlusion or significant stenosis. No aneurysm. Right vertebral artery: Unremarkable as visualized. Left internal carotid artery: No acute findings. Intracranial segment is patent with no significant stenosis. No aneurysm. Left anterior cerebral artery: Unremarkable. No occlusion or significant stenosis. No aneurysm. Left middle cerebral artery: Unremarkable. No occlusion or significant stenosis. No aneurysm. Left posterior cerebral artery: Unremarkable. No occlusion or significant stenosis. No aneurysm. Left vertebral artery: Unremarkable as visualized. Basilar artery: Unremarkable. No occlusion or significant stenosis. No aneurysm. IMPRESSION: Normal head/brain MRA. Electronically signed by: Michelle Mac M.D. 01/07/23 00:38 AM
[2023-01-07] MEDS ORDERED: GADOBUTROL 65ML VIAL IV ONE (00:48)
[2023-01-07] MEDS ORDERED: NSS + 20MEQ KCL 20 MEQ/1,000 ML BAG IV SCH (00:49)
[2023-01-07] MEDS ORDERED: ACETAMINOPHEN 325 MG TAB PO PRN (00:49)
[2023-01-07] MEDS ORDERED: ONDANSETRON INJ 2 MG/ML 2 ML VIAL IV PRN (00:49)
[2023-01-07] MEDS ORDERED: NITROGLYCERIN SL 0.4 MG/TAB TAB SL PRN (00:49)
--- NOTE | 2023-01-07 01:24 | Magnetic Resonance Report ---
Exam(s): MRA NECK W/WO Contrast IV Amt: 7cc gadavist EXAM: MR Angiography Neck Without and With Intravenous Contrast CLINICAL HISTORY: Reason for exam: confused and disorientation. TECHNIQUE: Magnetic resonance angiography images of the neck without and with intravenous contrast. CONTRAST: Patient received 7cc gadavist of IV contrast COMPARISON: MRI and MRA head 01/06/2023, CT head 01/06/2023 FINDINGS: Right common carotid artery: Unremarkable. No significant stenosis. No dissection or occlusion. Right internal carotid artery: Unremarkable. Extracranial segment is patent with no significant stenosis. No dissection or occlusion. Right external carotid artery: Unremarkable. No occlusion. Right vertebral artery: Unremarkable. No significant stenosis. No dissection or occlusion. Left common carotid artery: Unremarkable. No significant stenosis. No dissection or occlusion. Left internal carotid artery: Unremarkable. Extracranial segment is patent with no significant stenosis. No dissection or occlusion. Left external carotid artery: Unremarkable. No occlusion. Left vertebral artery: Larger dominant left vertebral artery. Mild irregularity of the V2/V3 junction versus artifact. No significant stenosis. No dissection or occlusion. Soft tissues: Unremarkable as visualized. CAROTID STENOSIS REFERENCE USING NASCET CRITERIA: % ICA stenosis = (1 - narrowest ICA diameter/diameter of distal cervical ICA) x 100. Mild - <50% stenosis. Moderate - 50-69% stenosis. Severe - 70-94% stenosis. Near occlusion - 95-99% stenosis. Occluded - 100% stenosis. IMPRESSION: 1. No evidence of occlusion, severe stenosis or dissection. 2. Larger dominant left vertebral artery. Mild irregularity of the V2/V3 junction versus artifact. Electronically signed by: Michelle Mac M.D. 01/07/23 01:23 AM
[2023-01-07 02:13] LABS: Basophils # (auto) 0.04 K/uL (0-0.2); Basophils % (auto) 0.6 %; Eosinophils # (auto) 0.13 K/uL (0-0.50); Hematocrit (blood only) 42.4 % (42.0-52.0); Hemoglobin 13.6 g/dl (14.0-18.0); Immature Granulocytes # (auto) 0.02 K/uL (0.01-0.20); Immature Granulocytes % (auto) 0.3 %; Lymphocytes # (auto) 1.44 K/uL (1.2-3.4); Lymphocytes % (auto) 21.9 %; Mean Corpuscular Hemoglobin 31.4 pg (25.0-34.0); Mean Corpuscular Hgb Conc 32.1 g/dL (32.0-36.0); Mean Corpuscular Volume 97.9 fL (80.0-100.0); Mean Platelet Volume 11.4 fL (9.4-12.4); Monocytes # (auto) 0.47 K/uL (0.11-0.59); Monocytes % (auto) 7.1 %; Neutrophils # (auto) 4.49 K/uL (1.40-6.50); Neutrophils % (auto) 68.1 %; Platelet Count 171 K/uL (130-400); RDW Coefficient of Variation 13.1 % (11.5-14.5); RDW Standard Deviation 47.4 fL (36.4-46.3); Red Blood Count 4.33 M/uL (4.70-6.10); White Blood Count 6.59 K/ul (4.8-10.8)
[2023-01-07 02:26] LABS: Albumin Level 3.6 gm/dl (3.4-5.0); BUN Creatinine Ratio 26.7 (10-20); Calcium 8.8 mg/dl (8.6-10.3); Creatinine Clr Calc Pharmacy 65.1 ml/min; Est GFR (African American) 92.9 ml/min; Est GFR (Non-African American) 80.2 ml/min; Magnesium 1.9 mg/dl (1.7-2.4); Phosphorus 2.9 mg/dl (2.5-4.9); Potassium 3.8 mmol/L (3.5-5.1)
[2023-01-07] MEDS: PANCREAZE (LIPASE 10,500U) CAP PO SCH ×3 (08:25→16:13)
[2023-01-07] MEDS ORDERED: ASPIRIN 81 MG ECTAB PO SCH (09:00)
[2023-01-07] MEDS ORDERED: PANTOprazole 40 MG TAB PO SCH (09:00)
[2023-01-07] MEDS ORDERED: MULTIVITAMIN TAB PO SCH (09:00)
[2023-01-07] MEDS ORDERED: MAGNESIUM OXIDE 400 MG TAB PO SCH (09:00)
--- NOTE | 2023-01-07 12:34 | Discharge Summary ---
Discharge Summary Date of Service January 07, 2023 Admission HPI Per Admitting Provider The patient is an 82-year-old male with a past medical history including BPH with LUTS, GI bleed, anemia, PE, CAD, pancreatic neoplasm, SNHL bilaterally, hypertension, hypercholesterolemia, OA, prolonged QT, hyperglycemia, and CAD with stented coronary artery. The patient developed symptoms as noted above, with duration about 15 minutes, and resolved spontaneously by the time of arrival to the ED. Admission Exam Per Admitting Provider The patient is awake, alert and oriented 3, well developed and well nourished, normocephalic and atraumatic, lying in bed and in no acute distress. HEENT--PERRL, EOMI, mucous membranes and oropharynx mildly dry. Neck--supple. No JVD. No bruits. Thyroid normal, trachea midline, no adenopathy. Heart--normal S1 and S2. No murmurs, rubs or gallops. Lungs--clear bilaterally, no respiratory distress, no accessory muscle use. Abdomen--normal bowel sounds and soft. Nontender. Nondistended, no hernias or masses, no organomegaly. Extremities--no cyanosis or clubbing. No edema. There are good distal pulses b/l. Dermatologic--normal skin turgor, normal color, no abnormal lymph nodes, no rash. Neurologic--cranial nerves II through XII grossly intact. Rheumatologic--normal range of motion. Psychiatric--normal affect. Principal Dx & Hospital Course #1 = Principal Diagnosis (1) Confusion and disorientation: With brief episode of confusion, disorientation yesterday afternoon in the setting of what I suspect was dehydration. Patient admits to poor water consumption, perhaps around 20 ounces daily, and does frequently play golf / tennis (around 3 times a week total for these activities). He also drinks coffee in the morning and tea with dinner. Symptoms improved with IV fluids. Recommended increasing water intake at home to combat insensible loss, e specially on days he is outside in the heat / exercising. Brain imaging including CT Head, MRI Brain, Head/Neck MRA (2) HFrEF (heart failure with reduced ejection fraction): Echocardiogram 01/07/23 with EF 35-40%, moderate TR and MR, global hypokinesis. Unfortunately no Echo to compare on chart. Has a history of CAD s/p stent over 10 years ago. Case discussed with , recommends close urgent follow up with patient in office, troponins do not suggest acute [place], no chest pain or pressure and is extremely active in his life. CHF clinic referral also placed. No evidence of fluid overload, no diuretics given. (3) Bradycardia, sinus: Normally has HR in 40-50s at home, reports history of such since his youth, has been very active in sports his whole life. No symptomatic bradycardia this admission. (4) Palpitations: Has a history of CAD, HTN. Not on aspirin due to a history of a near-fatal GI bleed (per patient), so declines aspirin. Continue statin. BP 150s systolic, follow up with PCP. Troponin trend 15 -> 33 -> 23 this admission. On repeat interview patient denies true pain or pressure, but more like a palpitation sensation that rapidly resolved. Telemetry reviewed, sinus arrhythmia with some PACs, HR range 40-60s. Patient has been asymptomatic since arrival to ER. Patient might benefit from Holter monitor in the future if this sort of episode does not happen in the setting of acute dehydration. Evaluation of EF and WMA outpatient recommended as above. (5) Hypertension: see above (6) CAD (coronary artery disease): see above Plan Discharge home with self care, increase oral fluid intake, f/u bradyca rdia/palpitations if continue with PCP Discharge Exam Constitutional WD/WN, vitals as above Respiratory normal respiratory effort, lungs clear to auscultation Cardiovascular HR regularly irregular, no murmurs, no peripheral edema Psychiatric A+Ox3, euthymic affect Updated Medication List Medication Instructions Recorded Confirmed Type cetirizine 10 mg tablet (Zyrtec) 10 mg PO HS 08/16/19 01/06/23 History multivitamin (Daily Multi-Vitamin 1 tab PO QAM 08/16/19 01/06/23 History tablet) nitroglycerin 0.4 mg sublingual 0.4 mg sublingual Q5M PRN chest 08/16/19 01/06/23 History tablet pain magnesium oxide 250 mg PO QAM 11/07/19 01/06/23 History atorvastatin 40 mg tablet (Lipitor) 40 mg PO HS #90 tabs 07/14/22 01/06/23 Rx omeprazole 20 mg capsule,delayed 20 mg PO QAM #90 caps 07/14/22 01/06/23 Rx release ifqbtn-jtbeqyjn-ohbbcuy 1 cap PO AC #270 caps 10/11/22 01/06/23 Rx 24,000-76,000-120,000 unit capsule,delayed rel (Creon) tamsulosin 0.4 mg capsule 0.4 mg PO DAILY #90 caps 12/07/22 01/06/23 Rx dutasteride 0.5 mg capsule 0.5 mg PO HS 01/06/23 01/06/23 History Hospital Stay Data Consultations 01/06/23 22:04 ED Decision to Admit Stat Diagnostic Imagining Performed 01/06/23 18:40 CT head/brain wo con Stat 01/06/23 23:08 MRI Angio Brain [MR angio head wo con] Stat MRI Brain [MR brain wo con] Stat 01/07/23 00:15 MR angio neck wo/w con Stat Discharge Instructions Given to Patient (Per Discharging Provider) You are admitted to the hospital for evaluation of chest pressure and episode of fogginess/confusion. You had evaluation of your heart that included checking troponins, a marker of heart stress. These were not elevated enough to suggest a heart attack, which is good. Your EKG also did not show any evidence of a heart attack. You were noted to have a low heart rate, but this is not unexpected given your level of physical activity and your age. We recommended that you follow-up this heart rate with your primary care provider, and if you are having continued palpitations, they can consider things such as a continuous heart monitor to monitor you for arrhythmias. You did not have any significant arrhythmia that would cause issues while you are in the hospital. You had an echocardiogram to evaluate the pumping of your heart and the valves, and you were noted to have a mild decrease in the pumping power of your heart. Your ejection fraction was about 40%, when normal is usually about 50-55%. This was discussed with Dr. Stevens, who recommends follow up with him in the near future. Please call his office to schedule an appointment at [phone]. You will also receive a call from Corazon Mccall with our heart failure clinic; she monitors all of our patients with a lower ejection fraction. The thing to monitor is salt; try to limit salt to 2000 milligrams of salt a day. I recommend that you increase your water intake at home, especially on the days that you are going to be working out/golfing/playing tennis. I recommend that you have least about 60 ounces of water intake in your day in order to offset dehydration. Total Time Total Time Spent Total Time Spent (In Minutes): 35 min Coding Level of Care Code 48377 INP/OBS DISCH >30 MIN Diagnoses Confusion and disorientation R41.0 HFrEF (heart failure with reduced ejection fraction) I50.20 Bradycardia, sinus R00.1 Palpitations R00.2 Hypertension I10 CAD (coronary artery disease) I25.10 Associated angina: without angina Coronary Disease-Associated Artery/Lesion type: [place] artery [place] vs. transplanted heart: [place] heart
[2023-01-07] MEDS ORDERED: FINASTERIDE 5 MG TAB PO SCH (16:00)
--- NOTE | 2023-01-07 18:30 | XCELERA ---
[id number] \\[id number]
[2023-01-07] MEDS ORDERED: TAMSULOSIN HCL 0.4 MG CAP PO SCH (21:00)
[2023-01-07] MEDS ORDERED: CETIRIZINE HCL 10 MG TABLET PO SCH (21:00)
[2023-01-07] MEDS ORDERED: ATORVASTATIN 40 MG TAB PO SCH (21:00)
--- NOTE | 2023-01-08 00:21 | Electrocardiogram Report ---
Test Reason : Blood Pressure : / mmHG Vent. Rate : 062 BPM Atrial Rate : 054 BPM P-R Int : 160 ms QRS Dur : 118 ms QT Int : 474 ms P-R-T Axes : 055 -44 035 degrees QTc Int : 481 ms Sinus bradycardia with frequent Premature ventricular complexes and Premature atrial complexes Left axis deviation Non-specific intra-ventricular conduction delay Prolonged QT Abnormal ECG When compared with ECG of 12-AUG-2019 07:17, Premature ventricular complexes are now Present Premature atrial complexes are now Present Confirmed by Jatinder Sears ([id number]) on 01/08/2023 12:21:19 AM Referred By: REFERRED SELF Confirmed By:Jatinder Sears
--- NOTE | 2023-01-08 06:33 | Electrocardiogram Report ---
Test Reason : Blood Pressure : / mmHG Vent. Rate : 054 BPM Atrial Rate : 054 BPM P-R Int : 202 ms QRS Dur : 116 ms QT Int : 480 ms P-R-T Axes : 036 -52 008 degrees QTc Int : 455 ms Sinus bradycardia with Premature atrial complexes Left anterior fascicular block Abnormal ECG When compared with ECG of 06-JAN-2023 18:42, Premature ventricular complexes are no longer Present Confirmed by Jatinder Sears ([id number]) on 01/08/2023 6:33:02 AM Referred By: REFERRED SELF Confirmed By:Jatinder Sears
== END 2023-01-07 19:53 | disposition home or self-care (01) ==
LOC: ED 18:24 → 2E 18:24 → SUATTDRO 23:27 → 2E 01-07 00:01